=== PATIENT | female | born 2000 | race Caucasian/White ===

== ENCOUNTER 2024-05-29 09:28 | Outpatient (OUT) | payer OTHER, SELFPAY ==
--- NOTE | 2024-05-29 09:35 | US_ITS ---
[place] [id number] Patient Name: JORGE HESTER MRN: [id number] date: 2000 Sex: F Assigned Patient Location: US Current Patient Location: US Accession/Order Number: [id number] Exam Date: 05/29/2024 09:40 Report Date: 05/29/2024 10:29 At the request of: RONAN KOWALSKI Procedure: US OB growth EXAMINATION: US OB growth HISTORY: related condition in 3rd trimester, O26.93 COMPARISON: No relevant comparison available. FINDINGS: Heart Rate: 138.46 bpm Amniotic Fluid Volume: 15.7 cm, largest fluid pocket 5.3 cm Number: 1 Position: CEPHALIC BIOMETRY: BPD: 8.07 cm; 32 weeks 3 days; >97 % HC: 29.73 cm; 32 weeks 6 days; >97 % AC: 26.86 cm; 31 weeks 0 days; 89.90 % FL: 5.57 cm; 29 weeks 2 days; 40 % EFW: 1631.60 g; 89.90 %, 3 lbs. 10 oz. FL/AC: 20.74 FL/BPD: 69.03 HC/AC: 1.11 GESTATIONAL AGE: Age by EDC: 29 weeks 1 day ANANDA by EDC: 2024-08-13 Age by US: 31 weeks 3 days ANANDA by US: 2024-07-28 US/US OB growth IMPRESSION: BPD and head circumference above the 97th percentile Electronically authenticated by: BRET ROMAN Date: 05/29/2024 10:29
== END 2024-05-29 09:29 | disposition home or self-care (01) ==
LOC: US 09:32
PROVIDERS: Visit Provider Midwife
DX: O26.93 Pregnancy related conditions, unspecified, third trimester (principal); Z3A.29 29 weeks gestation of pregnancy
CPT/HCPCS: 76816

== ENCOUNTER 2024-07-16 13:07 | Outpatient (OUT) | payer OTHER, SELFPAY ==
--- NOTE | 2024-07-16 13:10 | US_ITS ---
The [address] [address] Patient Name: JORGE HESTER MRN: [id number] date: 2000 Sex: F Assigned Patient Location: US Current Patient Location: US Accession/Order Number: [id number] Exam Date: 07/16/2024 13:15 Report Date: 07/16/2024 14:09 At the request of: RONAN KOWALSKI Procedure: US OB growth EXAMINATION: US OB growth HISTORY: Large For Dates COMPARISON: ULTRASOUND OB GROWTH 05/29/2024 FINDINGS: Heart Rate: 133.00 bpm Amniotic Fluid Volume: 17.5 cm; normal range. Number: 1 Position: CEPHALIC BIOMETRY: BPD: 9.48 cm; 30 weeks 5 days; >97 % HC: 35.13 cm; 41 weeks 0 days; >97 % AC: 35.71 cm; 39 weeks 4 days; 97 % FL: 7.03 cm; 36 weeks 0 days; 46.40 % EFW: 3623.75 g; 97 % FL/AC: 19.68 FL/BPD: 74.15 HC/AC: 0.98 GESTATIONAL AGE: Age by EDC: 36 weeks 0 days ANANDA by EDC: 2024-08-13 Age by US: 38 weeks 6 days ANANDA by US: 2024-07-24 US/US OB growth IMPRESSION: 1. Single live intrauterine with growth detailed above. 2. Estimated weight is greater than 97th percentile. 3. Slightly prominent appearance of the intra-abdominal umbilical vein, 1.1 cm in diameter (of uncertain clinical significance). Electronically authenticated by: JAYDON HYDE Date: 07/16/2024 14:09
--- OUTSIDE RECORDS SUMMARY | 2024-07-16 13:25 | XMS_ITS | CCD ---
Author Organization [facility] Care Team Providers Care Lasting Machine Operator Bed Name Role Phone MISC, DOCTOR Unavailable Unavailable MISC, DOCTOR Unavailable Unavailable MISC, DOCTOR Unavailable Unavailable MISC, DOCTOR Unavailable Unavailable MISC, DOCTOR Unavailable Unavailable MISC, DOCTOR Unavailable Unavailable Tatyana Baptiste Attending Unavailable Tatyana Baptiste Referring Unavailable Victor HugoYossi Primary Care Unavailabl e WayMerlin barnett Attending Unavailable WayMerlin barnetth Referring Unavailable BroadbentYossi Hollis Primary Care Unavailabl e Merlin Sainz Attending Unavailable WayMerlin barnetth Referring Unavailable [facility] Unavailabl e LorieSonia Attending Unavailable LorieSonia khan Referring Unavailable [facility] Primary [facility] Unavailabl e Tatyana Baptiste Admitting Unavailable Tatyana Baptiste Attending Unavailable Tatyana Baptiste Referring Unavailable BroadbentYossi Hollis Primary Care Unavailabl e Unavailable Primary Care Provider Unavailabl e BHAVANIOJORDONE Attending Unavailable BHAVANIOGALRONAN Admitting Unavailable Hayley Phipps Unavailable Unavailable Primary Care Provider Unavailsrini Cohen MD, Dian Casper Primary Care Provider MARIIA MAGALLANES Attending Unavailable FLORO, RONAN Referring Unavailable FLORO, RONAN Referring Unavailable FLORORONAN L Attending Unavailable FLOROGALRONAN L Referring Unavailable FLORO, RONAN L Attending Unavailable FLORO, RONAN L Attending Unavailable FLORO, RONAN L Referring Unavailable FLORO, RONAN L Attending Unavailable FLORO, RONAN L Referring Unavailable FLORO, RONAN L Attending Unavailable FLORO, RONAN L Attending Unavailable FLORO, RONAN L Attending Unavailable FLORO, RONAN Ellis Attending Unavailable FLORO, RONAN L Attending Unavailable Medications Current Medications Medication Drug Class(es) Dates Sig (Normalized) Sig (Original) acetaminophen 325 mg oral tablet (1 source) Start: 04-28-2021 acetaminophen (TYLENOL) tablet 650 mg amoxicillin 875 mg oral tablet (1 source) Penicillin-class Antibacterial Start: 07-13-2022 take 1 tablet by mouth every twelve hours Amoxicillin 875 MG 1 tablet Orally every 12 hrs for 7 days Jun, Active benzocaine 200 mg/ml / menthol 5 mg/ml topical spray (1 source) Standardized Chemical Allergen Start: 04-28-2021 benzocaine-menthol (DERMOPLAST) 20-0.5 % spray Brompheniramine / Pseudoephedrine (1 source) alpha-Adrenergic Agonist Start: 07-13-2022 take 5 mL by mouth every six hours as needed Bromfed DM 30-2-10 MG/5ML 5 ml as needed Orally every 6 hrs Jun, Active docusate sodium 100 mg oral capsule (1 source) Start: 04-28-2021 docusate sodium (COLACE) capsule 100 mg ibuprofen 800 mg oral tablet (1 source) Nonsteroidal Anti-inflammatory Drug Start: 04-28-2021 ibuprofen (ADVIL;MOTRIN) tablet 800 mg lanolin 1000 mg/ml topical cream (1 source) Start: 04-28-2021 lansinoh lanolin ointment 1 ml methylergonovine maleate 0.2 mg/ml injection (1 source) Ergot Derivative Start: 04-28-2021 methylergonovine (METHERGINE) injection 200 mcg miSOPROStol 0.1 mg oral tablet (2 sources) Prostaglandin E1 Analog Start: 04-28-2021 miSOPROStol (CYTOTEC) tablet 800 mcg Start: 04-28-2021 miSOPROStol (C YTOTEC) tablet 200 mcg ondansetron 4 mg disintegrating oral tablet (1 source) Serotonin-3 Receptor Antagonist Start: 04-28-2021 ondansetron (ZOFRAN-ODT) disintegrating tablet 8 mg [id number] acid ( 19) 29 mg iron- 1 mg tablet,chewable (4 sources) [id number] acid ( 19) 29 mg iron- 1 mg tablet,chewable Chew 1 tablet and swallow in the morning. Active Vienva (1 source) Vienva Active witch keila 500 mg/ml medicated pad (1 source) Start: 04-28-2021 witch keila-gl ycerin ([facility]) pad Completed/Discontinued Medications Medication Drug Class(es) Dates Sig (Normalized) Sig (Original) calcium chloride 0.0014 meq/ml / potassium chloride 0.004 meq/ml / sodium chloride 0.103 meq/ml / sodium lactate 0.028 meq/ml injectable solution (1 source) Start: 04-27-2021 End: 04-28-2021 lactated ringers infusion ethinyl estradiol 0.02 mg / levonorgestrel 0.1 mg oral tablet (2 sources) Progestin, Estrogen, Progestin-containi ng Intrauterine Device Start: 06-18-2023 End: 01-09-2024 take 0.1-20 tablets by mouth in the morning levonorgestrel-eth inyl estradiol (Falmina) 0.1-20 MG-MCG tablet Indications: Encounter for gynecological examination (general) (routine) without abnormal findings Take 1 tablet by mouth in the morning. 84 tablet 3 06/18/2023 01/09/2024 Discontinued (Therapy completed) ferrous sulfate 325 mg oral tablet (2 sources) Start: 04-27-2021 End: 04-28-2021 ferrous sulfate (IRON 325) tablet 325 mg miSOPROStol (CYTOTEC) pre-split tablet TABS 25 mcg (1 source) Start: 04-27-2021 End: 04-28-2021 miSOPROStol (CYTOTEC) pre-split tablet TABS 25 mcg oxytocin (PITOCIN) 30 units in 500 mL infusion (1 source) Start: 04-27-2021 End: 04-28-2021 oxytocin (PITOCIN) 30 units in 500 mL infusion Problems Problem Classification Problem Date Documented Da te Episodic/Chronic Diabetes mellitus without complication (2 sources) Abnormal glucose tolerance test; Translations: [Other abnormal glucose] 06-04-2024 Episodic Immunizations and screening for infectious disease (1 source) Contact with and (suspected) exposure to other viral communicable diseases Episodic Other aftercare (1 source) Other termite control representative (current) drug therapy; Translations: [OTH ALF CURRENT DRUG THERAPY] Onset: 10-17-2017 Episodic Other complications of ; puerperium affecting management of mother (1 source) Maternal care for (suspected) abnormality and damage, unspecified, not applicable or unspecified; Translations: [Maternal care for (suspected) abnormality and damage, unspecified, not applicable or unspecified] Onset: 04-02-2024 Episodic Other complications of (4 sources) Finding related to ; Translations: [ related conditions, unspecified, third trimester] 05-07-2024 Episodic Other lower respiratory disease (2 sources) Cough; Translations: [Other cough] 06-22-2024 Episodic Other conditions (2 sources) Munef-ksf-cqotx at regardless of gestation period; Translations: [Other heavy for gestational age ] 07-06-2024 Episodic Other and delivery including normal (20 sources) Term ; Translations: [Encounter for supervision of normal , unspecified, unspecified trimester] Onset: 04-27-2021 Resolved: 04-29-2021 Episodic Other screening for suspected conditions (not mental disorders or infectious disease) (10 sources) Suspected disorder; Translations: [Encounter for suspected anomaly ruled out] Onset: 04-02-2024 04-02-2024 Episodic Other skin disorders (4 sources) Acne vulgaris; Translations: [ACNE VULGARIS] Onset: 10-12-2017 Episodic Other upper respiratory infections (1 source) Acute upper respiratory infection, unspecified Episodic Otitis media and related conditions (1 source) Otitis media, unspecified, right ear Episodic Unclassified (1 source) Possible Body Wall edema Onset: 04-02-2024 Viral infection (2 sources) Human papilloma virus infection; Translations: [Papillomavirus as the cause of diseases classified elsewhere] 03-09-2024 Episodic Results Test Name Value Interpretation Reference Range Facility Ultrasound - Officeon 2023 Radiology Study observation (narrative) [facility] Ultrasound - Officeon 2023 Radiology Study observation (narrative) [facility] Ultrasound - Officeon 2023 [facility] US OB 14+ WEEKS ANATOMY SCAN on 03-23-2024 US OB 14+ WEEKS ANATOMY SCAN TITLE OF EXAM: OB Ultrasound: REASON FOR EXAM: Anatomy scan. Comparison: None TECHNIQUE: Grayscale and color Doppler imaging is performed. Measurements: heart rate: 139 bpm KIMBERLY: 11.7 cm (9.1-20.9) BPD: 4.8 cm HC: 17.1 cm AC: 15.1 cm FL: 3.1 cm GA for sonogram: 19.8 wk (18.4-21.2) Cervix length: 5.8 cm ANANDA: 08/14/2024 Weight Estimate: Weight: 325 gm / 0 lbs, 11 oz (278-373 gm) Hadlock Normal: 300 gm (250-351 gm) Hadlock Wt%: 75% for 19.5m wks CLINICAL SUMMARY: A single intrauterine is noted in cephalic presentation. Four chamber heart is observed with a heart rate of 139. size is normal. growth: Consistent with normal growth. motion and organs seen: Normal intracranial anatomy is seen. tone is noted. body and limb movements are observed. spine, limbs, bladder, kidneys, and stomach are observed and within normal limits. Umbilical cord insertion and three vessel cord are identified and within normal limits. lungs, genitalia, four limbs are visualized and normal in appearance. Placenta is located posteriorly. Placenta is Grade 0/III Amniotic fluid volume is normal. Circuit Manager notes: ?Abnormal renals. Trace fluid, appear large. IMPRESSION: 1. Findings consistent with anasarca/hydrops. Question renal enlargement. detention deputy followup recommended emergent. 2. Normal growth. Single viable IUP at this time. Discussed with Gal Zapata CNM 03/25/24 12:36 p.m. [facility]. *This report is generated using voice recognition reporting (MiCursadae). On occasion PowerScribe erroneously drops words from the report or replaces the spoken word with similar sounding words. Please call with any questions/concerns regarding this report.* Dictated and transcribed 03/26/24/dpd This report has been electronically signed and approved by the interpreting radiologist. Electronically Signed Oscar Bajwa II, M.D. 2024-03-26 09:42:43 Normal Not Available Bacteria identified Cx Nom ( U)on 01-12-2024 Appearance (U) Adequate [facility] Internal identifier for Provider [id number] [facility] Specimen source Nom (Unsp spec) URINE [facility] STATUS FINAL [facility] - Drug toxicology on 01-12-2024 6-Eqitluwyay-0,5-Dimeth yl-3,3-Diphenylpyrrolid ine (EDDP) Ql (U) Negative NINF - 100 ng/mL [facility] Amphetamines Ql (U) Negative NINF - 5 00 ng/mL [facility] Barbiturates Ql (U) Negative NINF - 3 00 ng/mL [facility] Benzodiazepines Ql (U) Negative NINF - 100 ng/mL [facility] Benzoylecgonine Ql (U) Negative NINF - 150 ng/mL [facility] Opiates Ql (U) Negative NINF - 100 ng/mL [facility] oxyCODONE Ql (U) Negative NINF - 100 ng/mL [facility] Phencyclidine Ql (U) Negative NINF - 25 ng/mL [facility] Tetrahydrocannabinol Screen method >20 ng/mL Ql (U) Negative NINF - 20 ng/mL [facility] Laboratory - Microbiology an d Antimicrobial susceptibilityon 01-12-2024 Bacteria identified Cx Nom (U) SEE NOTE [facility] Comment on above: Mixed genital cade isolated. These superficial bacteria are not indicative of a urinary tract infection. No further organism identification is warranted on this specimen. If clinically indicated, recollect clean-catch, mid-stream urine and transfer immediately to Urine Culture Transport Tube. Laboratory - Miscellaneous t estson 01-12-2024 Service comment (Unsp spec) [Interp] [facility] Comment on above: This urine was ebony zed for the presence of WBC, RBC, bacteria, casts, and other formed elements. Only those elements seen were reported. Laboratory - Urinalysison Epithelial cells.squamous LM.HPF (Urine sed) [#/Area] 0-5 < OR = 5 /HPF [facility] RBC LM.HPF (Urine sed) [#/Area] 0-2 < OR = 2 /HPF [facility] N. gonorrhoeae DNA WOO+probe Ql (Cervical mucus)on 01-12-2024 C. trachomatis rRNA WOO+probe Ql (Unsp spec) Not detected NOT DETECTED [facility] N. gonorrhoeae rRNA WOO+probe Ql (Unsp spec) Not detected NOT DETECTED [facility] No Panel Informationon 01-11 (ALWAYS MESSAGE) [facility] Comment on above: See Note 1 Note 1 This drug testing is for medical treatment only. Analysis was performed as non-forensic testing and these results should be used only by healthcare providers to render diagnosis or treatment, or to monitor progress of medical conditions. For assistance with interpreting these drug results, please contact a [employer] Toxicology Specialist: [phone] ( ), M-F, 8am-6pm EST. The analytical perfo rmance characteristics of this assay, when used to test SurePath(TM) specimens have been determined by [employer]. The modifications have not been cleared or approved by the FDA. This assay has been validated pursuant to the CLIA regulations and is used for clinical purposes. For additional information, please refer to https://education.[employer]/faq/OZL526 (This link is being provided for information/ educational purposes only.) SPLIT 01/09/2024 FROM [id number] RunRev Organization Information Site ID: QPT Name: [facility] Address: [address] [place] [id number] Director: Ravinder Ndiaye MD [facility] [employer] [facility] [employer] Organization Information Site ID: QTW Name: [facility] Address: [address] [place] [id number] Director: Padmini Holly [facility] CBC panel Auto (Bld)on 01-09 Erythrocyte distribution width (RBC) [Ratio] 13.2 % 11.0 - 15.0 % [facility] Hematocrit (Bld) [Volume fraction] 40.9 % 35.0 - 45.0 % [facility] Hemoglobin (Bld) [Mass/Vol] 13.8 g/dL 11.7 - 15.5 g/dL [facility] MCH (RBC) [Entitic mass] 28.6 pg 27.0 - 33.[address] [facility] MCHC (RBC) [Mass/Vol] 33.7 g/dL 32.0 - 36.0 g/dL [facility] MCV (RBC) [Entitic vol] 84.7 fL 80.0 - 100.[address] [facility] Platelet mean volume (Bld) [Entitic vol] 9.4 fL 7.5 - 12.[address] [facility] Platelets (Bld) [#/Vol] 362 10*3/uL [facility] RBC (Bld) [#/Vol] 4.83 10*6/uL [facility] WBC (Bld) [#/Vol] 10.3 10*3/uL [facility] Chlamydia/GC by PCR Fabi Sw abon 01-10-2024 Chlamydia Dna(Pcr) Not detected [facility] Gonorrhoeae Dna(Pcr) Not detected [facility] Drug Screen, Urineon 024 Amphetamine/Methampheta mine Negative [facility] Barbiturate Screen Urine Negative [facility] Benzodiazepine Screen, Urine Negative [facility] Cocaine Metabolite Negative [facility] Methadone,Meconium Negative [facility] Opiate Quantitative Urine Negative [facility] Oxycodone Negative [facility] Phencyclidine Negative [facility] Thc Marijuana, Urine Negative [facility] Laboratory - Blood bankon ABO group Nom (Bld) A [facility] Blood group antibody screen Ql Detected [facility] Comment on above: Reference range No antibodies detected This assay is a screening test for the detection of red blood cell antibodies. The test is not to be used for pretransfusion screening or for the medical management of an alloimmunized . Rh Nom (Bld) Positive [facility] are Comment on above: For additional information, please refer to http://education.[facility]/faq/XED058 (This link is being provided for informational/ educational purposes only.) Laboratory - Chemistry and C hemistry - challengeon 01-10-2024 TSH Qn 3.26 m[IU]/L mIU/L [facility] are Comment on above: Reference Range > or = 20 Years 0.40-4.50 Ranges First trimester 0.26-2.66 Second trimester 0.55-2.73 Third trimester 0.43-2.91 Laboratory - Hematology and Cell countson 01-10-2024 HbA1c (Bld) [Mass fraction] 5.6 % [facility] Comment on above: For the purpose of s creening for the presence of diabetes: <5.7% Consistent with the absence of diabetes 5.7-6.4% Consistent with increased risk for diabetes (prediabetes) > or =6.5% Consistent with diabetes This assay result is consistent with a decreased risk of diabetes. Currently, no consensus exists regarding use of hemoglobin A1c for diagnosis of diabetes in children. According to [place] Diabetes Association (ADA) guidelines, hemoglobin A1c <7.0% represents optimal control in non- diabetic patients. Different metrics may apply to specific patient populations. Standards of Medical Care in Diabetes(ADA). This test was performed on the Yudith fabi c503 platform. Effective 06/03/23, a change in test platforms from the Handley Professional Fee Coder to the Yudith fabi c503 may have shifted HbA1c results compared to historical results. Based on laboratory validation testing conducted at [facility], the Yudith platform relative to the Handley platform had an average increase in HbA1c value of < or = 0.3%. This difference is within accepted variability established by the National Glycohemoglobin Standardization Program. Note that not all individuals will have had a shift in their results and direct comparisons between historical and current results for testing conducted on different platforms is not recommended. Laboratory - Microbiology an d Antimicrobial susceptibilityon 01-10-2024 HBV surface Ag IA Ql Non-Reactive NON-REACTIVE [facility] Comment on above: For additional information, please refer to http://education.[place].Bubok/faq/GOZ503 (This link is being provided for informational/ educational purposes only.) HCV Ab IA Ql Non-Reactive NON-REACTIVE [facility] Comment on above: HCV antibody was non-reactive. There is no laboratory evidence of HCV infection. In most cases, no further action is required. However, if recent HCV exposure is suspected, a test for HCV RNA (test code 86032) is suggested. For additional information please refer to http://education.[employer]/faq/XDE79r4 (This link is being provided for informational/ educational purposes only.) HIV 1+2 Ab+HIV1 p24 Ag IA Ql Non-Reactive NON-REACTIVE [facility] Comment on above: HIV-1 antigen and HI V-1/HIV-2 antibodies were not detected. There is no laboratory evidence of HIV infection. PLEASE NOTE: This information has been disclosed to you from records whose confidentiality may be protected by state law. If your state requires such protection, then the state law prohibits you from making any further disclosure of the information without the specific written consent of the person to whom it pertains, or as otherwise permitted by law. A general authorization for the release of medical or other information is NOT sufficient for this purpose. For additional information please refer to http://education.[employer]/faq/GWF408 (This link is being provided for informational/ educational purposes only.) The performance of this assay has not been clinically validated in patients less than 2 years old. Reagin Ab RPR Ql (S) Non-Reactive NON-REACTIVE [facility] Rubella virus IgG Qn (S) 1.98 [IU]/mL Index [facility] Comment on above: Index Interpretation ----- <0.90 Not consistent with immunity 0.90-0.99 Equivocal > or = 1.00 Consistent with immunity The presence of rubella IgG antibody suggests immunization or past or current infection with rubella virus. No Panel Informationon 01-09 [facility] [employer] e COLLECTION KIT GIVEN TO PATIENT. PATIENT ADVISED TO RETURN. RunRev Organization Information Site ID: QPT Name: [facility] Address: [address] [place] [address], [address] [place] [id number] Director: Ravinder Ndiaye MD [facility] CBC without diffon Hematocrit (Bld) [Volume fraction] 40.9 % [facility] Hemoglobin (Bld) [Mass/Vol] 13.8 g/dL [facility] Platelets (Bld) [#/Vol] 362 10*3/uL [facility] [employer] [facility] Rbc Mcv (Fl) By Automated Count 84.7 [email or web address] HIV 1&2 AB/AG Screen (P24 AG )on 01-09-2024 HIV 1&2 AB/AG Non-Reactive [facility] Hemoglobin A1con 01-09-2024 HbA1c (Bld) [Mass fraction] 5.6 % 4.0 - 6.0 % [facility] Hepatitis B surface antigeno n 01-09-2024 Hepatitis B Surface Antigen Non-Reactive [facility] Hepatitis C(HCV) Ab w/ Refle x to PCRon 01-09-2024 HCV Ab Ql (S) Non-Reactive [facility] No Panel Informationon 01-08 [facility] Rubella IGG immune statuson 01-09-2024 Rubella immune IgG 1.98 IU/mL [facility] Syphilis Total(Unknown Syphi lis Status)on 01-09-2024 Syphilis Non-Reactive [facility] TSHon 01-09-2024 Thyroid Stimulating (3Rd Generation) Hormone/ Tsh 3.26 [facility] Type and screenon 01-09-2024 Abo/Rh(D) Positive [facility] US OB < 14 WEEKS EARLYon US OB < 14 WEEKS EARLY TITLE OF EXAM: OB Ultrasound: REASON FOR EXAM: Dating TECHNIQUE: Grayscale imaging is performed. Measurements: heart rate: 158 bpm Sac: 4.2 cm CRL: 2.4 cm GA for sonogram: 9.1 wk (08.4-09.9) ANANDA: 08/14/2024 Clinical Summary: Early intrauterine is seen with positive cardiac activity. Yolk sac is identified and within normal limits. heart is observed with a heart rate of 158 bpm. Uterus and adnexae: No abnormalities seen. There is a minimal hypoechoic subchorionic collection measuring 2.7 x 2.0 cm in the lower uterine segment of doubtful significance. Dictated and transcribed 01/10/24/dpd This report has been electronically signed and approved by the interpreting radiologist. Electronically Signed Guillermo Mg M.D. 2024-01-10 15:47:47 Normal Not Available Ultrasound - Officeon 2023 [facility] COVID/FLU/RSV RT-PCRon 07-13 SARS-CoV-2 (COVID-19) RNA WOO+probe Ql (Unsp spec) Negative [place] [employer] Other COVID/FLU/RSV RT-PCR Negative [place] [facility] Other CBC auto differentialon 04-17 Absolute Eos # 0.04 [facility] Absolute Immature Granulocyte 0.06 [employer] Absolute Lymph # 1.90 [facility] Absolute [place] # 0.75 [facility] lt Basophils (Bld) [#/Vol] 10*3/uL [facility] Basophils/100 WBC (Bld) 0 % 0 - 2 % M [facility] [employer] Differential Type NOT REPORTED [facility] Eosinophils/100 WBC (Bld) 0 % Low 1 - 4 % [facility] Hematocrit (Bld) [Volume fraction] 37.1 % 36.3 - 47.1 % [facility] Hemoglobin.gastrointest inal spec 1 Ql (Stl) 12.2 g/dL 11.9 - 15.1 g/dL [facility] Immature granulocytes/100 WBC (Bld) 1 % High 0 [facility] Interpretation and review of laboratory results Abnormal [facility] Lymphocytes/100 WBC (Bld) 20 % Low 25 - 45 % [facility] MCH (RBC) [Entitic mass] 28.0 pg 25.2 - 33.5 pg [facility] MCHC (RBC) [Mass/Vol] 32.9 g/dL 28.4 - 34.8 g/dL [facility] MCV (RBC) [Entitic vol] 85.3 fL 82.6 - 102.9 fL [facility] Monocytes/100 WBC (Bld) 8 % 2 - 8 % M [facility] NRBC Automated 0.0 0.0 per 100 WBC [facility] Platelet distribution width (Bld) [Ratio] 15.6 % High 11.8 - 14.4 % [facility] Platelet Estimate NOT REPORTED [facility] Platelet mean volume (Bld) [Entitic vol] 9.9 fL 8.1 - 13.5 fL [facility] Platelets (Bld) [#/Vol] 286 10*3/uL [facility] RBC (Bld) [#/Vol] 4.35 10*6/uL 3.95 - 5.1 1 m/uL [facility] RBC (Bld) [#/Vol] NOT REPORTED [facility] Segmented neutrophils/100 WBC (Bld) 71 % High 34 - 64 % [facility] Segs Absolute 6.57 [facility] W[facility] (Bld) [#/Vol] 9.3 10*3/uL [facility] WBC (Bld) [#/Vol] NOT REPORTED [facility] CBC with Diffon 04-27-2021 Abs. Basophil <0.03 Normal 0.00-0.20 [facility] Comment on above: Performed By: #### C DP #### [facility] [address] [place] [address] Radiation Oncology Therapist: Mina Brunner MD Abs.Imm.Granulocyte 0.06 k/uL Normal 0.00-0.30 [facility] Comment on above: Performed By: #### C DP #### [facility] [address] [place] [address] Dr. [place], [place] [address] Radiation Oncology Therapist: Mina Brunner MD Abs.Neutrophil (Seg) 6.57 k/uL Normal 1.80-8.00 [facility] Comment on above: Performed By: #### C DP #### [address] [place], [place] [address] Radiation Oncology Therapist: Mina Brunner MD Basophils/100 WBC (Bld) 0 % Normal 0-2 [facility] Comment on above: Performed By: #### C DP #### [address] [place], [place] [address] Radiation Oncology Therapist: Mina Brunner MD Eosinophils (Bld) [#/Vol] 0.04 10*3/uL Normal 0.00-0.44 [facility] Comment on above: Performed By: #### C DP #### [address] [place], [place] [address] Radiation Oncology Therapist: Mina Brunner MD Eosinophils/100 WBC (Bld) 0 % Low 1-4 [facility] Comment on above: Performed By: #### C DP #### [address] [place], [place] [address] Radiation Oncology Therapist: Mina Brunner MD Erythrocyte distribution width (RBC) [Ratio] 15.6 % High 11.8-14.4 [facility] Comment on above: Performed By: #### C DP #### [address] [place] [id number] Radiation Oncology Therapist: Mina Brunner MD Hematocrit (Bld) [Volume fraction] 37.1 % Normal 36.3-47.1 [facility] Comment on above: Performed By: #### C DP #### [facility] [address] [place] [address] [place] [address] Radiation Oncology Therapist: Mina Brunner MD Hemoglobin (Bld) [Mass/Vol] 12.2 g/dL Normal 11.9-15.1 [facility] Comment on above: Performed By: #### C DP #### [facility] [address] [place], [place] [id number] Radiation Oncology Therapist: Mina Brunner MD Immature granulocytes/100 WBC (Bld) 1 % High 0 [facility] Comment on above: Performed By: #### C DP #### [address] [place], [place] [id number] Radiation Oncology Therapist: Mina Brunner MD Lymphocytes (Bld) [#/Vol] 1.90 10*3/uL Normal 1.20-5.20 [facility] Comment on above: Performed By: #### C DP #### [address] [place], [place] [id number] Radiation Oncology Therapist: Mina Brunner MD Lymphocytes/100 WBC (Bld) 20 % Low 25-45 [facility] Comment on above: Performed By: #### C DP #### [address] [place], [place] [id number] Radiation Oncology Therapist: Mina Brunner MD MCH (RBC) [Entitic mass] 28.0 pg Normal 25.2-33.5 [facility] Comment on above: Performed By: #### C DP #### [address] [place], [place] [id number] Radiation Oncology Therapist: Mina Brunner MD MCHC (RBC) [Mass/Vol] 32.9 g/dL Normal 28.4-34.8 [facility] Comment on above: Performed By: #### C DP #### [address] [place] [address] Radiation Oncology Therapist: Mina Brunner MD MCV (RBC) [Entitic vol] 85.3 fL Normal 82.6-102.9 [facility] Comment on above: Performed By: #### C DP #### [facility] [address] [place] [address] Radiation Oncology Therapist: Mina Brunner MD Monocytes (Bld) [#/Vol] 0.75 10*3/uL Normal 0.10-1.40 [facility] Comment on above: Performed By: #### C DP #### [facility] [address] [place], [place] [id number] Radiation Oncology Therapist: Mina Brunner MD Monocytes/100 WBC (Bld) 8 % Normal 2-8 [facility] Comment on above: Performed By: #### C DP #### [address] [place], [place] [address] Radiation Oncology Therapist: Mina Brunner MD Neutrophil (Seg) 71 % High 34-64 [facility] Comment on above: Performed By: #### C DP #### [address] [place], [place] [id number] Radiation Oncology Therapist: Mina Brunner MD NRBC Automated 0.0 per 100 WBC Normal 0.0 [facility] Comment on above: Performed By: #### C DP #### [address] [place], [facility] Radiation Oncology Therapist: Mina Brunner MD Platelet mean volume (Bld) [Entitic vol] 9.9 fL Normal 8.1-13.5 [facility] Comment on above: Performed By: #### C DP #### [address] [place], [place] [id number] Radiation Oncology Therapist: Mina Brunner MD Platelets (Bld) [#/Vol] 286 10*3/uL Normal 138-453 [facility] Comment on above: Performed By: #### C DP #### [address] [place] [id number] Radiation Oncology Therapist: Mina Brunner MD RBC (Bld) [#/Vol] 4.35 10*6/uL Normal 3.95-5.11 [facility] Comment on above: Performed By: #### C DP #### [facility] [address] [place], [place] [id number] Radiation Oncology Therapist: Mina Brunner MD WBC (Bld) [#/Vol] 9.3 10*3/uL Normal 4.5-13.5 [facility] Comment on above: Performed By: #### C DP #### [facility] [address] [place] [phone] Radiation Oncology Therapist: Mina Brunner MD Auto Diff Performed NOT REPORTED Normal [facility] Comment on above: Performed By: #### C DP #### [facility] [address] [place] [id number] Radiation Oncology Therapist: Mina Brunner MD Platelet Comment NOT REPORTED Normal [facility] Comment on above: Performed By: #### C DP #### [facility] [address] [place] [address] Dr. [place] [phone] Radiation Oncology Therapist: Mina Brunner MD RBC morphology finding Nom (Bld) NOT REPORTED Normal [facility] Comment on above: Performed By: #### C DP #### [facility] [address] [place], [facility] Radiation Oncology Therapist: Mina Brunner MD WBC Morphology NOT REPORTED Normal [facility] Comment on above: Performed By: #### C DP #### [facility] [address] [place] [phone] Radiation Oncology Therapist: Mina Brunner MD DRUG SCREEN MULTI URINEon Amphetamine Screen, Ur Negative NEGATIVE [facility] Barbiturate Screen, Ur Negative NEGATIVE [facility] Benzodiazepine Screen, Urine Negative NEGATIVE [facility] Buprenorphine Urine Negative NEGATIVE [facility] Cannabinoid Scrn, Ur Negative NEGATIVE [facility] Cocaine Metabolite, Urine Negative NEGATIVE [facility] MDMA, Urine NOT REPORTED NEGATIVE [facility] h Methadone Screen, Urine Negative NEGATIVE [facility] Methamphetamine, Urine Negative NEGATIVE [facility] Opiates, Urine Negative NEGATIVE [facility] th Oxycodone Screen, Ur Negative NEGATIVE [facility] Phencyclidine, Urine Negative NEGATIVE [facility] Propoxyphene, Urine Negative NEGATIVE [facility] Test Information NOT REPORTED [facility] Tricyclic Antidepressants, Urine Negative NEGATIVE [facility] Comment on above: Drug screen results are to be used for medical purposes only. All positive results are unconfirmed. Testing for employment or legal uses should be sent to a reference laboratory for confirmation. [facility] Drug Scr, Abuse, Uron 2020 Amphetamine(s),Ur Negative Normal NEG [facility] Comment on above: Performed By: #### D AU #### [facility] [address] [place] [address] Dr. [place] [phone] Radiation Oncology Therapist: Mina Brunner MD Barbiturate(s),Ur Negative Normal NEG [facility] Comment on above: Performed By: #### D AU #### [facility] [address] [place] [phone] Radiation Oncology Therapist: Mina Brunner MD Benzodiazepine(s) Negative Normal NEG [facility] Comment on above: Performed By: #### D AU #### [facility] [address] [place] [phone] Radiation Oncology Therapist: Mina Brunner MD Buprenorphrine, Ur Negative Normal NEG [facility] Comment on above: Performed By: #### D AU #### [facility] [address] [place] [phone] Radiation Oncology Therapist: Mina Brunner MD Cannabinoid(s),Ur Negative Normal NEG [facility] Comment on above: Performed By: #### D AU #### [facility] [address] [place] [address] Radiation Oncology Therapist: Mina Brunner MD Cocaine Metabolite Negative Normal NEG [facility] Comment on above: Performed By: #### D AU #### [facility] [address] [place], [facility] Radiation Oncology Therapist: Mina Brunner MD Methadone Ql (U) Negative Normal [facility] Comment on above: Performed By: #### D AU #### [facility] [address] [place], [facility] Radiation Oncology Therapist: Mina Brunner MD Methamphetamine, Ur Negative Normal NEG [facility] Comment on above: Performed By: #### D AU #### [facility] [address] [place] [address] Dr. [place] [phone] Radiation Oncology Therapist: Mina Brunner MD Opiate(s), Ur Negative Normal NEG [facility] Comment on above: Performed By: #### D AU #### [facility] [address] [place], [facility] Radiation Oncology Therapist: Mina Brunner MD Oxycodone, Urine Negative Normal [facility] Comment on above: Performed By: #### D AU #### [facility] [address] [place] [address] Dr. [place], [facility] Radiation Oncology Therapist: Mina Brunner MD Phencyclidine, Ur Negative Normal [facility] Comment on above: Performed By: #### D AU #### [facility] [address] [place], [facility] Radiation Oncology Therapist: Mina Brunner MD Propoxyphene,Urine Negative Normal NEG [facility] Comment on above: Performed By: #### D AU #### [facility] [address] [place] [address] Radiation Oncology Therapist: Mina Brunner MD Tricyclic antidepressants Screen Ql (U) Negative Normal [facility] Comment on above: Result Comment: Drug screen results are to be used for medical purposes only. All positive results are unconfirmed. Testing for employment or legal uses should be sent to a reference laboratory for confirmation. Performed By: #### D AU #### [facility] [address] [place] [address] Radiation Oncology Therapist: Mina Brunner MD Interpretive Info NOT REPORTED Normal [facility] Comment on above: Performed By: #### D AU #### [facility] [address] [place] [address] Radiation Oncology Therapist: Mina Brunner MD MDMA, Urine NOT REPORTED Normal NEG [facility] Comment on above: Performed By: #### D AU #### [facility] [address] [place] [address] Radiation Oncology Therapist: Mina Brunner MD Chlamydia Cultureon 04-06-20 [facility] [employer] Phone: GBS, External Resulton 04-06 GBS, External Result Negative [facility] [employer] Phone: [facility] [employer] Phone: HIV Screenon 10-05-2020 HIV Ag/Ab NR [facility] [employer] Phone: N. GONORRHOEAE CULTUREon Culture, Gonorrhoeae Negative [facility] [employer] Phone: [facility] [employer] Phone: No Panel Informationon 10-05 [facility] [employer] Phone: PROFILE Ion 021 ABO/Rh Positive [facility] [employer] Phone: Hepatitis B Surface Ag Negative [facility] [employer] Phone: Rubella virus IgG Ql (S) Positive [facility] [employer] Phone: T. pallidum, IgG NR [facility] August Phone: 12-18 Yearson 01-03-2018 12-18 Years Chief [id number] year History of Present IllnessMACKENZIE is 17 year old here today with mother for routine health maintenance exam. Parental Concerns Raised Today Include: Started with a ST about 2 days ago. No fever. Eating and drinking normal. Sleeping well. No congestion or rhinorrhea. Saw dermatology about 3 months ago, started on Accutane and is now on OCP with this. Doing well and helping the acne. MEL has not had any serious prior vaccine reactions. General Health: MEL overall is in good health. MEL has a good relationship with family. Home: She eats meals with family Eating: Diet is balanced, beverages are non-sweetened, calcium source is adequate and she does not have concerns about body appearance Dental Care: MEL has a dental home and dental hygiene is regularly performed Sleep patterns are appropriate. Education: She is in a public school, social interaction is age appropriate. School behaviors are within normal limits. School performance is at grade level. Will be a senior. Activities: Peer relationships are normal, exercises regularly and MEL participates in extracurricular activities, hobbies/interests. She enjoys cheer and being with friends. Sports Participation Screening: Pre-sports questions assessed and appropriate. No history of concussion or head injury. Menstrual Status: Age at menarche was [12] . Recent menstrual periods: bleeding has been normal. The cycles have been regular. The duration of her recent periods has been regular. On OCP. Safety: MEL uses safety belts or equipment, drives without distractions, uses sunscreen, practices water safety and has nonviolent peer relationships Mental Health: MEL does not express concerning mental health symptoms, has never had thoughts of hurting themselves or has never considered suicide and displays self confidence well. Review of Systemsas per the HPI Active Problems Encounter for vaccination (V05.9) (Z23) Past Medical History History of acne (V13.3) (Z87.2) History of hoarseness (V13.9) (Z87.898) History of laryngitis (V12.69) (Z87.09) History of Wears contact lenses (V41.0) (Z97.3) History of Wears glasses (V49.89) (Z97.3) Family History No pertinent family history No pertinent family history Social History Lives with parents No tobacco/smoke exposure Non-smoker (V49.89) (Z78.9) Pets in the home Allergies No Known Drug Allergies Recorded By: Ruthie Pennington; 05/02/2016 9:13:16 AM Vitals Vital Signs Recorded: [id number] 03:37PMHeart Wcpi02Nmumcahr127Hx bnkwkcs78Tpredq1 ft 3.5 zbNeukic471 lb 4 ozBMI Vhmbqeyqoz27.49BSA Calculated1.58BMI Hfhrwhuhaw86 %2-20 Stature Hpuqaedocl18 %2-20 Weight Tvncknuohq24 %O2 Cwyijobiiv63 Physical ExamConstitutional: Well developed, well nourished, well hydrated and no acute distress. Eyes: Pupils equal, round, reactive to light. Extra-ocular movement normal. HEENT: TM's normal color, normal landmarks, no fluid, non-retracted. External auditory canals without swelling, redness or tenderness. Pharyngeal mucosa normal. No erythema, exudate, or lesions. Mucous membranes moist. Neck: Full range of motion. No significant adenopathy. Pulmonary: No rales or wheezing. Good air exchange. Cardiovascular: Regular rate and rhythm. No significant murmur. Chest: Deferred, no concerns. Abdomen: Soft, non-tender, no masses. No hepatomegaly or splenomegaly. Genitourinary: Deferred, no concerns. Lymphatic: No significant cervical adenopathy. MS: Back straight. No scoliosis Neurologic: Normal gait. Reflexes: Normal. Deep tendon reflexes: 1+ right patella and 1+ left patella. Diagnoses/Problems Encounter for routine child health examination without abnormal findings (V20.2)(Z00.129) BMI (body mass index), pediatric, 5% to less than 85% for age (V85.52) (Z68.52) Patient Discussion/SummaryI mpression: MEL strange growth and development is appropriate for age. immunizations are current. Child health and safety topics were reviewed. Discussed eating a balanced diet, limiting TV/screen time, participating in physical activities 60 min daily and Internet and social media safety. Promoted community involvement and family time. Topics discussed to support safety and risk reduction included: sun safety and tobacco, alcohol, drugs. Doing well. Return in [address] looks viral at this time, push fluids. If symptoms get worse return to the office. Signatures Electronically signed by : CONTRERAS Galvan; Jan 03 2018 4:11PM EST (Author) Normal [facility] CBC AUTO DIFFon 10-12-2017 Basophils Auto #/vol (Bld) 0.1 103/ul Normal 0.0-0.1 [facility] Comment on above: Performed By: #### C BC ####[place] [address] [place], [place] [address]Ybbnzz Kathleen Basophils/100 WBC Auto (Bld) 0.7 % Normal 0.2-2.0 [facility] Comment on above: Performed By: #### C BC ####[place] [address] [place], [place] [address]Xsjusg Kathleen Eosinophils 0.1 103/ul Normal 0.0-0.7 [facility] Comment on above: Performed By: #### C BC ####[place] [address] [place], [place] [address]Gerken Kathleen Eosinophils/100 leukocytes 1.3 % Normal 0.9-7.0 [facility] Comment on above: Performed By: #### C BC ####[place] [address] [place] [id number] Kathleen Erythrocyte distribution width Auto Ratio (RBC) 13.9 % Normal 11.0-15.0 [facility] Comment on above: Performed By: #### C BC ####[place] [address] [place] [address]Gerken Kathleen Erythrocytes (RBC) 5.06 106/ul Normal 3.40-5.30 [facility] Comment on above: Performed By: #### C BC ####[place] [address] [place], [place] [address]Xmqzhz Kathleen Hematocrit (HCT) 41.3 % Normal 36.0-48.0 [facility] Comment on above: Performed By: #### C BC ####[place] [address] [place], [place] [address]Sqaawo Kathleen Hemoglobin mass conc (Bld) 13.8 g/dL Normal 12.0-16.0 [facility] Comment on above: Performed By: #### C BC ####[place] [address] Kathleen IG # 0.02 10e3/ul Normal 0.00-0.03 [facility] Comment on above: Performed By: #### C BC ####[place] [address] [place] [address] Kathleen IG % 0.3 % Normal 0.0-0.5 [facility] Comment on above: Performed By: #### C BC ####[place] [address] [place] [address] Kathleen Lymphocytes 2.2 103/ul Normal 1.2-3.8 [facility] Comment on above: Performed By: #### C BC ####[place] [address] [place] [address] Kathleen Lymphocytes/100 leukocytes 31.0 % Normal 20.5-60.0 [facility] Comment on above: Performed By: #### C BC ####[place] [address] [place] [address] [place] MANUAL DIFF REQ NO Normal [facility] Comment on above: Performed By: #### C BC ####[place] [address] [place] [address] Kathleen MCH 27.3 pg Normal 26.7-34.0 [facility] Comment on above: Performed By: #### C BC ####[place] [address] [place] [address] Kathleen MCHC mass conc (RBC) 33.4 g/dL Normal 29.9-35.2 [facility] Comment on above: Performed By: #### C BC ####[place] [address] [place] [address] Kathleen MCV 81.6 fL Normal 79.1-95.6 [facility] Comment on above: Performed By: #### C BC ####[place] [address] [place] [address] Kathleen Monocytes 0.5 103/ul Normal 0.3-0.8 [facility] Comment on above: Performed By: #### C BC ####[place] [address] [place], [place] [address]Gvlbai Kathleen Monocytes/100 leukocytes 7.4 % Normal 1.7-12.0 [facility] Comment on above: Performed By: #### C BC ####[place] [address] [place], [place] [address]Vssbix Kathleen Neutrophils 4.2 103/ul Normal 1.4-6.5 [facility] Comment on above: Performed By: #### C BC ####[place] [address] [place], [place] [address]Lvzspy Kathleen Neutrophils/100 WBC Auto (Bld) 59.3 % Normal 43.0-75.0 [facility] Comment on above: Performed By: #### C BC ####[place] [address] [place] [address]Pwhzqs Kathleen Platelet mean volume (PMV) 9.3 fL Critically low 9.5-13.5 [facility] Comment on above: Performed By: #### C BC ####[place] [address] [place] [address]Wnrjtd Kathleen Platelets 330 103/ul Normal 150-450 [facility] Comment on above: Performed By: #### C BC ####[place] [address] [place] [address]Ndczbp Kathleen WBC (Leukocytes) 7.1 103/ul Normal 4.0-11.0 [facility] Comment on above: Performed By: #### C BC ####[place] [address] [place], [place] [address]Waorqs Kathleen CHOLESTEROL TOTALon 10-13-19 18 Cholesterol 283 mg/dL Critically high 104-227 [facility] Comment on above: Performed By: #### A LT, TRIG, CHOL, AST ####[place] [address] [place], [place] [address]Wlmkwk Kathleen SGOTon 10-12-2017 Aspartate aminotransferase (AST) 35 U/L Normal 14-36 [facility] Comment on above: Performed By: #### A LT, TRIG, CHOL, AST ####[place] [address] [place], [place] [address]Pkuzja Kathleen SGPTon 10-12-2017 Alanine aminotransferase (ALT) 30 U/L Normal 9-[address] [facility] Comment on above: Performed By: #### A LT, TRIG, CHOL, AST ####[place] [address] [place], [place] [address]Odgevk Kathleen TRIGLYCERIDEon 10-12-2017 Triglyceride 171 mg/dL Normal 53-208 [facility] Comment on above: Performed By: #### A LT, TRIG, CHOL, AST ####[place] [address] [place], [place] [address]Nrbvpl Kathleen CBC AUTO DIFFon 06-19-2017 Basophils Auto #/vol (Bld) 0.0 103/ul Normal 0.0-0.1 [facility] Comment on above: Performed By: #### C BC ####[place] [address] [place] [address] Kathleen Basophils/100 WBC Auto (Bld) 0.5 % Normal 0.2-2.0 [facility] Comment on above: Performed By: #### C BC ####[place] [address] [place] [address] Kathleen Eosinophils 0.1 103/ul Normal 0.0-0.7 [facility] Comment on above: Performed By: #### C BC ####[place] [address] [place] [address] Kathleen Eosinophils/100 leukocytes 0.8 % Critically low 0.9-7.0 [facility] Comment on above: Performed By: #### C BC ####[place] [address] [place], [place] [address]Gerken Kathleen Erythrocyte distribution width Auto Ratio (RBC) 13.3 % Normal 11.0-15.0 [facility] Comment on above: Performed By: #### C BC ####[place] [address] [place], [place] [address]Gerken Kathleen Erythrocytes (RBC) 4.70 106/ul Normal 3.40-5.30 [facility] Comment on above: Performed By: #### C BC ####[place] [address] Kathleen Hematocrit (HCT) 38.3 % Normal 36.0-48.0 [facility] Comment on above: Performed By: #### C BC ####[place] [address] [place] [address]Gerken Kathleen Hemoglobin mass conc (Bld) 13.0 g/dL Normal 12.0-16.0 [facility] Comment on above: Performed By: #### C BC ####[place] [address] [place] [address] Kathleen IG # 0.01 10e3/ul Normal 0.00-0.03 [facility] Comment on above: Performed By: #### C BC ####[place] [address] [place] [address] Kathleen IG % 0.2 % Normal 0.0-0.5 [facility] Comment on above: Performed By: #### C BC ####[place] [address] [place] [address] Kathleen Lymphocytes 2.2 103/ul Normal 1.2-3.8 [facility] Comment on above: Performed By: #### C BC ####[place] [address] [place] [address] Kathleen Lymphocytes/100 leukocytes 36.4 % Normal 20.5-60.0 [facility] Comment on above: Performed By: #### C BC ####[place] Jxaspwbpcc7538 [address] Kathleen MANUAL DIFF REQ NO Normal [facility] Comment on above: Performed By: #### C BC ####[place] [address] [place] [address] Kathleen MCH 27.7 pg Normal 26.7-34.0 [facility] Comment on above: Performed By: #### C BC ####[place] [address] [place] [address] Kathleen MCHC mass conc (RBC) 33.9 g/dL Normal 29.9-35.2 [facility] [place] Comment on above: Performed By: #### C BC ####[place] [address] [place] [id number] Wang MCV 81.5 fL Normal 79.1-95.6 [facility] [place] Comment on above: Performed By: #### C BC ####[place] Z[address]ws[address]aa45[address] [place] [id number] Kathleen Monocytes 0.4 103/ul Normal 0.3-0.8 [facility] [place] Comment on above: Performed By: #### C BC ####[place] [address] [place] [id number] Wang Monocytes/100 leukocytes 6.5 % Normal 1.7-12.0 [facility] [place] Comment on above: Performed By: #### C BC ####[place] [address] [place], [place] [id number] Kathleen Neutrophils 3.4 103/ul Normal 1.4-6.5 [facility] [place] Comment on above: Performed By: #### C BC ####[place] [address] [place], [place] [id number] Kathleen Neutrophils/100 WBC Auto (Bld) 55.6 % Normal 43.0-75.0 [facility] [place] Comment on above: Performed By: #### C BC ####[place] [address] [place], [place] [address]Lashell Wang Platelet mean volume (PMV) 9.4 fL Critically low 9.5-13.5 [facility] [place] Comment on above: Performed By: #### C BC ####[place] [address] [place] [id number] Kathleen Platelets 297 103/ul Normal 150-450 [facility] [place] Comment on above: Performed By: #### C BC ####[place] Qiofvjvmhx[address] [place] [id number] Kathleen WBC (Leukocytes) 6.2 103/ul Normal 4.0-11.0 [facility] Comment on above: Performed By: #### C BC ####[place] Hesx[address]wu[address] CHOLESTEROL TOTALon 06-19-19 18 Cholesterol 223 mg/dL Normal 104-227 [facility] Comment on above: Performed By: #### A LT, AST, TRIG, CHOL ####[place] Dcoozmjwey[address] SGOTon 06-19-2017 Aspartate aminotransferase (AST) 30 U/L Normal 14-36 [facility] Comment on above: Performed By: #### A LT, AST, TRIG, CHOL ####[place] Dxvcbdbndx8558 [address] SGPTon 06-19-2017 Alanine aminotransferase (ALT) 30 U/L Normal 9-[address] [facility] Comment on above: Performed By: #### A LT, AST, TRIG, CHOL ####[place] Coqafxgqjo6214 [address] TRIGLYCERIDEon 06-19-2017 Triglyceride 163 mg/dL Normal 53-208 [facility] Comment on above: Performed By: #### A LT, AST, TRIG, CHOL ####[place] Xu[address]ibarze[address] Vital Signs Date Time Vital Sign Value Performing Clinician Facility 07-06-2024 14:33-0500 Body mass index (BMI) [Ratio] 30.65 kg/m2 Ronan Zapata [facility] Work Phone: [facility] 07-06-2024 14:33-0500 Body weight 78.47 kg Ronan Zapata CN Work Phone: [facility] 07-06-2024 14:33-0500 Diastolic blood pressure 70 mm[Hg] Ronan Zapata CN Work Phone: [facility] 07-06-2024 14:33-0500 Systolic blood pressure 110 mm[Hg] Ronan Zapata CN Work Phone: [facility] 06-22-2024 14:21-0500 Body mass index (BMI) [Ratio] 30.11 kg/m2 Ronan Floro CNM Work Phone: [facility] 06-22-2024 14:21-0500 Body weight 77.11 kg Ronan Floro CNM Work Phone: [facility] 06-22-2024 14:21-0500 Diastolic blood pressure 60 mm[Hg] Ronan Floro CNM Work Phone: [facility] 06-22-2024 14:21-0500 Systolic blood pressure 110 mm[Hg] Ronan Floro CNM Work Phone: [facility] 06-04-2024 09:28-0500 Body mass index (BMI) [Ratio] 29.41 kg/m2 Ronan Floro CNM Work Phone: [facility] 06-04-2024 09:28-0500 Body weight 75.3 kg Ronan Floro CNM Work Phone: [facility] 06-04-2024 09:28-0500 Diastolic blood pressure 70 mm[Hg] Ronan Floro CNM Work Phone: [facility] 06-04-2024 09:28-0500 Systolic blood pressure 110 mm[Hg] Ronan Floro CNM Work Phone: [facility] 05-07-2024 10:59-0500 Body mass index (BMI) [Ratio] 28.7 kg/m2 Ronan Floro CNM Work Phone: [facility] 05-07-2024 10:59-0500 Body weight 73.48 kg Ronan Floro CNM Work Phone: [facility] 05-07-2024 10:59-0500 Diastolic blood pressure 70 mm[Hg] Ronan Floro CNM Work Phone: [facility] 05-07-2024 10:59-0500 Systolic blood pressure 120 mm[Hg] Ronan Floro CNM Work Phone: [facility] 04-06-2024 12:53-0400 Body mass index (BMI) [Ratio] 26.75 kg/m2 Ronan Floro CNM Work Phone: [facility] 04-06-2024 12:53-0400 Body weight 68.49 kg Ronan Floro CNM Work Phone: [facility] 04-06-2024 12:53-0400 Diastolic blood pressure 70 mm[Hg] Ronan Floro CNM Work Phone: [facility] 04-06-2024 12:53-0400 Systolic blood pressure 112 mm[Hg] Ronan Floro CNM Work Phone: [facility] 04-02-2024 13:06-0400 Body weight 67.68 kg Mariia Magallanes MD Work Phone: [facility] 04-02-2024 13:06-0400 Diastolic blood pressure 72 mm[Hg] Mariia Magallanes MD Work Phone: [facility] 04-02-2024 13:06-0400 Heart rate 80 /min Mariia Magallanes MD Work Phone: [facility] 04-02-2024 13:06-0400 Systolic blood pressure 107 mm[Hg] Mariia Magallanes MD Work Phone: [facility] 03-09-2024 16:02-0400 Body mass index (BMI) [Ratio] 26.39 kg/m2 Ronan Floro CNM Work Phone: [facility] 03-09-2024 16:02-0400 Body weight 67.59 kg Ronan Floro CNM Work Phone: [facility] 03-09-2024 16:02-0400 Diastolic blood pressure 70 mm[Hg] Ronan Floro CNM Work Phone: [facility] 03-09-2024 16:02-0400 Systolic blood pressure 110 mm[Hg] Ronan Floro CNM Work Phone: [facility] 02-10-2024 11:16-0400 Body mass index (BMI) [Ratio] 26.04 kg/m2 Ronan Floro CNM Work Phone: [facility] 02-10-2024 11:16-0400 Body weight 66.68 kg Ronan Floro CNM Work Phone: [facility] 02-10-2024 11:16-0400 Diastolic blood pressure 70 mm[Hg] Ronan Bhavanio CNM Work Phone: [facility] 02-10-2024 11:16-0400 Systolic blood pressure 112 mm[Hg] Ronan Bhavanio CNM Work Phone: [facility] 01-09-2024 14:12-0400 Body mass index (BMI) [Ratio] 25.51 kg/m2 Ronan Bhavanio CNM Work Phone: [facility] 01-09-2024 14:12-0400 Body weight 65.32 kg Ronan Castilloo CNM Work Phone: [facility] 07-13-2022 15:05-0500 Body height 160.02 cm Hayley Phipps Other [email or web address] Other 07-13-2022 15:05-0500 Body mass index (BMI) [Ratio] 24.8 kg/m2 Hayley Phipps Other [email or web address] Other 07-13-2022 15:05-0500 Body temperature 100.4 [degF] Hayley Phipps Other [email or web address] Other 07-13-2022 15:05-0500 Body weight 63.5 kg Hayley Moise Other [email or web address] Other 07-13-2022 15:05-0500 Respiratory rate 18 /min Hayley Phipps Other [email or web address] Other 07-13-2022 15:05-0500 SaO2% (BldA) [Mass fraction] 98 % Hayley Phipps Other [email or web address] Other 04-30-2021 08:30-0500 Body temperature 98.1 [degF] Ronan Bhavanio CONDUCTOR AND ENGINEER - CNM Work Phone: [employer] 04-30-2021 08:30-0500 Diastolic blood pressure 71 mm[Hg] Ronan Bhavanio CONDUCTOR AND ENGINEER - CNM Work Phone: [employer] 04-30-2021 08:30-0500 Heart rate 79 /min Ronan Bhavanio CONDUCTOR AND ENGINEER - CNM Work Phone: [employer] 04-30-2021 08:30-0500 Respiratory rate 16 /min Ronan Bhavanio CONDUCTOR AND ENGINEER - CNM Work Phone: [employer] 04-30-2021 08:30-0500 Systolic blood pressure 111 mm[Hg] Ronan Bhavanio CONDUCTOR AND ENGINEER - CNM Work Phone: [employer] 04-28-2021 10:25-0500 SaO2% (BldA) [Mass fraction] 98 % Ronan Bhavanio CONDUCTOR AND ENGINEER - CNM Work Phone: [employer] 04-28-2021 05:40-0500 Body height 160 cm Ronan Bhavanio CONDUCTOR AND ENGINEER - CNM Work Phone: [employer] 04-28-2021 05:40-0500 Body mass index (BMI) [Ratio] 27.1 kg/m2 Ronan Bhavanio CONDUCTOR AND ENGINEER - CNM Work Phone: [employer] 04-28-2021 05:40-0500 Body weight 69.4 kg Ronan Bhavanio CONDUCTOR AND ENGINEER - CNM Work Phone: [employer] Encounters Encounter Date Encounter Type Care Provider Facility Start: 07-13-2024 End: 07-13-2024 Telephone encounter Dian Cohen MD Work Phone: [facility] Start: 07-06-2024 End: 07-06-2024 ambulatory RONAN L FLORO Not Available Start: 07-06-2024 End: 07-06-2024 Subsequent care visit Ronan L Floro CNM Work Phone: [facility] Comment on above: Encounter for superv ision of other normal , third trimester (Primary Dx); Large for dates Start: 07-06-2024 End: 07-06-2024 Bamboo flowsheet Ronan L Floro CNM Work Phone: [facility] Start: 07-06-2024 End: 07-06-2024 Bamboo flowsheet Ronan L Floro CNM Work Phone: [facility] Start: 06-22-2024 End: 06-22-2024 ambulatory RONAN L FLORO Not Available Start: 06-22-2024 End: 06-22-2024 Bamboo flowsheet Ronan L Floro CNM Work Phone: [facility] Start: 06-22-2024 End: 06-22-2024 Bamboo flowsheet Ronan L Floro CNM Work Phone: [facility] Start: 06-22-2024 End: 06-22-2024 Subsequent care visit Ronan L Floro CNM Work Phone: [facility] Comment on above: Encounter for superv ision of other normal , third trimester (Primary Dx); Other cough Start: 06-04-2024 End: 06-04-2024 ambulatory RONAN L FLORO Not Available Start: 06-04-2024 End: 06-04-2024 Subsequent care visit Ronan L Floro CNM Work Phone: [facility] Comment on above: Encounter for superv ision of other normal , second trimester (Primary Dx); Encounter for supervision of other normal , third trimester; Elevated glucose tolerance test Start: 05-29-2024 End: 05-29-2024 Telephone encounter Ronan Zapata CNM Work Phone: [facility] Start: 05-07-2024 End: 05-07-2024 Bamboo flowsheet Ronan Caleb Castilloo CNM Work Phone: [facility] Start: 05-07-2024 End: 05-07-2024 Bamboo flowsheet Ronan Caleb Castilloo CNM Work Phone: [facility] Start: 05-07-2024 End: 05-07-2024 ambulatory RONAN L FLORO Not Available Start: 05-07-2024 End: 05-07-2024 Subsequent care visit Ronan Zapata CNM Work Phone: [facility] Comment on above: Encounter for superv ision of other normal , second trimester (Primary Dx); Screening for diabetes mellitus; Screening for iron deficiency anemia; related condition in third trimester Start: 04-06-2024 End: 04-06-2024 Bamboo flowsheet Ronan Castilloo CNM Work Phone: [facility] Start: 04-06-2024 End: 04-06-2024 Bamboo flowsheet Ronan Caleb Castilloo CNM Work Phone: [facility] Start: 04-06-2024 End: 04-06-2024 Chart abstracting Scanning Provider External [facility] [place] Start: 04-06-2024 End: 04-06-2024 flow sheet Ronan Castilloo CNM Work Phone: [facility] Comment on above: Encounter for superv ision of other normal , second trimester (Primary Dx) Start: 04-06-2024 End: 04-06-2024 ambulatory RONAN L FLORO Not Available Start: 04-02-2024 End: 04-02-2024 Office consultation new/estab patient 40 min Mariia Magallanes MD Work Phone: [facility] [place] Comment on above: Encounter for suspec olivia anomaly ruled out (Primary Dx) Start: 04-02-2024 End: 04-02-2024 ambulatory RONAN FLORO [place] Start: 04-01-2024 End: 04-01-2024 Chart abstracting Mariia Maglalanes MD Work Phone: [facility] [place] Start: 04-01-2024 End: 04-01-2024 Telephone encounter Ronan L Floro CNM Work Phone: [facility] Start: 03-30-2024 End: 03-30-2024 Chart abstracting Mariia Magallanes MD Work Phone: [facility] [place] Start: 03-23-2024 End: 03-23-2024 ambulatory RONAN L FLORO Not Available Start: 03-09-2024 End: 03-09-2024 Subsequent care visit Ronan L Floro CNM Work Phone: [facility] Comment on above: Encounter for superv ision of other normal , second trimester (Primary Dx); related condition in second trimester; High risk HPV infection Start: 03-09-2024 End: 03-09-2024 ambulatory RONAN L FLORO Not Available Start: 03-09-2024 End: 03-09-2024 Bamboo flowsheet Ronan L Floro CNM Work Phone: [facility] Start: 03-09-2024 End: 03-09-2024 Bamboo flowsheet Ronan L Floro CNM Work Phone: [facility] Start: 02-10-2024 End: 02-10-2024 Bamboo flowsheet Ronan L Floro CNM Work Phone: [facility] Start: 02-10-2024 End: 02-10-2024 Bamboo flowsheet Ronan L Floro CNM Work Phone: [facility] Start: 02-10-2024 End: 02-10-2024 ambulatory RONAN Caleb CASTILLOO Not Available Start: 02-10-2024 End: 02-10-2024 Subsequent care visit Ronan Zapata CNM Work Phone: [facility] Comment on above: Encounter for superv ision of other normal , second trimester (Primary Dx); Encounter for supervision of other normal , first trimester Start: 01-09-2024 End: 01-09-2024 Initial care visit Ronan Zapata CNM Work Phone: [facility] Comment on above: Encounter for superv ision of other normal , first trimester (Primary Dx) Start: 01-09-2024 End: 01-09-2024 ambulatory RONAN CASTILLOO Not Available Start: 08-06-2023 End: 08-06-2023 ambulatory RONAN Caleb FLORO Not Available Start: 07-13-2022 End: 07-13-2022 ambulatory Hayley Phipps Other [employer] Other Start: 07-13-2022 Office outpatient vi sit 15 minutes Hayley Phipps [facility] Urgent Care Cost Start: 04-27-2021 End: 04-30-2021 Evaluation and management of inpatient RONAN ZAPATA [facility] Start: 04-27-2021 End: 04-30-2021 Evaluation and management of inpatient Ronan Zapata CONDUCTOR AND ENGINEER - CN Work Phone: [facility] Labor and Delivery Start: 10-08-2018 Patient encounter procedure Merlin Sainz Facility:[id number] Start: 05-26-2018 Patient encounter procedure Tatyana Baptiste Facility:[id number] Start: 03-05-2018 Patient encounter procedure Merlin Sainz Facility:[id number] Start: 02-18-2018 Patient encounter procedure Sonia Melo Facility:[id number] Start: 01-03-2018 Patient encounter procedure Tatyana Baptiste Facility:[id number] Start: 10-12-2017 End: 10-13-2017 Ambulatory DOCTOR MISC Facility:[id number] Start: 06-19-2017 End: 06-20-2017 Ambulatory DOCTOR MISC Facility:[id number] Procedures Date Procedure Procedure Detail Performing Clinician Start: 03-25-2024 ULTRASOUND OFFICE Not I n System Ref Prov Start: 01-10-2024 CHLAMYDIA/GC BY PCR FABI SWAB Not In System Ref Prov Start: 01-10-2024 Drug scrn 1+ class nonchromo Not In System Ref Prov Start: 01-10-2024 Culture bacterial quanttative colony count urine Ronan Zapata CNM Work Phone: Start: 01-10-2024 DRUG TOX MONITORIGN 6 W/ CONF,URINE Ronan Zapata CNM Work Phone: Start: 01-10-2024 URINALYSIS MICROSCOPIC Ronan Zapata CNM Work Phone: Start: 01-09-2024 TSH W/REFLEX TO FT4 Gal cammie Zapata CN Work Phone: Start: 01-09-2024 Antibody screen Mariia Magallanes MD Work Phone: Start: 01-09-2024 End: 01-09-2024 Hemoglobin glycosylated a1c Scanning Provider External Start: 01-09-2024 HIV 1&2 AB/AG SCREEN (P24 AG) Not In System Ref Prov Start: 01-09-2024 End: 01-09-2024 Iaad ia hepatitis b surface antigen Not In System Ref Prov Start: 01-09-2024 End: 01-09-2024 Syphilis test non-treponemal antibody qual Not In System Ref Prov Start: 01-09-2024 TYPE AND SCREEN Not In System Ref Prov Start: 01-09-2024 ULTRASOUND OFFICE Not I n System Ref Prov Start: 04-27-2021 Blood count complete auto&auto difrntl wbc Ronan Zapata CONDUCTOR AND ENGINEER - CNM Work Phone: Start: 04-27-2021 Drug screen class list a Ronan Zapaat CONDUCTOR AND ENGINEER - CNM Work Phone: Start: 04-06-2021 Antibody chlamydia Hist orical Provider Start: 04-06-2021 Chlamydia culture Amada Zapata CONDUCTOR AND ENGINEER - CNM Work Phone: Start: 04-06-2021 GBS, EXTERNAL RESULT Hi storical Provider Start: 10-05-2020 Antibody hiv-1&hiv-2 single result Historical Provider Start: 10-05-2020 Antibody screen Ronan Zapata APRN - KRISTIN Work Phone: Start: 10-05-2020 Iaadiadoo neisseria gonorrhoeae Historical Provider Start: 05-26-2018 Follow-up visit Start: 03-05-2018 Follow-up visit Start: 02-18-2018 Follow-up visit Plan of Treatment Date Care Activity Detail Author Start: 01-24-2031 DTaP,Tdap and Td Vaccines (8 - Td or Tdap) DTaP,Tdap and Td Vaccines (8 - Td or Tdap) [facility] Start: 01-24-2031 DTaP/Tdap/Td vaccine (8 - Td or Tdap) DTaP/Tdap/Td vaccine (8 - Td or Tdap) [facility] Start: 04-02-2025 Tobacco Screening Tobacco Screening [facility] Start: 01-09-2025 Screening for Chlamy marcel trachomatis Chlamydia Screening [facility] Start: 07-20-2024 End: 07-20-2024 Patient encounter procedure 07/20/2024 4:30 PM EST Routine [facility] [address] [place] [phone] Ronan Zapata CNM [address] [place] [address] [facility] Start: 07-06-2024 End: 07-06-2024 Patient encounter procedure 07/06/2024 2:30 PM EST Routine [facility] [address] [place] [phone] Ronan Zapata CNM [address] [place] [address] [facility] Start: 06-22-2024 End: 06-22-2024 Patient encounter procedure 06/22/2024 2:00 PM EST Routine [facility] [address] [place] [id number] Ronan Zapata, [place] [address] [place] [address] [facility] Start: 06-04-2024 End: 06-04-2024 ambulatory 06/04/2024 3:00 PM EST Initial [facility] [address] [place] [phone] Ronan Zapata, CNM [address] [place] [address] [facility] Start: 06-04-2024 End: 06-04-2024 Patient encounter procedure 06/04/2024 3:00 PM EST Routine [facility] [address] [place] [phone] Ronan Zapata, CN [address] [place] [address] [facility] Start: 06-04-2024 End: 06-04-2025 GLUCOSE TOLERANCE TEST, GESTATIONAL,4SPEC(100G) GLUCOSE TOLERANCE TEST, GESTATIONAL,4SPEC(100G) Lab Routine Elevated glucose tolerance test Expected: 06/04/2024 (Approximate), Expires: 06/04/2025 [facility] Work Phone: Comment on above: Expected: 06/04/2024 (Approximate), Expires: 06/04/2025 Start: 05-07-2024 End: 05-07-2025 CBC panel - Blood by Automated count CBC Lab Routine Screening for iron deficiency anemia Expected: 05/07/2024 (Approximate), Expires: 05/07/2025 [facility] Comment on above: Expected: 05/07/2024 (Approximate), Expires: 05/07/2025 Start: 05-07-2024 End: 05-07-2025 GLUCOSE, GESTATIONAL SCREEN (50G)-135 CUTOFF GLUCOSE, GESTATIONAL SCREEN (50G)-135 CUTOFF Lab Routine Screening for diabetes mellitus Expected: 05/07/2024 (Approximate), Expires: 05/07/2025 [facility] Work Phone: Comment on above: Expected: 05/07/2024 (Approximate), Expires: 05/07/2025 Start: 05-07-2024 End: 05-07-2025 US for US OB follow up transabdominal approach Imaging Routine related condition in third trimester Expected: 05/07/2024, Expires: 05/07/2025 [facility] Comment on above: Expected: 05/07/2024 , Expires: 05/07/2025 Start: 05-04-2024 End: 05-04-2024 Patient encounter procedure 05/04/2024 2:30 PM EST Routine [facility] [address] [place] [address] Ronan Zapata, CNM [address] [place], [place] [id number] [facility] Start: 04-06-2024 End: 04-06-2024 Patient encounter procedure [facility] Comment on above: Arrived Start: 04-02-2024 End: 04-02-2024 Patient encounter procedure 04/02/2024 1:30 PM EDT Office Visit [facility] [place] [address] [place] [phone] Mariia Magallanes MD [address] [place] [address] [facility] [place] Start: 04-02-2024 End: 04-02-2024 Patient encounter procedure 04/02/2024 11:30 AM EDT Appointment [facility] [address] [place] [address] [facility] Start: 03-23-2024 End: 03-23-2024 Professional / ancillary services management 03/23/2024 2:15 PM EDT Ancillary Procedure [facility] [address] [facility] [address] [place] [address] [facility] Start: 03-09-2024 End: 03-09-2024 Patient encounter procedure [facility] Comment on above: Arrived Start: 03-09-2024 End: 03-09-2025 US for US OB 14+ weeks anatomy scan Imaging Routine related condition in second trimester Expected: 03/09/2024, Expires: 03/09/2025 [facility] Work Phone: Comment on above: Expected: 03/09/2024 , Expires: 03/09/2025 Start: 02-19-2024 End: 02-19-2024 Patient encounter procedure 02/19/2024 9:00 AM EDT Procedure Visit [facility] [address] [place] [address] Ronan Zapata, CNM [address] [place] [address] [facility] Start: 02-16-2024 Influenza vaccination [facility] Start: 02-06-2024 End: 02-06-2024 Patient encounter procedure 02/06/2024 4:00 PM EDT Routine [facility] [address] [place] [address] Ronan Zapata, CNM [address] [place] [address] [facility] Start: 04-06-2022 Screening for Chlamy marcel trachomatis Chlamydia screen [facility] Start: 2021 Screening for malign ant neoplasm of cervix Pap Smear [facility] [employer] [facility] Start: 02-15-2021 Influenza vaccination Flu vaccine (# 1) [facility] Start: 10-26-2019 DTaP,Tdap and Td Vaccines (1 - Tdap) DTaP,Tdap and Td Vaccines (1 - Tdap) [facility] [employer] [facility] Start: 2018 Adult BMI Screening Adult BMI Screen ing [facility] [employer] [facility] Start: 05-11-2013 Depression Screening Depression Scre ening [facility] Start: 2012 Tobacco Screening Tobacco Screening [facility] Start: 10-26-2011 HPV vaccine (1 - 2-d ose series) HPV vaccine (1 - 2-dose series) [facility] Start: 2000 Hepatitis C screening Hepatitis C sc reen [facility] Start: 2000 Screening for Chlamy marcel trachomatis Chlamydia Screening [facility] Immunizations Immunization Date Immunization Notes Care Provider Fa cility 04-04-2023 influenza virus vaccine, unspecified formulation [employer] Work Phone: [facility] 04-28-2021 diphtheria, tetanus toxoids and acellular pertussis vaccine, unspecified formulation [employer] CONDUCTOR AND ENGINEER - CN Work Phone: [employer] Work Phone: 04-28-2021 measles, mumps and rubella virus vaccine [employer] CONDUCTOR AND ENGINEER - CN Work Phone: [employer] Work Phone: Payers Date Payer Category Payer Private Health Insurance [employer] [id number] 2022 Unknown FRONTPATH FRONTP ATH [id number] 2022-Present [phone] [place], [place] [address] [address] [id number] 2021 Unknown [id number] [id number]. [id number] 2020 Unknown [id number] 2000 Unknown [id number] 2.16.840.1.446245.3.579.2. 173 2000 Unknown [id number] 2.16.840.1.182425.3.579.2. 1285 2000 Unknown [id number] 2.16.840.1.703351.3.579.2. 1285 2000 Unknown [id number] 2.16.840.1.345308.3.579.2. 1258 2000 Unknown [id number] 2.16.840.1.349980.3.579.2. 1258 2000 Unknown [id number] 2.16.840.1.191194.3.579.2. 1258 2000 Unknown [id number] 2.16.840.1.828213.3.579.2. 1258 2000 Unknown [id number] 2.16.840.1.723958.3.579.2. 1258 2000 Unknown [id number] 2.16.840.1.397368.3.579.2. 1258 2000 Unknown [id number] 2.16.840.1.503532.3.579.2. 1258 2000 Unknown [id number] 2.16.840.1.093801.3.579.2. 1258 2000 Unknown [id number] 2.16.840.1.313293.3.579.2. 1258 2000 Unknown [id number] 2.16.840.1.560626.3.579.2. 1258 2000 Unknown [id number] 2.16.840.1.201379.3.579.2. 1258 1959 Unknown [id number] [employer] Other (unspecified) [id number]. 7.9.229486.529.315 Unknown [id number] 2.16.840.1.464118.3.579.2. 356 Unknown [id number] 2.16.840.1.351590.3.579.2. 356 Unknown [id number] 2.16.840.1.564701.3.579.2. 356 Unknown [id number] Unknown [id number] Unknown [id number] Unknown [id number] Social History Date Type Detail Facility Start: 04-27-2021 End: 05-28-2023 Tobacco smoking status NHIS Never smoked tobacco [facility] Phone: Start: 04-28-2021 Alcohol intake Lifetime non-d trish (finding) [facility] Phone: Start: 04-27-2021 History SDOH Alcohol Frequency 1 [facility] Phone: Start: 2000 Sex Assigned At Not on file [facility] Phone: Exposure to SARS-CoV-2 (event) Not sure [facility] Phone: Start: 01-09-2024 End: 04-01-2024 Sex Assigned At [facility] Other Tobacco smoking status KYIS Tobacco smoking consumption unknown [facility] Start: 11-21-2023 [facility] Start: 05-28-2023 End: 04-01-2024 Tobacco use and exposure Smokeless tobacco non-user [facility] Start: 01-09-2024 End: 04-01-2024 Alcoholic beverage intake Ex-drinker (finding) [facility] Start: 01-09-2024 End: 04-01-2024 History of Social function [facility] Start: 03-27-2024 Sex Female (finding) [facility] Start: 05-28-2023 Alcohol Comment caffeine: none [facility] Start: 06-18-2023 Gender identity Identifies as female gender (finding) [facility] Within the past 12 months we worried whether our food would run out before we got money to buy more. Never True [facility] Clinical Notes 04-29-2021 to 07-13-2024 Telephone Encounter - Rachel Raines MA - 07/13/2024 3:09 PM ESTTelephone Encounter - Rachel Raines MA - 07/13/2024 3:09 PM ESTTelephone Encounter - Amber Pace - 07/13/2024 3:02 PM EST Note Date & Type Note Facility 07-13-2024 Telephone encount er Note Spoke with pt [facility] 07-13-2024 Miscellaneous Notes Formattin g of this note might be different from the original. Spoke with pt Hi, my name is Prerna Cronin. I am calling to talk to [employer] office. If you can give me a call back at [phone]. Thanks. documented in this encounter [facility] 07-13-2024 Telephone encount er Note Hi, my name is Prerna Cronin. I am calling to talk to [employer] office. If you can give me a call back at [phone]. Thanks. [facility] 07-06-2024 History of Presen t illness Narrative Subjective No chief complaint on file. Mel Cronin is a 23 y.o. at 34w4d with a working estimated date of delivery of 08/13/2024, by Last Menstrual Period who presents for a routine visit. She denies vaginal bleeding, leakage of fluid, decreased movements, or contractions. OB History Para Term AB Living 2 1 1 SAB IAB Ectopic Multiple Live Births # Outcome Date GA Lbr Shoaib/2nd Weight Sex Type Anes PTL Lv 2 Current 1 Para 04/28/21 Vag-Spont Her is complicated by: Objective Physical Exam weight: 173 lb Expected Total Weight Gain: 15 lb-25 lb Pregravid BMI: 25.51 BP: 110/70 Urine protein-negative Urine glucose-negative Assessment/Plan Diagnoses and all orders for this visit: Encounter for supervision of other normal , third trimester Large for dates Continue vitamin. Labs reviewed. GBS at 36 weeks Expected mode of delivery Follow up in 1 week for a routine visit. documented in this encounter [facility] 06-22-2024 History of Presen t illness Narrative Subjective No chief complaint on file. Mel Cronin is a 23 y.o. at 32w4d with a working estimated date of delivery of 08/13/2024, by Last Menstrual Period who presents for a routine visit. She denies vaginal bleeding, leakage of fluid, decreased movements, or contractions. OB History Para Term AB Living 2 1 1 SAB IAB Ectopic Multiple Live Births # Outcome Date GA Lbr Shoaib/2nd Weight Sex Type Anes PTL Lv 2 Current 1 Para 04/28/21 Vag-Spont Her is complicated by: Objective Physical Exam weight: 170 lb Expected Total Weight Gain: 15 lb-25 lb Pregravid BMI: 25.51 Urine protein-negative Urine glucose-negative Assessment/Plan Diagnoses and all orders for this visit: Encounter for supervision of other normal , third trimester Other cough Patient states she does not feel sick, she just has a dry cough since Saturday and she hasn't been around anyone who has been sick. I did advise her she can take Robitussin, allergy tabs- Claritin if she has runny nose and sinus drainage, tylenol cold, cough and flu products. PVU Continue vitamin. Labs reviewed. GBS taken. Expected mode of delivery Follow up in 1 week for a routine visit. documented in this encounter [facility] 06-04-2024 History of Presen t illness Narrative Subjective No chief complaint on file. Mel Cronin is a 23 y.o. at 30w0d with a working estimated date of delivery of 08/13/2024, by Last Menstrual Period who presents for a routine visit. She denies vaginal bleeding, leakage of fluid, decreased movements, or contractions. OB History Para Term AB Living 2 1 1 SAB IAB Ectopic Multiple Live Births # Outcome Date GA Lbr Shoaib/2nd Weight Sex Type Anes PTL Lv 2 Current 1 Para 04/28/21 Vag-Spont Her is complicated by: saw M early for rule out anasarca and hydrops. Normal per [facility] Objective Physical Exam weight: 166 lb Expected Total Weight Gain: 15 lb-25 lb Pregravid BMI: 25.51 BP: 110/70 Urine protein-negative Urine glucose-negative Assessment/Plan Diagnoses and all orders for this visit: Encounter for supervision of other normal , second trimester Encounter for supervision of other normal , third trimester Elevated glucose tolerance test - GLUCOSE TOLERANCE TEST, GESTATIONAL,4SPEC(100G); Future Continue vitamin. Labs reviewed. GBS at 36 weeks Expected mode of delivery Follow up in 2 weeks for a routine visit. documented in this encounter [facility] 05-29-2024 Telephone encount er Note Pt would like a callback concerning moving up her appointment to an earlier time. Please return her call. She is scheduled for at 3pm [facility] 05-29-2024 Miscellaneous Notes Formattin g of this note might be different from the original. Pt would like a callback concerning moving up her appointment to an earlier time. Please return her call. She is scheduled for at 3pm documented in this encounter [facility] 05-07-2024 History of Presen t illness Narrative Subjective No chief complaint on file. Mel Cronin is a 23 y.o. at 26w0d with a working estimated date of delivery of 08/13/2024, by Last Menstrual Period who presents for a routine visit. She denies vaginal bleeding, leakage of fluid, decreased movements, or contractions. OB History Para Term AB Living 2 1 1 SAB IAB Ectopic Multiple Live Births # Outcome Date GA Lbr Shoaib/2nd Weight Sex Type Anes PTL Lv 2 Current 1 Para 04/28/21 Vag-Spont Her is complicated by: The following portions of the chart were reviewed this encounter and updated as appropriate: Objective Physical Exam weight: 162 lb Expected Total Weight Gain: 15 lb-25 lb Pregravid BMI: 25.51 BP: 120/70 Urine protein-negative Urine glucose-negative Labs: reviewed Imaging Assessment/Plan Continue vitamin. Labs reviewed. Rhogam GTT . Follow up in 2 weeks for a routine visit. documented in this encounter [facility] 04-06-2024 History of Presen t illness Narrative Subjective No chief complaint on file. Mel Cronin is a 23 y.o. at 21w4d with a working estimated date of delivery of 08/13/2024, by Last Menstrual Period who presents for a routine visit. She denies vaginal bleeding, leakage of fluid, decreased movements, or contractions. OB History Para Term AB Living 2 1 1 SAB IAB Ectopic Multiple Live Births # Outcome Date GA Lbr Shoaib/2nd Weight Sex Type Anes PTL Lv 2 Current 1 Para 04/28/21 Vag-Spont Her is complicated by: questionable anomalies from 20 week US . Went to [facility] and received normal report. Ruled out anasarca and hydrops. Normal report from [facility] Yusef reviewed with patient and she states they told her everything was perfect at her appointment The following portions of the chart were reviewed this encounter and updated as appropriate: Objective Physical Exam weight: 151 lb Expected Total Weight Gain: 15 lb-25 lb Pregravid BMI: 25.51 BP: 112/70 Urine protein-negative Urine glucose-negative Labs: reviewed Imaging Assessment/Plan Diagnoses and all orders for this visit: Encounter for supervision of other normal , second trimester Continue vitamin. Labs reviewed. Rhogam GTT at 28 weeks Follow up in 4 weeks for a routine visit. documented in this encounter [facility] 04-02-2024 History of Presen t illness Narrative Headache/epigastric pain/blurry vision/swelling? no Cramping/contractions? no Abnormal vaginal discharge? no Spotting/vaginal bleeding? no Loss or gush of fluid like your water may have broken? no Do you have cats at home? no Do you change the litter box (reason: risk of toxoplasmosis)? N/a Genetic testing done this here or other office? no Have you been seen here at [facility] in a previous ? no Recent ER visits or hospitalizations? no Bring blood sugar log or meter with you today? (Please bring them with you for every visit at [facility]) n/a Flu vaccine (Apr-August)? no Any concerns that you would like me to mention to the provider today? no REASON FOR CONSULTATION: Suspected anomaly ruled. HISTORY OF PRESENT ILLNESS: Mel Cronin is a pleasant 23 y.o. G to P1 001. at 21w0d due on Estimated Date of Delivery: 08/13/24 . Patient was seen today due to the following 1. Suspected anomaly ruled out. Patient had a ultrasound done at her local hospital with was suspicious for hydrops which was ruled out on today's ultrasound. Normal targeted anatomy was seen on today's ultrasound. No evidence of hydrops. Currently the patient has no complaints. The patient denies nausea, vomiting, abdominal pain, vaginal bleeding, SOB or chest pain. Patient's PMH/PSH,SH,PSYCH Hx, MEDs, ALLERGIES, and ROS were all reviewed and updated in the appropriate sections. Patient Active Problem List Diagnosis Encounter for suspected anomaly ruled out History reviewed. No pertinent past medical history. PAST OBSTETRICAL HISTORY: OB History 2 Para 1 Term 1 AB Living 1 SAB IAB Ectopic Multiple Live Births 1 SURGICAL HISTORY: Past Surgical History: Procedure Laterality Date TONSILLECTOMY WISDOM TOOTH EXTRACTION ALLERGIES: No Known Allergies CURRENT MEDICATIONS: Current Outpatient Medications: [id number] ( 19) 29 mg iron- 1 mg tablet,chewable, Chew 1 tablet and swallow in the morning., Disp: , Rfl: FAMILY/GENETIC HISTORY: No family history of VTE, cardiac defects and mental retardation . SOCIAL HISTORY:Patient denies tobacco use, alcohol use, or drug use. RECENT HOSPITALIZATION: none I did review all the labs results available in addition to labs which were ordered by the primary care physician, and the other consultants, we search on [employer] and all the available care everywhere epic I did review all the imaging studies of the patient available on EMR, ordered by the primary care physician and the other construction consultant HABITS: Patient activity no restrictions, diet no restrictions REVIEW OF SYSTEM: Head and Neck: Negative for any dizziness and headaches. Cardiovascular and Respiratory System: Denies any chest pain, shortness of breath, and coughing. Abdominal and System: Denies any abdominal pain, nausea, vomiting, vaginal bleeding, and vaginal discharge PHYSICAL EXAMINATION: BP 107/72 (BP Site: Right Arm, BP Postition: Sitting, BP CUFF SIZE: M (9-13 inches)) Pulse 80 Wt 67.7 kg (149 lb 3.2 oz) LMP 11/07/2023 (Exact Date) . Gravid abdomen, Respirations not labored. Well oriented time place person, normal gait RECOMMENDATION: 1. No evidence of hydrops. 2. Normal targeted anatomy seen on today's ultrasound. 3. Routine care at OB provider. 4. Term spontaneous vaginal delivery at local hospital is anticipated with C section reserve routine indications. DISPOSITION: At this point the patient is in complete care of her chief counsel. Patient does not have any future appointment scheduled with us. Thank you for allowing me to participate in Mel Cronin . If there any questions please do not hesitate to contact us. Sincerely, MARIIA MAGALLANES MD documented in this encounter [facility] 04-01-2024 Telephone encount er Note Call Allen w feteal med. She needs any test and stress-test faxed over - she may have an Amnio tomorrow - Call Allen at [phone] [facility] 04-01-2024 Miscellaneous Notes Formattin g of this note might be different from the original. Call Allen w feteal med. She needs any test and stress-test faxed over - she may have an Amnio tomorrow - Call Allen at [phone] documented in this encounter [facility] 03-09-2024 History of Presen t illness Narrative Subjective No chief complaint on file. Mel Cronin is a 23 y.o. at 17w4d with a working estimated date of delivery of 08/13/2024, by Last Menstrual Period who presents for a routine visit. She denies vaginal bleeding, leakage of fluid, decreased movements, or contractions. OB History Para Term AB Living 2 1 1 SAB IAB Ectopic Multiple Live Births # Outcome Date GA Lbr Shoaib/2nd Weight Sex Type Anes PTL Lv 2 Current 1 Para 04/28/21 Vag-Spont Her is complicated by: history of large baby last - 9# 3 oz The following portions of the chart were reviewed this encounter and updated as appropriate: Objective Physical Exam weight: 149 lb Expected Total Weight Gain: 15 lb-25 lb Pregravid BMI: 25.51 BP: 110/70 Urine protein-negative Urine glucose-negative Labs: reviewed Imaging Assessment/Plan Diagnoses and all orders for this visit: Encounter for supervision of other normal , second trimester related condition in second trimester - US OB 14+ weeks anatomy scan; Future High risk HPV infection Continue vitamin. Labs reviewed. Rhogam not needed, patient is A+ positive GTT at 28 weeks Follow up in 2 weeks for a routine visit. documented in this encounter [facility] 02-10-2024 History of Presen t illness Narrative Subjective No chief complaint on file. Mel Cronin is a 23 y.o. at 13w4d with a working estimated date of delivery of 08/13/2024, by Last Menstrual Period who presents for a routine visit. She denies vaginal bleeding, leakage of fluid, decreased movements, or contractions. OB History Para Term AB Living 2 1 1 SAB IAB Ectopic Multiple Live Births # Outcome Date GA Lbr Shoaib/2nd Weight Sex Type Anes PTL Lv 2 Current 1 Para 04/28/21 Vag-Spont Her is complicated by: The following portions of the chart were reviewed this encounter and updated as appropriate: Objective Physical Exam weight: 147 lb Expected Total Weight Gain: 15 lb-25 lb Pregravid BMI: 25.51 BP: 112/70 Urine protein-negative Urine glucose-negative Labs: reviewed Imaging Assessment/Plan Diagnoses and all orders for this visit: Encounter for supervision of other normal , second trimester Encounter for supervision of other normal , first trimester - Ambulatory referral to Obstetrics / Gynecology Continue vitamin. Labs reviewed. Rhogam not needed, A+ positive blood type GTT . Follow up in 2 weeks for a routine visit. documented in this encounter [facility] 01-09-2024 History of Presen t illness Narrative Subjective Mel Cronin is a 23 y.o. at 12w5d with a working estimated date of delivery of 08/13/2024, by Last Menstrual Period who presents for an initial visit. This is planned. Patient Care Team: Dian Cohen MD as PCP - General (Family Medicine) OB History Para Term AB Living 2 1 1 SAB IAB Ectopic Multiple Live Births # Outcome Date GA Lbr Shoaib/2nd Weight Sex Type Anes PTL Lv 2 Current 1 Para 04/28/21 Vag-Spont Her is complicated by: Patient referred by Gynecology History Last Pap 06/18/23 The following portions of the chart were reviewed this encounter and updated as appropriate: Review of Systems Objective Physical Exam weight: 144 lb Expected Total Weight Gain: 15 lb-25 lb Pregravid BMI: 25.51 Urine protein Urine glucose Labs Assessment/Plan Diagnoses and all orders for this visit: Encounter for supervision of other normal , first trimester - Hepatitis B surface antigen - Rubella antibody, IgG - CBC - Antibody screen - RPR - Hemoglobin A1c - TSH W/REFLEX TO FT4; Future - HIV-1 and HIV-2 antibodies - ABO/Rh - DRUG TOX MONITORIGN 6 W/ CONF,URINE; Future - Hepatitis C antibody - Urine culture; Future - URINALYSIS MICROSCOPIC; Future - C. trachomatis / N. gonorrhoeae, DNA probe; Future - Ambulatory referral to Obstetrics / Gynecology; Future Blue education folder given. Patient educated on safe medication list. Genetic testing information given. Discussed the do's and don'ts in the blue folder. We discussed labs and what we draw and what we are testing for. Patient is also informed that we do a urine drug test. Patient also given office phone number and [facility] number to call in case of an emergency or after hours needs. PVU and all questions answered. We did discuss place of delivery. Patient should plan to go to [facility] for all services unless an emergency and they need to go to the closest ER. We can make other arrangements possibly if patient would like to deliver at another facility but I did explain I am now at [facility] 100% of the time and would like to do all deliveries there. documented in this encounter [facility] 07-13-2022 Evaluation note Encounter Date Diagnosis Assessment Notes Jun, Contact with and (suspected) exposure to other viral communicable diseases (ICD-10 - Z20.828) Jun, Right acute otitis media (ICD-10 - H66.91) Ear infections are often a secondary infection caused from an URI, the flu or allergies. Take medication as directed. Complete all doses, even if you feel better. Tylenol or ibuprofen can help with pain. Warm pack to area for comfort helps as well. Follow up with primary care provider if no improvement of symptoms. Jun, Viral URI (ICD-10 - J06.9) Symptoms appear viral today. Bacteria infections take several days to weeks of symptoms to develop. Use saline nasal spray before prescription one and you have better results. Recommend OTC medications such as Mucinex DM, Delsym, Cepocal Lozenges Continue tylenol/ibuprof en for general discomfort. Encourage fluids. Symptoms should improve within the next 10-14 days. If no improvement of symptoms in 14 days call primary care provider to discuss antibiotic therapy [email or web address] Other 11-14-2021 Hospital course Narrative* CARMEN Maria CNM - 04/30/2021 10:35 AM EST Obstetrical Discharge Form Gestational Age:40w0d Antepartum complications: none Date of Delivery: 04/28/21 Type of Delivery: Delivered By: Romie Zapata APRN, CNM Assisted By:none} Baby: female Anesthesia: epidural Intrapartum complications: None Feeding method: breast Blood type: A positive Rubella: Rubella Antibody, IGG Date Value Ref Range Status 10/05/2020 positive Final T. Pallidium, IGG: T. pallidum, IgG Date Value Ref Range Status 10/05/2020 NR Final Hepatitis B Surface Antigen: Hepatitis B Surface Ag Date Value Ref Range Status 10/05/2020 negative Final HIV: No results found for: [id number] Results for orders placed or performed during the hospital encounter of 04/27/21 N. GONORRHOEAE CULTURE Result Value Ref Range Culture, Gonorrhoeae negative Chlamydia Culture Result Value Ref Range CHLAMYDIA CULTURE negative GBS, External Result Result Value Ref Range GBS, External Result negative DRUG SCREEN MULTI URINE Result Value Ref Range Amphetamine Screen, Ur NEGATIVE NEGATIVE Barbiturate Screen, Ur NEGATIVE NEGATIVE Benzodiazepine Screen, Urine NEGATIVE NEGATIVE Cocaine Metabolite, Urine NEGATIVE NEGATIVE Methadone Screen, Urine NEGATIVE NEGATIVE Opiates, Urine NEGATIVE NEGATIVE Phencyclidine, Urine NEGATIVE NEGATIVE Propoxyphene, Urine NEGATIVE NEGATIVE Cannabinoid Scrn, Ur NEGATIVE NEGATIVE Oxycodone Screen, Ur NEGATIVE NEGATIVE Methamphetamine, Urine NEGATIVE NEGATIVE Tricyclic Antidepressants, Urine NEGATIVE NEGATIVE MDMA, Urine NOT REPORTED NEGATIVE Buprenorphine Urine NEGATIVE NEGATIVE Test Information NOT REPORTED CBC auto differential Result Value Ref Range WBC 9.3 4.5 - 13.5 k/uL RBC 4.35 3.95 - 5.11 m/uL Hemoglobin 12.2 11.9 - 15.1 g/dL Hematocrit 37.1 36.3 - 47.1 % MCV 85.3 82.6 - 102.9 fL MCH 28.0 25.2 - 33.5 pg MCHC 32.9 28.4 - 34.8 g/dL RDW 15.6 (H) 11.8 - 14.4 % Platelets 286 138 - 453 k/uL MPV 9.9 8.1 - 13.5 fL NRBC Automated 0.0 0.0 per 100 WBC Differential Type NOT REPORTED Seg Neutrophils 71 (H) 34 - 64 % Lymphocytes 20 (L) 25 - 45 % Monocytes 8 2 - 8 % Eosinophils % 0 (L) 1 - 4 % Basophils 0 0 - 2 % Immature Granulocytes 1 (H) 0 % Segs Absolute 6.57 1.80 - 8.00 k/uL Absolute Lymph # 1.90 1.20 - 5.20 k/uL Absolute [place] # 0.75 0.10 - 1.40 k/uL Absolute Eos # 0.04 0.00 - 0.44 k/uL Basophils Absolute <0.03 0.00 - 0.20 k/uL Absolute Immature Granulocyte 0.06 0.00 - 0.30 k/uL WBC Morphology NOT REPORTED RBC Morphology NOT REPORTED Platelet Estimate NOT REPORTED PROFILE I Result Value Ref Range Rubella Antibody, IGG positive Hepatitis B Surface Ag negative Antibody Screen negative ABO/Rh A positive T. pallidum, IgG NR HIV Screen Result Value Ref Range HIV Ag/Ab NR complications: none Discharge Medication: Medication List CONTINUE taking these medications ferrous sulfate 325 (65 Fe) MG tablet Commonly known as: IRON 325 Notes to patient: Take tonight Admit date: 04/27/2021 8:04 PM Discharge Date: 04/30/2021 Discharged to: Home in stable condition Plan: Follow up 2 and 6 weeks documented in this [facility] [employer] Work Phone: [phone]) 143-809711-14-2021 History of Present illness Narrative* CARMEN Maria CNM - 04/30/2021 10:34 AM EST Department of Obstetrics and Gynecology Labor and Delivery Post Progress Note SUBJECTIVE: 2nd day , denies c/o, desires discharge OBJECTIVE: Vitals: BP 111/71 Pulse 79 Temp 98.1 F (36.7 C) (Oral) Resp 16 Ht 5' 3 (1.6 m) Wt 153 lb (69.4 kg) SpO2 98% Unknown BMI 27.10 kg/m Patient Vitals for the past 24 hrs: BP Temp Temp src Pulse Resp 04/30/21 0830 111/71 98.1 F (36.7 C) Oral 79 16 04/30/21 0041 (!) 116/56 97.8 F (36.6 C) Oral 63 19 04/29/212020 103/67 97.5 F (36.4 C) Axillary 78 19 04/29/21 1642 110/72 97.9 F (36.6 C) Tympanic 72 18 04/29/21 1317 104/61 98.4 F (36.9 C) Oral 72 16 ABDOMEN: normal shape, position and consistency GENITAL/URINARY: External Genitalia: General appearance; normal, Hair distribution; normal, Lesionsabsent Uterus: Size normal, Tenderness absent Breast:normal appearance, no masses or tenderness Cor: RRR no Murmurs Pulmonary: clear to auscultation anterior and posterior Extremities: no Clubbing cyanosis or ecchymosis DATA: CBC: Lab Results Component Value Date WBC 9.3 04/27/2021 RBC 4.35 04/27/2021 HGB 12.2 04/27/2021 HCT 37.1 04/27/2021 MCV 85.3 04/27/2021 MCH 28.0 04/27/2021 MCHC 32.9 04/27/2021 RDW 15.6 04/27/2021 PLT 286 04/27/2021 MPV 9.9 04/27/2021 ASSESSMENT : Active Problems: Normal delivery Plan: D/c home, rto 2 and 6 weeks , routine instructions * Mari Suero RN - 04/29/2021 1:30 PM EST Pt has decided she would like to stay tonight and go home tomorrow. Thee Dejesus CNM in unit and made aware. Discharge order discontinued via verbal order. * Zayda Dejesus, CARMEN - KRISTIN - 04/29/2021 6:51 AM EST Department of Obstetrics and Gynecology Labor and Delivery Post Progress Note SUBJECTIVE: 1st day , s/p , denies c/o OBJECTIVE: Vitals: BP 112/68 Pulse 82 Temp 98.6 F (37 C) Resp 16 Ht 5' 3 (1.6 m) Wt 153 lb (69.4 kg) [id number]% Unknown BMI 27.10 kg/m Patient Vitals for the past 24 hrs: BP Temp Temp src Pulse Resp SpO2 04/29/21 0028 112/68 98.6 F (37 C) 82 16 04/28/21 1958 138/73 98.5 F (36.9 C) Oral 67 14 04/28/21 1733 121/76 97.4 F (36.3 C) Temporal 70 16 04/28/21 1444 121/82 77 18 04/28/21 1428 119/73 70 18 04/28/21 1358 113/61 68 04/28/21 1357 113/61 68 16 04/28/21 1328 136/77 75 16 04/28/21 1313 (!) 143/79 97.9 F (36.6 C) Oral 68 16 04/28/21 1258 (!) 147/89 71 16 04/28/21 1242 134/69 70 18 04/28/21 1228 132/70 70 04/28/21 1227 132/70 70 16 04/28/21 1215 (!) 126/58 81 04/28/21 1214 (!) 126/58 81 04/28/21 1147 115/61 81 04/28/21 1146 115/61 81 04/28/21 1117 (!) 107/56 66 11/12/21 1047 122/66 69 11/12/21 1036 97.9 F (36.6 C) Oral 11/12/21 1025 98 % 11/12/21 1020 98 % 11/12/21 1018 71 11/12/21 1017 (!) 86 % 11/12/21 1015 105/61 16 94 % 11/12/21 1010 93 % 11/12/21 1005 93 % 11/12/21 1000 93 % 11/12/21 0955 93 % 11/12/21 0950 94 % 11/12/21 0946 112/67 67 11/12/21 0945 94 % 11/12/21 0940 95 % 11/12/21 0935 95 % 11/12/21 0930 95 % 11/12/21 0929 95 % 11/12/21 0925 94 % 11/12/21 0920 92 % 11/12/21 0915 110/70 72 18 94 % 11/12/21 0910 93 % 11/12/21 0905 93 % 11/12/21 0900 93 % 11/12/21 0855 94 % 11/12/21 0850 97 % 11/12/21 0847 73 11/12/21 0845 118/71 97 % 11/12/21 0840 97 % 11/12/21 0835 97 % 11/12/21 0830 97 % 11/12/21 0829 97 % 11/12/21 0825 97 % 11/12/21 0820 98 % 11/12/21 0816 (!) 111/59 63 16 11/12/21 0815 97 % 11/12/21 0810 97 % 11/12/21 0805 97 % 11/12/21 0800 97 % 11/12/21 0755 98 % 11/12/21 0750 98 % 11/12/21 0745 99 % 11/12/21 0740 98 % 11/12/21 0735 98/61 75 98 % 11/12/21 0730 97 % 11/12/21 0725 97 % 11/12/21 0721 104/68 98.1 F (36.7 C) Oral 92 16 99 % 11/12/21 0720 98 % 11/12/21 0715 99 % 11/12/21 0702 108/71 99 % 11/12/21 0700 99 % 04/28/21 0655 99 % ABDOMEN: normal shape, position and consistency GENITAL/URINARY: External Genitalia: General appearance; normal, Hair distribution; normal, Lesionsabsent Uterus: Size normal, Tenderness absent Breast:normal appearance, no masses or tenderness Cor: RRR no Murmurs Pulmonary: clear to auscultation anterior and posterior Extremities: no Clubbing cyanosis or ecchymosis DATA: CBC: Lab Results Component Value Date WBC 9.3 04/27/2021 RBC 4.35 04/27/2021 HGB 12.2 04/27/2021 HCT 37.1 04/27/2021 MCV 85.3 04/27/2021 MCH 28.0 04/27/2021 MCHC 32.9 04/27/2021 RDW 15.6 04/27/2021 PLT 286 04/27/2021 MPV 9.9 04/27/2021 ASSESSMENT : Active Problems: Term Plan: delivered Normal delivery Plan: D/c home, rto 2 and 6 weeks , routine instructions * Mari Suero RN - 04/28/2021 11:32 AM EST RN remained at bedside throughout pushing. EFM continuously assessed. Vaginal delivery of viable infant.RN remained at bedside throughout pushing. EFM continuously assessed. Vaginal delivery of viable . * Mari Suero RN - 04/28/2021 10:31 AM EST Patient actively pushing. RN remains in continuous attendance at the bedside. Assessment & evaluation of heart rate ongoing via continuous EFM. * Mari Suero RN - 04/28/2021 10:24 AM EST Romie Zapata in room for delivery. * Mari Suero RN - 04/28/2021 7:38 AM EST Romie Zapata CNM called and updated on SVE. No new orders received at this time. She states she will bein shortly. * Rachel Finley RN - 04/27/2021 10:[address] Beck in call room. Also notified of pts prolonged decel. * Rachel Finley RN - 04/27/2021 9:45 PM EST Esther Zapata CNM called and notified of 4 minute decel down to 65bpm at afshan. Pt turnex on left side and IV fluids started at 125ml/hr. FHR had been reactive prior to decel. Pt having irregular contractions. Variability good after decel. No orders at this time. * Rachel Finley RN - 04/27/2021 8:[address] Beck on unit. To room to assess pts left hand and swelling that is noted after IV attempt. States to keep ice on and then onced swelling is down to wrap with elastic tape to help keep blood from re-pooling. * Rachel Finley RN - 04/27/2021 8:50 PM EST Esther Zapata CNM called and notified of significant swelling noted to patients hand after IV attempt. Orders rec to apply ice. * Rachel Finley RN - 04/27/2021 8:45 PM EST Initial IV attempt made in left hand. Unsuccessful after flash of blood noted. Pressure applied to site. Seconds IV attempt in wrist successful. When taping IV site in wrist patients left hand from first IV attempt noted to be significantly swollen. Appears to be blood pooling under skin. Hand elevated and pressure applied again. * Rachel Finley RN - 04/27/2021 8:30 PM EST Admission paperwork and questions completed and plan of care for night reviewed with patient. * Rachel Finley RN - 04/27/2021 8:00 PM EST Pt arrives to unit for elective cytotec induction. To room urine sample obtained and gown on. To bed and EFM applied documented in this [facility] [employer] Work Phone: 1(335) 811-298311-13-2021 Hospital Discharge instructions* Instructions* Mari Suero RN - 04/29/2021 Follow-up with your OB doctor as specified. [facility] OB Department phone: Gal Zapata, MSN, CONDUCTOR AND ENGINEER, CNM [place] [phone] DIET Eat a well balanced diet focusing on foods high in fiber and protein. Drink plenty of fluids especially water. To avoid constipation you may take a mild stool softener as recommended by your doctor or national service officer. ACTIVITY Gradually increase your activity. Resume exercise regimen only after advice by your doctor or national service officer. Avoid lifting anything heavier than a gallon of milk for SIX weeks. Avoid driving until your doctor or national service officer has given their approval. Rise slowly from a lying to sitting and then a standing position. Climb stairs one at a time. Use caution when carrying your baby up and down the stairs. NO SEXUAL Activity for 4-6 weeks or until advised by your doctor; Nothing in vagina: intercourse, tampons, or douching. Be prepared to discuss family planning at your follow-up OB visit. You may feel tired or have a lack of energy. You may continue your vitamin to replenish nutrients post delivery. Nap when baby naps to catch up on sleep. EMOTIONS You may feel bedoya, sad, teary, & overwhelmed. Contact your OB provider if you feel you may be showing signs of depression, or have thoughts of harming yourself or your infant. If infant will not stop crying, contact another adult for help or place infant in their crib on their back and take a break. NEVER shake your infant. BLEEDING Vaginal bleeding will decrease in amount over the next few weeks. You will notice that as your activity increases, your flow may increase. This is your body's way oftelling you, you need to take things easier and rest more often. Call your care provider if you are saturating more than one maxi pad in an hour & resting does not help. BREAST CARE Take medications as recommended by your doctor or national service officer for pain If you develop a warm, red, tender area on your breast or develop a fever contact your OB provider. For moms: If you become engorged, feeding may be more difficult or painful for 1-2 days. You may find it helpful to hand express some milk so that the can latch on more easily. While , continue to take your vitamins as directed by your doctor or national service officer. Refer to the booklet in the folder/binder for more information. If you feel you need more assistance or have questions, please call Amanda Kwok IBCLC, end user consultant, at or the OB department to schedule an appointment or phone consultation. For more FREE help, visit the Support Group on Saturday evenings at 7 pm in the OB department. KATIE CARE Use the katie-bottle after toileting until bleeding stops. Cleanse your perineum from front to back If used, stitches will dissolve in 4-6 weeks. You may use a sitz bath or soak in a clean tub as needed for comfort. Kegel exercises will help restore bladder control. SWELLING Try to keep your legs elevated when you are sitting. When lying down keep your legs elevated. When wearing stocking or socks, make sure they are not too tight. WHEN TO CALL THE DOCTOR If you have a temp of 100.6 or more. If your bleeding has increased and you are saturating a pad in an hour. Your abdomen is tender to touch. You are passing blood clots bigger than the size of a lemon. If you are experiencing extreme weakness or dizziness. If you are having flu-like symptoms such as achy muscles or joints. There is a foul smell or a green color to your vaginal bleeding. If you have pain that cannot be relieved. You have persistent burning or frequency with urination. Call if you have concerns about your well-being. You are unable to sleep, eat, or are having thoughts of harming yourself or your baby. You have swelling, bleeding, drainage, foul odor, redness, or warmth in/around your incision or stitches. You have a red, warm, tender area in your calf. [facility] Phone: evaluation note* Diagnosis Term Normal delivery [facility] Phone: evaluation note* Diagnosis Encounter for suspected anomaly ruled out- Primary [facility] Diagnosis Encounter for supervision of other normal , second trimester- Primary [facility] Diagnosis Encounter for supervision of other normal , second trimester- Primary Screening for diabetes mellitus Screening for iron deficiency anemia related condition in third trimester [facility] Diagnosis Encounter for supervision of other normal , first trimester- Primary [facility] Diagnosis Encounter for supervision of other normal , second trimester- Primary Encounter for supervision of other normal , first trimester [facility] Diagnosis Encounter for supervision of other normal , second trimester- Primary related condition in second trimester High risk HPV infection [facility] Diagnosis Encounter for supervision of other normal , second trimester- Primary Encounter for supervision of other normal , third trimester Elevated glucose tolerance test Impaired glucose tolerance test [facility] Diagnosis Encounter for supervision of other normal , third trimester- Primary Other cough [facility] Diagnosis Encounter for supervision of other normal , third trimester- Primary Large for dates documented [facility] N[facility]ative - Reported* Type Description Date Surgical History tonsillectomy [email or web address] Other InstructionsNot on filedocumented in this encounter [facility] SystemInstructionsNot on filedocumented in this encounter [facility] Summary Purpose Family History No Family History Records FoundNo Family History Records FoundNo Family History Records FoundNo Family History Records FoundNo Family History Records FoundNo Family History Records Found Advance Directives Latest Code Status on File Code Status Date Activated Date Inactivated Comments Full Code 04/28/2021 1:45 PM Full Code 04/27/2021 8:22 PM 04/28/2021 1:45 PM Reason for Referral Specialty Diagnoses / Procedures Referred By Contac t Referred To Contact Obstetrics and Gynecology Diagnoses Encounter for supervision of other normal , first trimester Procedures [place] [facility] [facility] 60 MINUTES Ronan Zapata CNM [address] [place] [address] Ronan Zapata CNM [address] [place] [address] Referral ID Status Reason Start Date Expiration Date Visits Requested Visits Authorized [id number] Pending Review Specialty Services Required 02/04/2024 08/02/2024 1 1 Additional Source Comments INFORMATION SOURCE (unrecogn ized section and content) DATE CREATED AUTHOR 12/05/2017 [facility] DATE CREATED AUTHOR AUTHOR'S ORGANIZ ATION 05/28/2018 [employer] DATE CREATED AUTHOR AUTHOR'S ORGANIZ ATION 10/09/2018 [facility] DATE CREATED AUTHOR AUTHOR'S ORGANIZ ATION 05/04/2021 [facility] DATE CREATED AUTHOR AUTHOR'S ORGANIZ ATION 04/05/2024 [place] DATE CREATED AUTHOR AUTHOR'S ORGANIZ ATION 07/11/2024 [facility] Reason for Visit (unrecogniz ed section and content) Reason Comments Scheduled Induction Specialty Diagnoses / Procedures Referred By Contac t Referred To Contact Diagnoses Term Ronan Zapata APRN - CNM [address] [place] [address] [facility] Referral ID Status Reason Start Date Expiration Date Visits Re quested Visits Authorized [id number] 1 1 Reason Comments Possible Body Wall edema Possible Hydrops Specialty Diagnoses / Procedures Referred By Contac t Referred To Contact Obstetrics and Gynecology Diagnoses Encounter for supervision of other normal , first trimester Procedures [place] [facility] MDM 60 MINUTES Ronan Zapata, CNM [address] [place] [address] Ronan Zapata, CNM [address] [place] [address] Referral ID Status Reason Start Date Expiration Date V isits Requested Visits Authorized [id number] Closed Specialty Services Required 02/04/2024 08/02/2024 1 1 Scheduled Active and Recently Administ ered Medications (unrecognized section and content) Medication Order 04/28/2021 04/29/2021 04/30/2021 benzocaine-menthol (DERMOPLAST) 20-0.5 % spray Topical, 2 TIMES DAILY, First dose on Sat04/28/21 at 1415, Apply to perineal area. Patient is capable and may self administer at bedside., 1614 (Given - Provider: Mari Suero RN)2100 (Due) 0855 (Not Given - Provider: Mari Suero RN - Reason: Patient/family refused)2040 (Not Given - Provider: Corinne Redd RN - Reason: Patient/family refused) 0840 (Not Given - Provider: Chantel Walter RN - Reason: Other - Comment: Pt has)2100 (Due) ibuprofen (ADVIL;MOTRIN) tablet 800 mg 800 mg, Oral, EVERY 8 HOURS, First dose on Sat04/28/21 at 1415, Do not crush or break., 1750 (Not Given - Provider: Monika Martinez RN - Reason: Patient/family refused)2215 (Due) 0855 (Not Given - Provider: Mari Suero RN - Reason: Patient/family refused)2038 (Not Given - Provider: Corinne Redd RN - Reason: Other)2214 (Due) 0839 (Not Given - Provider: Chantel Walter RN - Reason: Patient/family refused)1415 (Due)2214 (Due) measles, mumps & rubella vaccine (MMR) injection 0.5 mL 0.5 mL, SubCUTAneous, PRIOR TO DISCHARGE, Starting on Sat04/28/21 at 1345, For 1 dose, miSOPROStol (CYTOTEC) pre-split tablet TABS 25 mcg (CANCELED) 25 mcg, Vaginal, EVERY 4 HOURS, First dose on Marisol 04/27/21 at 2100, Place posterior fornix/vagina, insert every 3-6 hours PRN. Avoid tachysystole. Can administer Oxytocin 4 hours after last dose. Maximum of 6 doses in 24 hours., Labor and Delivery 0106 (Given - Provider: Rachel Finley RN)0606 (Held - Provider: Bibi Mcdermott RN - Reason: Other - Comment: Directed to hold med by Esther Zapata CNM.)0900 (Canceled Entry - Provider: Bibi Mcdermott RN)1300 (Due) tpwcncl-hrfwan-zuqbz pertussis (BOOSTRIX) injection 0.5 mL 0.5 mL, IntraMUSCular, PRIOR TO DISCHARGE, Starting on Sat04/28/21 at 1345, For 1 dose, If not previously administered during at 27-36 weeks as recommended by CDC., witch keila-glycerin (TUCKS) pad Topical, 2 TIMES DAILY, First dose on Sat04/28/21 at 1415, Apply to perineal area. Patient is capable and may self administer at bedside., 1614 (Given - Provider: Mari Suero RN)2100 (Due) 0855 (Not Given - Provider: Mari Suero RN - Reason: Patient/family refused)2038 (Not Given - Provider: Corinne Redd RN - Reason: Patient/family refused) 0840 (Not Given - Provider: Chantel Walter RN - Reason: Other - Comment: Pt has)2100 (Due) Continuous Medication Order 04/28/2021 04/29/2021 04/30/2021 lactated ringers infusion (CANCELED) IntraVENous, at 125 mL/hr, CONTINUOUS, Starting on Marisol 04/27/21 at 2045, Labor and Delivery 0456 (Rate/Dose Change - Provider: Bibi Mcdermott, FABBY)0502 (New Bag - Provider: Daphnie Gonzalez RN)0525 (Rate/Dose Change - Provider: Bibi Mcdermott RN - Comment: epidural bolus)0533 (NoRateChange - Provider: Allie Edwards APRN - REMANUFACTURING TECHNICIAN)0622 (New Bag - Provider: Bibi Mcdermott RN)1459 (Stopped - Provider: Mari Suero RN) oxytocin (PITOCIN) 30 units in 500 mL infusion (CANCELED) 1 efe-units/min (1 mL/hr), IntraVENous, CONTINUOUS, Starting on Marisol 04/27/21 at 2045, Begin infusion at 1 efe-unit/min (1 efe-unit per min = 1 mL per hour) and increase by 2 efe-units/min as needed, every 30 minutes, until labor is achieved. Labor is defined as contractions every 2-3 minutes with cervical changes or [place] units (MVU) greater than 200 in a 10-minute window. Maximum infusion rate: 24 efe-unit/min. Contact provider if maximum rate does not achieve desired response. Provider may order alternative titration goal or other clinically appropriate goal of titration rate (s). If staff does not increase pitocin at ordered rate, or if pitocin is turned down or off notify provider. Call provider in am prior to starting pitocin, Labor and Delivery 1041 (New Bag - Provider: Mari Suero, FABBY)1111 (Rate/Dose Change - Provider: Mari Suero RN) PRN Medication Order 04/28/2021 04/29/2021 04/30/2021 acetaminophen (TYLENOL) tablet 650 mg 650 mg, Oral, EVERY 4 HOURS PRN, Fever, Fever >100.5 F (38 C) or pain 1-10, Starting on 04/28/21 at 1345, Maximum dose of acetaminophen is 4000 mg from all sources in 24 hours., docusate sodium (COLACE) capsule 100 mg 100 mg, Oral, 2 TIMES DAILY PRN, Constipation, Starting on Sat04/28/21 at 1345, Do not crush or break., lansinoh lanolin ointment Topical, PRN, Dry Skin, nipple discomfort, Starting on Sat04/28/21 at 1345, methylergonovine (METHERGINE) injection 200 mcg 200 mcg, IntraMUSCular, PRN, Bleeding, Starting on Sat04/28/21 at 1345, PRN for post- hemorrhage, if not hypertensive., miSOPROStol (CYTOTEC) tablet 200 mcg 200 mcg, Buccal, PRN, For Post- Hemorrhage, Starting on Sat04/28/21 at 1223 miSOPROStol (CYTOTEC) tablet 800 mcg 800 mcg, Rectal, PRN, Post- Hemorrhage, Starting on Sat04/28/21 at 1345, For 1 dose, Notify Physician prior to administration., ondansetron (ZOFRAN-ODT) disintegrating tablet 8 mg 8 mg, Oral, EVERY 8 HOURS PRN, Nausea, Starting on Sat04/28/21 at 1345, oxytocin (PITOCIN) 30 units in 500 mL infusion (CANCELED) 166 efe-units/min (166 mL/hr), IntraVENous, PRN, Bleeding, Starting on Sat04/27/21 at 2020, For 1 dose, For Post Use Only. Give after delivery of placenta. Following Bolus from bag administration, reduce the rate to 166 mL/hr and administer remaining bag, Post Delivery 1142 (Rate/Dose Change - Provider: Mari Suero RN)1202 (Rate/Dose Change - Provider: Mari Suero RN)1328 (Stopped - Provider: Mari Suero RN) Care Teams (unrecognized sec tion and content) Lasting Machine Operator Bed Relationship Specialty Start Date End Date Dian Cohen MD [address] [place], [place] [id number] PCP - General Family Medicine 10/23/22 Lasting Machine Operator Bed Relationship Specialty Start Date End Date Dian Cohen MD [address] [place] [address] 324 PCP - General Family Medicine 10/23/22 Lasting Machine Operator Bed Relationship Specialty Start Date End Date Dian Cohen MD [address] [facility] [place] [address] PCP - General Family Medicine 10/23/22 Lasting Machine Operator Bed Relationship Specialty Start Date End Date Dian Cohen MD [address] [facility] [place] [address] PCP - General Family Medicine 10/23/22 Lasting Machine Operator Bed Relationship Specialty Start Date End Date Dian Cohen MD [address] [facility] [place] [address] PCP - General Family Medicine 10/23/22 Lasting Machine Operator Bed Relationship Specialty Start Date End Date Dian Cohen MD [address] [facility] [place] [address] PCP - General Family Medicine 10/23/22 Lasting Machine Operator Bed Relationship Specialty Start Date End Date Dian Cohen MD [address] [facility] [place] [address] PCP - General Family Medicine 10/23/22 Lasting Machine Operator Bed Relationship Specialty Start Date End Date Dian Cohen MD [address] [facility] [place] [address] PCP - General Family Medicine 10/23/22 Lasting Machine Operator Bed Relationship Specialty Start Date End Date Dian Cohen MD [address] [facility] [place] [address] PCP - General Family Medicine 10/23/22 Lasting Machine Operator Bed Relationship Specialty Start Date End Date Dian Cohen MD [address] [facility] [place] [address] PCP - General Family Medicine 10/23/22 Lasting Machine Operator Bed Relationship Specialty Start Date End Date Dian Cohen MD [address] [facility] [place] [address] PCP - General Family Medicine 10/23/22 FOR RECORDS PERTAINING TO PATIENTS WHO ARE OR HAVE BEEN ENROLLED IN A CHEMICAL DEPENDENCY/SUBSTANCEABUSE PROGRAM, SOME INFORMATION MAY BE OMITTED. This clinical summary was aggregated from multiple sources. Caution should be exercised in using it in the provision of clinical care. This summary normalizes information from multiple sources, and as a consequence, information in this document may materially change the coding, format and clinical context of patient data. In addition, data may be omitted in some cases. CLINICAL DECISIONS SHOULD BE BASED ON THE PRIMARY CLINICAL RECORDS. [facility] [employer] provides no warranty or guarantee of the accuracy or completeness of information in this document.
== END 2024-07-16 13:08 | disposition home or self-care (01) ==
LOC: US 13:07
PROVIDERS: Visit Provider Midwife
DX: O26.843 Uterine size-date discrepancy, third trimester (principal); Z3A.36 36 weeks gestation of pregnancy
CPT/HCPCS: 76816

== ENCOUNTER 2024-08-09 19:12 | Inpatient (IN) | payer OTHER, SELFPAY ==
[2024-08-09] VITALS (10 sets, daily range): BP systolic 104–114; BP diastolic 59–75; PULSE 72–93; TEMP 36.5–37.1
--- OUTSIDE RECORDS SUMMARY | 2024-08-09 19:16 | XMS_ITS | CCD ---
Author Organization [facility] Care Team Providers Care Neuroscience Specialist Name Role Phone MISC, DOCTOR Unavailable Unavailable MISC, DOCTOR Unavailable Unavailable MISC, DOCTOR Unavailable Unavailable MISC, DOCTOR Unavailable Unavailable MISC, DOCTOR Unavailable Unavailable MISC, DOCTOR Unavailable Unavailable Tatyana Baptiste Attending Unavailable Tatyana Baptiste Referring Unavailable PhoenixYossi Primary Care Unavailabl e WaynarMerlin Attending Unavailable WaynarMerlinh Referring Unavailable Victor HugoYossi akers Hollis Primary [facility] Unavailabl e Merlin Sainz Attending Unavailable Wayanibal Boyer Lyndsay Referring Unavailable PhoenixYossi Hollis [facility] Unavailabl e LorieSonia Attending Unavailable LorieSonia Referring Unavailable Victor HugoYossi akers Hollis [facility] Unavailabl e Tatyana Baptiste Admitting Unavailable Tatyana Baptiste Attending Unavailable Tatyana Baptiste Referring Unavailable PhoenixYossi Hollis [facility] Unavailabl e Unavailable Primary Care Provider Unavailabl e FLOROJORDONE Attending Unavailable BHAVANIOGALRONAN Admitting Unavailable Hayley Phipps Unavailable Noel REIS, Dian Casper Primary Care Provider MARIIA MAGALLANES Attending Unavailable FLORO RONAN Referring Unavailable FLORO, RONAN Referring Unavailable Unavailable Primary Care Provider Unavailabl e BHAVANIORONAN L Attending Unavailable FLORORONAN L Attending Unavailable FLORO, RONAN L Referring Unavailable FLORO, RONAN L Attending Unavailable FLORO, RONAN L Attending Unavailable FLORO, RONAN L Referring Unavailable FLORO, RONAN L Attending Unavailable FLORO, RONAN L Referring Unavailable FLORO, RONAN L Attending Unavailable FLORO, RONAN L Referring Unavailable FLORO, RONAN L Attending Unavailable FLORO, RONAN L Attending Unavailable FLORO, RONAN L Attending Unavailable RONAN ZAPATA Attending Unavailable RONAN ZAPATA Attending Unavailable Medications Current Medications Medication Drug [...] 04-28-2021 ondansetron (ZOFRAN-ODT) disintegrating tablet 8 mg [id number]-drdfo acid ( 19) 29 mg iron- 1 mg tablet,chewable (4 sources) kq639-qrwy-humef acid ( 19) 29 mg iron- 1 mg tablet,chewable Chew 1 tablet and swallow in the morning. Active Vienva (1 source) Vienva Active witch keila 500 mg/ml medicated pad (1 source) Start: 04-28-2021 witch keila-gl ycerin (CKS) pad Completed/Discontinued Medications Medication Drug Class(es) Dates [...] diseases Episodic Other aftercare (1 source) Other bpo specialist (current) drug therapy; Translations: [OTH SLUBBER RUNNER CURRENT DRUG THERAPY] Onset: 10-17-2017 Episodic Other [...] Translations: [Other cough] 06-22-2024 Episodic Other conditions (6 sources) Jczue-ffb-qtnhs at regardless of gestation period; Translations: [Other heavy for gestational age ] 07-06-2024 Episodic Other and delivery including normal (20 sources) Term ; Translations: [Encounter for supervision of normal , unspecified, unspecified trimester] Onset: 04-27-2021 Resolved: 04-29-2021 Episodic Other screening for suspected conditions (not mental disorders or infectious disease) (12 sources) Encounter for other specified screening; Translations: [Encounter for screening for cervical length] Onset: 04-02-2024 05-07-2024 Episodic Other skin disorders (4 sources) Acne [...] Test Name Value Interpretation Reference Range Facility US OB FOLLOW UP TRANSABDOMIN AL APPROACHon 08-06-2024 US OB FOLLOW UP TRANSABDOMINAL APPROACH TITLE OF EXAM: OB Ultrasound: REASON FOR EXAM: Large for dates. COMPARISON: 07/16/2024 TECHNIQUE: Grayscale and M-mode Doppler imaging is performed. FINDINGS: heart rate: 158 bpm KIMBERLY: 15.4 cm (7.2-22.6) BPD: 9.9 cm HC: 34.8 cm AC: 36.5 cm FL: 8.0 cm GA for sonogram: 40.2 wk (37.9-42.6) Cervix length: 4.8 cm ANANDA: 08/13/2024 Weight Estimate: Weight: 4123 gm / 9 lbs, 1 oz (6755-4037) Hadlock Normal: 3435 gm (5034-5961 gm) Hadlock Wt%: 99% for 39.0 wks Age by LMP: 39 w 0 d Age US today: 40 w 4 d ANANDA by LMP: 08/13/2024 ANANDA US today: 08/02/2024 Gestation: Single Position: Cephalic Placental Location: Posterior, right Placental Grade: 2 Heart Rate: 158 bpm Somatic Movement: Yes Cervical Length: 4.79 cm Placenta is posterior and grade 3. Fluid-filled stomach is visualized. Beating heart is present with rate of 158. IMPRESSION: 1. Single live intrauterine gestation in cephalic position estimated at 40.2 weeks. 2. EFW greater than 95% for provided clinical dates. Dictated and transcribed 08/06/24/dpd This report has been electronically signed and approved by the interpreting radiologist. Normal Not Available US OB GROWTHon 07-16-2024 [place] [address] Ultrasound Report Signed Patient: MEL HESTER MR#: [id number] : 2000 Acct:[id number] Age/Sex: 23 / F ADM Date: 07/16/24 Loc: US Attending Dr: RONAN ZAPATA APRN, CNM Ordering Physician: RONAN ZAPATA APRN, CNM Date of Service: 07/16/24 Procedure(s): US OB growth Accession Number(s): [id number] cc: RONAN ZAPATA APRN, CNM; Physician,Non-Staff M.D. The [address] [address] Patient Name: MEL HESTER MRN: [id number] date: 2000 Sex: F Assigned Patient Location: US Current Patient Location: US Accession/Order Number: [id number] Exam Date: 07/16/2024 13:15 Report Date: 07/16/2024 14:09 At the request of: RONAN ZAPATA Procedure: US OB growth EXAMINATION: US OB growth HISTORY: Large For Dates COMPARISON: ULTRASOUND OB GROWTH 05/29/2024 FINDINGS: Heart Rate: 133.00 bpm Amniotic Fluid Volume: 17.5 cm; normal range. Number: 1 Position: CEPHALIC BIOMETRY: BPD: 9.48 cm; 30 weeks 5 days; >97 % HC: 35.13 cm; 41 weeks 0 days; >97 % AC: 35.71 cm; 39 weeks 4 days; 97 % FL: 7.03 cm; 36 weeks 0 days; 46.40 % EFW: 3623.75 g; 97 % FL/AC: 19.68 FL/BPD: 74.15 HC/AC: 0.98 GESTATIONAL AGE: Age by EDC: 36 weeks 0 days ANANDA by EDC: 2024-08-13 Age by US: 38 weeks 6 days ANANDA by US: 2024-07-24 US/US OB growth IMPRESSION: 1. Single live intrauterine with growth detailed above. 2. Estimated weight is greater than 97th percentile. 3. Slightly prominent appearance of the intra-abdominal umbilical vein, 1.1 cm in diameter (of uncertain clinical significance). Electronically authenticated by: JAYDON TERRAZAS Date: 07/16/2024 14:09 Dictated By: Jaydon Terrazas M.D. Signed By: 07/16/24 1412 DD/ 1409 TD/TT: Tape Making Machine Operator: [facility] Radiology, Radiologist, MD - 07/16/2024 [place] [address] Ultrasound Report Signed Patient: MEL HESTER MR#: [id number] : 2000 Acct:[id number] Age/Sex: 23 / F ADM Date: 07/16/24 Loc: US Attending Dr: RONAN ZAPATA APRN, CNM Ordering Physician: RONAN ZAPATA APRN, CNM Date of Service: 07/16/24 Procedure(s): US OB growth Accession Number(s): [id number] cc: RONAN ZAPATA APRN, CNM; Physician,Non-Staff M.D. The [place] [id number] Patient Name: MEL HESTER MRN: [id number] date: 2000 Sex: F Assigned Patient Location: US Current Patient Location: US Accession/Order Number: [id number] Exam Date: 07/16/2024 13:15 Report Date: 07/16/2024 14:09 At the request of: RONAN ZAPATA Procedure: US OB growth EXAMINATION: US OB growth HISTORY: Large For Dates COMPARISON: ULTRASOUND OB GROWTH 05/29/2024 FINDINGS: Heart Rate: 133.00 bpm Amniotic Fluid Volume: 17.5 cm; normal range. Number: 1 Position: CEPHALIC BIOMETRY: BPD: 9.48 cm; 30 weeks 5 days; >97 % HC: 35.13 cm; 41 weeks 0 days; >97 % AC: 35.71 cm; 39 weeks 4 days; 97 % FL: 7.03 cm; 36 weeks 0 days; 46.40 % EFW: 3623.75 g; 97 % FL/AC: 19.68 FL/BPD: 74.15 HC/AC: 0.98 GESTATIONAL AGE: Age by EDC: 36 weeks 0 days ANANDA by EDC: 2024-08-13 Age by US: 38 weeks 6 days ANANDA by US: 2024-07-24 US/US OB growth IMPRESSION: 1. Single live intrauterine with growth detailed above. 2. Estimated weight is greater than 97th percentile. 3. Slightly prominent appearance of the intra-abdominal umbilical vein, 1.1 cm in diameter (of uncertain clinical significance). Electronically authenticated by: JAYDON TERRAZAS Date: 07/16/2024 14:09 Dictated By: Jaydon Terrazas M.D. Signed By: 07/16/24 1412 DD/ 1409 TD/TT: Tape Making Machine Operator: JONATHON [facility] Radiology Study observation (narrative) JONATHON [facility] US OB GROWTHOrdered By: Shaggy bishopogra Radiology on 07-16-2024 JONTAHON [employer] Work Phone: Ultrasound - Officeon 2023 Radiology Study observation (narrative) [facility] [employer] Ultrasound - Officeon 2023 Radiology Study observation (narrative) [facility] Ultrasound - Officeon 2023 [facility] US OB 14+ WEEKS ANATOMY SCAN on [...] Grade 0/III Amniotic fluid volume is normal. Cyber Reverse Engineer notes: ?Abnormal renals. Trace fluid, appear large. IMPRESSION: 1. Findings consistent with anasarca/hydrops. Question renal enlargement. rotoprinter followup recommended emergent. 2. Normal growth. Single viable IUP at this time. Discussed with Gal Zapata CNM 03/25/24 12:36 p.m. [facility]. *This report is generated using voice recognition reporting (Playfish). On occasion [employer] erroneously drops words from the report or [...] [facility] Internal identifier for Provider [id number] [facility] Healthcare Specimen source Nom (Unsp spec) URINE [facility] STATUS FINAL [facility] Laboratory - Drug toxicology on 01-12-2024 0-Tscrxsdfmn-6,5-Dimeth yl-3,3-Diphenylpyrrolid ine (EDDP) Ql (U) Negative NINF - 100 ng/mL [facility] Amphetamines Ql (U) Negative NINF - 5 00 ng/mL [facility] Barbiturates Ql (U) Negative NINF - 3 00 ng/mL [facility] Benzodiazepines Ql (U) Negative [facility]INF - 100 ng[facility] Benzoylecgonine Ql (U) Negative NINF - 150 ng/mL [facility] Opiates Ql (U) Negative NINF - 100 ng/mL [facility] oxyCODONE Ql (U) Negative NINF - 100 ng/mL [facility] Phencyclidine Ql (U) Negative NINF - 25 ng/mL [facility] Tetrahydrocannabinol Screen method >20 ng/mL Ql (U) Negative NINF - 20 ng/mL [facility] Laboratory - Microbiology an d Antimicrobial susceptibilityon 01-12-2024 Bacteria identified Cx Nom (U) SEE NOTE [facility] Comment on above: Mixed genital cade isolated. These superficial bacteria are not indicative of a urinary tract infection. No further organism identification is warranted on this specimen. If clinically indicated, recollect clean-catch, mid-stream urine and transfer immediately to Urine Culture Transport Tube. Laboratory - Miscellaneous t estson 01-12-2024 Service comment (Unsp spec) [Interp] [facility] Comment on above: This urine was ebony zed for the presence of WBC, RBC, bacteria, casts, and other formed elements. Only those elements seen were reported. Laboratory - Urinalysison Epithelial cells.squamous LM.HPF (Urine sed) [#/Area] 0-5 < OR = 5 /HPF [facility] RBC LM.HPF (Urine sed) [#/Area] 0-2 < OR = 2 /HPF [facility] N. gonorrhoeae DNA WOO+probe Ql (Cervical mucus)on 01-12-2024 C. trachomatis rRNA WOO+probe Ql (Unsp spec) Not detected NOT DETECTED [facility] N. gonorrhoeae rRNA WOO+probe Ql (Unsp spec) Not detected NOT DETECTED [facility] No Panel Informationon 01-11 (ALWAYS MESSAGE) [facility] Comment on above: See Note 1 Note 1 This drug testing is for medical treatment only. Analysis was performed as non-forensic testing and these results should be used only by healthcare providers to render diagnosis or treatment, or to monitor progress of medical conditions. For assistance with interpreting these drug results, please contact a [facility] Toxic[facility] Specialist: [phone] ( ), M-F, 8am-6pm EST. The analytical perfo rmance characteristics of this assay, when used to test SurePath(TM) specimens have been determined by [facility]. The modifications have not been cleared or approved by the FDA. This assay has been validated pursuant to the CLIA regulations and is used for clinical purposes. For additional information, please refer to https://education.Mensajeros Urbanos/faq/EQB509 (This link is being provided for information/ educational purposes only.) SPLIT 01/09/2024 FROM [id number] [facility] Organization Information Site ID: QPT Name: [facility] Address: [address] [place] [id number] Director: Ravinder Ndiaye MD [facility] Organization Information Site ID: QTW [facility]: [facility] Address: [address] [place] [phone] Director: Padmini Holly [facility] CBC panel Auto (Bld)on 01-09 Erythrocyte distribution width (RBC) [Ratio] 13.2 % 11.0 - 15.0 % [facility] Hematocrit (Bld) [Volume fraction] 40.9 % 35.0 - 45.0 % [facility] Hemoglobin (Bld) [Mass/Vol] 13.8 g/dL 11.7 - 15.5 g/dL [facility] MCH (RBC) [Entitic mass] 28.6 pg 27.0 - 33.[address] [facility] MCHC (RBC) [Mass/Vol] 33.7 g/dL 32.0 - 36.0 g/dL [facility] MCV (RBC) [Entitic vol] 84.7 fL 80.0 - 100.[address] [facility] Platelet mean volume (Bld) [Entitic vol] 9.4 fL 7.5 - 12.[address] [facility] Platelets (Bld) [#/Vol] 362 10*3/uL [facility] RBC (Bld) [#/Vol] 4.83 10*6/uL [facility] WBC (Bld) [#/Vol] 10.3 10*3/uL [facility] Chlamydia/GC by PCR Fabi Sw abon 01-10-2024 Chlamydia Dna(Pcr) Not detected [facility] Gonorrhoeae Dna(Pcr) Not detected Pr [facility] Drug Screen, Urineon 024 Amphetamine/Methampheta mine Negative [facility] Barbiturate Screen Urine Negative [facility] Benzodiazepine Screen, Urine Negative [facility] Cocaine Metabolite Negative [facility] Methadone,Meconium Negative [facility] Opiate Quantitative Urine Negative [facility] Oxycodone Negative [facility] Phencyclidine Negative [facility] Thc Marijuana, Urine Negative [facility] Laboratory - Blood bankon ABO group Nom (Bld) A [facility] Blood group antibody screen Ql Detected [facility] Comment on above: Reference range No antibodies detected This assay is a screening test for the detection of red blood cell antibodies. The test is not to be used for pretransfusion screening or for the medical management of an alloimmunized . Rh Nom (Bld) Positive [facility] are Comment on above: For additional information, please refer to http://education.TicketLabs.com/faq/STE103 (This link is being provided for informational/ educational purposes only.) Laboratory - Chemistry and C hemistry - challengeon 01-10-2024 TSH Qn 3.26 m[IU]/L mIU/L [facility] are Comment on above: Reference Range > or = 20 Years 0.40-4.50 Ranges First trimester 0.26-2.66 Second trimester 0.55-2.73 Third trimester 0.43-2.91 Laboratory - Hematology and Cell countson 01-10-2024 HbA1c (Bld) [Mass fraction] 5.6 % [facility] Comment on above: For the purpose of s creening for the presence of diabetes: <5.7% Consistent with the absence of diabetes 5.7-6.4% Consistent with increased risk for diabetes (prediabetes) > or =6.5% Consistent with diabetes This assay result is consistent with a decreased risk of diabetes. Currently, no consensus exists regarding use of hemoglobin A1c for diagnosis of diabetes in children. According to [place] Diabetes Association (ADA) guidelines, hemoglobin A1c <7.0% represents optimal control in non- diabetic patients. Different metrics may apply to specific patient populations. Standards of Medical Care in Diabetes(ADA). This test was performed on the Yudith fabi c503 platform. Effective 06/03/23, a change in test platforms from the Handley Tuckpointer Cleaner Caulker to the Yudith fabi c503 may have shifted HbA1c results compared to historical results. Based on laboratory validation testing conducted at [facility], the Yudith platform relative to the Handley [...] HBV surface Ag IA Ql Non-Reactive NON-REACTIVE [facility] Comment on above: For additional information, please refer to http://Shareaholic.Mensajeros Urbanos/faq/CTH516 (This link is being provided for informational/ educational purposes only.) HCV Ab IA Ql Non-Reactive NON-REACTIVE [facility]care Comment on above: HCV antibody was non-reactive. There is no laboratory evidence of HCV infection. In most cases, no further action is required. However, if recent HCV exposure is suspected, a test for HCV RNA (test code 32935) is suggested. For additional information please refer to http://Shareaholic.Mensajeros Urbanos/faq/FVE59y5 (This link is being provided for informational/ educational purposes only.) HIV 1+2 Ab+HIV1 p24 Ag IA Ql Non-Reactive NON-REACTIVE [facility] Comment on above: HIV-1 antigen and HI [...] purpose. For additional information please refer to http://education.Mensajeros Urbanos/faq/QJU803 (This link is being provided for informational/ educational purposes only.) The performance of this assay has not been clinically validated in patients less than 2 years old. Reagin Ab RPR Ql (S) Non-Reactive NON-REACTIVE [facility] Rubella virus IgG Qn (S) 1.98 [IU]/mL Index [facility] Comment on above: Index Interpretation ----- <0.90 Not consistent with immunity 0.90-0.99 Equivocal > or = 1.00 Consistent with immunity The presence of rubella IgG antibody suggests immunization or past or current infection with rubella virus. No Panel Informationon 01-09 COLLECTION KIT GIVEN TO PATIENT. PATIENT ADVISED TO RETURN. Firm[employer] Organization Information Site ID: QPT Name: [facility] Address: [address] [place] [address], [address] [place] [phone] Director: Ravinder Ndiaye MD [facility] without diffon Hematocrit (Bld) [Volume fraction] 40.9 % [facility] Hemoglobin (Bld) [Mass/Vol] 13.8 g/dL [facility] Platelets (Bld) [#/Vol] 362 10*3/uL [facility] Rbc Mcv (Fl) By Automated Count 84.7 [facility] HIV 1&2 AB/AG Screen (P24 AG )on 01-09-2024 HIV 1&2 AB/AG [facility]-Reactive [facility] Hem[facility] A1con 01-09-2024 HbA1c (Bld) [Mass fraction] 5.6 % 4.0 - 6.0 % [facility] Hepatitis B surface antigeno n 01-09-2024 Hepatitis B Surface Antigen Non-Reactive [facility] Hepatitis C(HCV) Ab w/ Refle x to PCRon 01-09-2024 HCV Ab Ql (S) Non-Reactive [facility] No Panel Informationon 01-08 [facility] Rubella IGG immune statuson 01-09-2024 Rubella immune IgG 1.98 IU/mL [facility] Syphilis Total(Unknown Syphi lis Status)on 01-09-2024 Syphilis Non-Reactive [facility] TSHon 01-09-2024 Thyroid Stimulating (3Rd Generation) Hormone/ Tsh 3.26 [facility] Type and screenon 01-09-2024 Abo/Rh(D) Positive [facility] US OB < 14 WEEKS EARLYon US [...] Normal Not Available Ultrasound - Officeon 2023 [facility] COVID/FLU/RSV RT-PCRon 07-13 SARS-CoV-2 (COVID-19) RNA WOO+probe Ql (Unsp spec) Negative [place] [employer] Other COVID/FLU/RSV RT-PCR Negative [facility] [employer] [facility] Other CBC auto differentialon 04-17 Absolute Eos # 0.04 [facility] th Absolute Immature Granulocyte 0.06 [facility] Absolute Lymph # 1.90 [facility] Absolute Bland # 0.75 [facility] Basophils (Bld) [#/Vol] 10*3/uL [facility] Basophils/100 WBC (Bld) 0 % 0 - 2 % [facility] Differential Type NOT REPORTED [facility] Eosinophils/100 WBC (Bld) 0 % Low 1 - 4 % [facility] Hematocrit (Bld) [Volume fraction] 37.1 % 36.3 - 47.1 % [facility] Hemoglobin.gastrointest inal spec 1 Ql (Stl) 12.2 g/dL 11.9 - 15.1 g/dL [facility] Immature granulocytes/100 WBC (Bld) 1 % High 0 [facility] Interpretation and review of laboratory results Abnormal [facility] Lymphocytes/100 WBC (Bld) 20 % Low 25 - 45 % [facility] MCH (RBC) [Entitic mass] 28.0 pg 25.2 - 33.5 pg [facility] MCHC (RBC) [Mass/Vol] 32.9 g/dL 28.4 - 34.8 g/dL [facility] MCV (RBC) [Entitic vol] 85.3 fL 82.6 - 102.9 fL [facility] Monocytes/100 WBC (Bld) 8 % 2 - 8 % [facility] NRBC Automated 0.0 0.0 per 100 WBC [facility] Platelet distribution width (Bld) [Ratio] 15.6 % High 11.8 - 14.4 % [facility] Platelet Estimate NOT REPORTED [facility] Platelet mean volume (Bld) [Entitic vol] 9.9 fL 8.1 - 13.5 fL [facility] Platelets (Bld) [#/Vol] 286 10*3/uL [facility] RBC (Bld) [#/Vol] 4.35 10*6/uL 3.95 - 5.1 1 m/uL [facility] RBC (Bld) [#/Vol] NOT REPORTED [facility] Segmented neutrophils/100 WBC (Bld) 71 % High 34 - 64 % [facility] Segs Absolute 6.57 [facility] h WBC (Bld) [#/Vol] 9.3 10*3/uL [facility] WBC (Bld) [#/Vol] NOT REPORTED [facility] CBC with Diffon 04-27-2021 Abs. Basophil <0.03 Normal 0.00-0.20 [facility] Comment on above: Performed By: #### C DP #### [facility] [address] [place] [address] Design Assistant: Mina Brunner MD Abs.Imm.Granulocyte 0.06 k/uL Normal 0.00-0.30 [facility] Comment on above: Performed By: #### C DP #### [facility] [address] [place] [address] Design Assistant: Mina Brunner MD Abs.Neutrophil (Seg) 6.57 k/uL Normal 1.80-8.00 [facility] Comment on above: Performed By: #### C DP #### [facility] [address] [place] [address] Design Assistant: Mina Brunner MD Basophils/100 WBC (Bld) 0 % Normal 0-2 [facility] Comment on above: Performed By: #### C DP #### [address] [place] [address] Design Assistant: Mina Brunner MD Eosinophils (Bld) [#/Vol] 0.04 10*3/uL Normal 0.00-0.44 [facility] Comment on above: Performed By: #### C DP #### [facility] [address] [place] [address] Design Assistant: Mina Brunner MD Eosinophils/100 WBC (Bld) 0 % Low 1-4 [facility] Comment on above: Performed By: #### C DP #### [facility] [address] [place] [address] Design Assistant: Mina Brunner MD Erythrocyte distribution width (RBC) [Ratio] 15.6 % High 11.8-14.4 [facility] Comment on above: Performed By: #### C DP #### [facility] [address] [place], [place] [id number] Design Assistant: Mina Brunner MD Hematocrit (Bld) [Volume fraction] 37.1 % Normal 36.3-47.1 [facility] Comment on above: Performed By: #### C DP #### [facility] [address] [place], [id number] Design Assistant: Mina Brunner MD Hemoglobin (Bld) [Mass/Vol] 12.2 g/dL Normal 11.9-15.1 [facility] Comment on above: Performed By: #### C DP #### [address] [place], [id number] Design Assistant: Mina Brunner MD Immature granulocytes/100 WBC (Bld) 1 % High 0 [facility] Comment on above: Performed By: #### C DP #### [address] [place], [place] [id number] Design Assistant: Mina Brunner MD Lymphocytes (Bld) [#/Vol] 1.90 10*3/uL Normal 1.20-5.20 [facility] [facility] Comment on above: Performed By: #### C DP #### [facility] [address] [place] [address] Dr. [place], [id number] Design Assistant: Mina Brunner MD Lymphocytes/100 WBC (Bld) 20 % Low 25-45 [facility] Comment on above: Performed By: #### C DP #### [address] [place] [address] Design Assistant: Mina Brunner MD MCH (RBC) [Entitic mass] 28.0 pg Normal 25.2-33.5 [facility] Comment on above: Performed By: #### C DP #### [facility] [address] [place] [address] Dr. [place], [place] [id number] Design Assistant: Mina Brunner MD MCHC (RBC) [Mass/Vol] 32.9 g/dL Normal 28.4-34.8 [facility] Comment on above: Performed By: #### C DP #### [facility] [address] [place] [address] Dr. [place], [place] [id number] Design Assistant: Mina Brunner MD MCV (RBC) [Entitic vol] 85.3 fL Normal 82.6-102.9 [facility] Comment on above: Performed By: #### C DP #### [address] [place], [place] [id number] Design Assistant: Mina Brunner MD Monocytes (Bld) [#/Vol] 0.75 10*3/uL Normal 0.10-1.40 [facility] Comment on above: Performed By: #### C DP #### [facility] [address] [place] [address] Dr. [place], [place] [id number] Design Assistant: Mina Brunner MD Monocytes/100 WBC (Bld) 8 % Normal 2-8 [facility] Comment on above: Performed By: #### C DP #### [address] [place], [place] [id number] Design Assistant: Mina Brunner MD Neutrophil (Seg) 71 % High 34-64 [facility] Comment on above: Performed By: #### C DP #### [facility] [address] [place] [address] Dr. [place], [place] [id number] Design Assistant: Mina Brunner MD NRBC Automated 0.0 per 100 WBC Normal 0.0 [facility] Comment on above: Performed By: #### C DP #### [address] [place], [place] [id number] Design Assistant: Mina Brunner MD Platelet mean volume (Bld) [Entitic vol] 9.9 fL Normal 8.1-13.5 [facility] Comment on above: Performed By: #### C DP #### [facility] [address] [place], [place] [id number] Design Assistant: Mina Brunner MD Platelets (Bld) [#/Vol] 286 10*3/uL Normal 138-453 [facility] Comment on above: Performed By: #### C DP #### [facility] [address] [place], [place] [id number] Design Assistant: Mina Brunner MD RBC (Bld) [#/Vol] 4.35 10*6/uL Normal 3.95-5.11 [facility] Comment on above: Performed By: #### C DP #### [facility] [address] [place], [place] [id number] Design Assistant: Mina Brunner MD WBC (Bld) [#/Vol] 9.3 10*3/uL Normal 4.5-13.5 [facility] Comment on above: Performed By: #### C DP #### [facility] [address] [place], [id number] Design Assistant: Mina Brunner MD Auto Diff Performed NOT REPORTED Normal [facility] Comment on above: Performed By: #### C DP #### [facility] [address] [place], [id number] Design Assistant: Mina Brunner MD Platelet Comment NOT REPORTED Normal [facility] Comment on above: Performed By: #### C DP #### [facility] [address] [place], [place] [id number] Design Assistant: Mina Brunner MD RBC morphology finding Nom (Bld) NOT REPORTED Normal [facility] Comment on above: Performed By: #### C DP #### [facility] [address] [place], [place] [id number] Design Assistant: Mina Brunner MD WBC Morphology NOT REPORTED Normal [facility] Comment on above: Performed By: #### C DP #### [facility] [address] [place] [address] Design Assistant: Mina Brunner MD DRUG SCREEN MULTI URINEon Amphetamine Screen, Ur Negative NEGATIVE Me [facility] Barbiturate Screen, Ur Negative NEGATIVE [facility] Benzodiazepine Screen, Urine Negative NEGATIVE [facility] Buprenorphine Urine Negative NEGATIVE [facility] Cannabinoid Scrn, Ur Negative NEGATIVE [facility] Cocaine Metabolite, Urine Negative NEGATIVE [facility] MDMA, Urine NOT REPORTED NEGATIVE [facility] Methadone Screen, Urine Negative NEGATIVE [facility] Methamphetamine, Urine Negative NEGATIVE Me [facility] Opiates, Urine Negative NEGATIVE [facility] Oxycodone Screen, Ur Negative NEGATIVE [facility] Phencyclidine, Urine Negative NEGATIVE [facility] Propoxyphene, Urine Negative NEGATIVE [facility] Health Test Information NOT REPORTED [facility] Tricyclic Antidepressants, Urine Negative NEGATIVE [facility] Comment on above: Drug screen results are to be used for medical purposes only. All positive results are unconfirmed. Testing for employment or legal uses should be sent to a reference laboratory for confirmation. [facility] Drug Scr, Abuse, Uron 2020 Amphetamine(s),Ur Negative Normal NEG [facility] Comment on above: Performed By: #### D AU #### [facility] [address] [place] [address] [place] [address] Design Assistant: Mina Brunner MD Barbiturate(s),Ur Negative Normal NEG [facility] Comment on above: Performed By: #### D AU #### [facility] [address] [place] [address] Design Assistant: Mina Brunner MD Benzodiazepine(s) Negative Normal NEG [facility] Comment on above: Performed By: #### D AU #### [facility] [address] [place] [address] Design Assistant: Mina Brunner MD Buprenorphrine, Ur Negative Normal NEG [facility] Comment on above: Performed By: #### D AU #### [facility] [address] [place], [place] [id number] Design Assistant: Mina Brunner MD Cannabinoid(s),Ur Negative Normal NEG [facility] Comment on above: Performed By: #### D AU #### [facility] [address] [place], [place] [id number] Design Assistant: Mina Brunner MD Cocaine Metabolite Negative Normal [facility] Comment on above: Performed By: #### D AU #### [facility] [address] [place], [place] [id number] Design Assistant: Mina Brunner MD Methadone Ql (U) Negative Normal [facility] Comment on above: Performed By: #### D AU #### [facility] [address] [place], [place] [id number] Design Assistant: Mina Brunner MD Methamphetamine, Ur Negative Normal [facility] Comment on above: Performed By: #### D AU #### [facility] [address] [place] [address] Design Assistant: Mina Brunner MD Opiate(s), Ur Negative Normal [facility] Comment on above: Performed By: #### D AU #### [facility] [address] [place] [address] Design Assistant: Mina Brunner MD Oxycodone, Urine Negative Normal NEG [facility] Comment on above: Performed By: #### D AU #### [facility] [address] [place], [place] [id number] Design Assistant: Mina Brunner MD Phencyclidine, Ur Negative Normal [facility] Comment on above: Performed By: #### D AU #### [facility] [address] [place], [place] [id number] Design Assistant: Mina Brunner MD Propoxyphene,Urine Negative Normal NEG [facility] Comment on above: Performed By: #### D AU #### [facility] [address] [place] [address] Design Assistant: Mina Brunner MD Tricyclic antidepressants Screen Ql (U) Negative Normal NEG [facility] Comment on above: Result Comment: Drug screen results are to be used for medical purposes only. All positive results are unconfirmed. Testing for employment or legal uses should be sent to a reference laboratory for confirmation. Performed By: #### D AU #### [facility] [address] [place], [place] [id number] Design Assistant: Mina Brunner MD Interpretive Info NOT REPORTED Normal [facility] Comment on above: Performed By: #### D AU #### [facility] [address] [place], [place] [id number] Design Assistant: Mina Brunner MD MDMA, Urine NOT REPORTED Normal NEG [facility] Comment on above: Performed By: #### D AU #### [facility] [address] [place], [place] [id number] Design Assistant: Mina Brunner MD Chlamydia Cultureon 04-06-20 [facility] [employer] Phone: GBS, External Resulton 04-06 GBS, External Result Negative [facility] [employer] Phone: [facility] HIV Screenon 10-05-2020 HIV Ag/Ab NR [facility] [employer] Phone: N. GONORRHOEAE CULTUREon Culture, Gonorrhoeae Negative [facility] [employer] Phone: [facility] Phone: No Panel Informationon 10-05 [facility]: PROFILE Ion 021 ABO/Rh Positive [facility] Work Phone: Hepatitis B Surface Ag Negative [facility] Work Phone: Rubella virus IgG Ql (S) Positive [facility] Work Phone: T. pallidum, IgG NR [employer] Work Phone: 12-18 Yearson 01-03-2018 12-18 Years Chief Jmivsuuiz63 year History of Present IllnessMEL is 17 year old here today with [...] and has nonviolent peer relationships Mental Health: MLE does not express concerning mental health symptoms, [...] 05/02/2016 9:13:16 AM Vitals Vital Signs Recorded: [id number] 03:37PMHeart Ovyw97Smvsvxal394Ta mlmnynu61Jyvelg9 ft 3.5 neEawrwu448 lb 4 ozBMI Hxlxbgsnhm86.49BSA Calculated1.58BMI Qvstdggbro95 %2-20 Stature Tnetdiyjsr07 %2-20 Weight Hqvtdggttm66 %O2 Ynvsjaivms40 Physical ExamConstitutional: Well developed, well nourished, well [...] Jan 03 2018 4:11PM EST (Author) Normal [employer] CBC AUTO DIFFon 10-12-2017 Basophils Auto #/vol (Bld) 0.1 103/ul Normal 0.0-0.1 [facility] Comment on above: Performed By: #### C BC ####[facility] [address] [place], [place] [id number] Kathleen Basophils/100 WBC Auto (Bld) 0.7 % Normal 0.2-2.0 [facility] Comment on above: Performed By: #### C BC ####[facility] [address] [place], [place] [id number] Kathleen Eosinophils 0.1 103/ul Normal 0.0-0.7 [facility] Comment on above: Performed By: #### C BC ####[facility] [address] [place], [place] [address]Gerken Kathleen Eosinophils/100 leukocytes 1.3 % Normal 0.9-7.0 [facility] Comment on above: Performed By: #### C BC ####[facility] [address] [place], [place] [address]Gerken Kathleen Erythrocyte distribution width Auto Ratio (RBC) 13.9 % Normal 11.0-15.0 [facility] Comment on above: Performed By: #### C BC ####[facility] [address] [place], [place] [address]Gerken Kathleen Erythrocytes (RBC) 5.06 106/ul Normal 3.40-5.30 [facility] Comment on above: Performed By: #### C BC ####[facility] [address] [place], [place] [address]Gerken Kathleen Hematocrit (HCT) 41.3 % Normal 36.0-48.0 [facility] Comment on above: Performed By: #### C BC ####[facility] [address] [place] [address] Kathleen Hemoglobin mass conc (Bld) 13.8 g/dL Normal 12.0-16.0 [facility] Comment on above: Performed By: #### C BC ####[facility] [address] [place] [address] Kathleen IG # 0.02 10e3/ul Normal 0.00-0.03 [facility] Comment on above: Performed By: #### C BC ####[facility] [address] [place] [address] Kathleen IG % 0.3 % Normal 0.0-0.5 [facility] Comment on above: Performed By: #### C BC ####[facility] [address] [place] [address] Kathleen Lymphocytes 2.2 103/ul Normal 1.2-3.8 [facility] Comment on above: Performed By: #### C BC ####[facility] [address] [place] [address] Kathleen Lymphocytes/100 leukocytes 31.0 % Normal 20.5-60.0 [facility] Comment on above: Performed By: #### C BC ####[facility] [address] [place] [address] Kathleen MANUAL DIFF REQ NO Normal [facility] Comment on above: Performed By: #### C BC ####[facility] [address] [place] [address] Kathleen MCH 27.3 pg Normal 26.7-34.0 [facility] Comment on above: Performed By: #### C BC ####[facility] [address] [place] [address] Kathleen MCHC mass conc (RBC) 33.4 g/dL Normal 29.9-35.2 [facility] Comment on above: Performed By: #### C BC ####[facility] [address] [place], [place] [address]Lncchs Kathleen MCV 81.6 fL Normal 79.1-95.6 [facility] Comment on above: Performed By: #### C BC ####[facility] [address] [place], [place] [address]Biisid Kathleen Monocytes 0.5 103/ul Normal 0.3-0.8 [facility] Comment on above: Performed By: #### C BC ####[facility] [address] [place], [place] [address]Ydjrof Kathleen Monocytes/100 leukocytes 7.4 % Normal 1.7-12.0 [facility] Comment on above: Performed By: #### C BC ####[facility] [address] [place], [place] [address]Wmlpcl Kathleen Neutrophils 4.2 103/ul Normal 1.4-6.5 [facility] Comment on above: Performed By: #### C BC ####[facility] [address] [place], [place] [address]Nlhvvm Kathleen Neutrophils/100 WBC Auto (Bld) 59.3 % Normal 43.0-75.0 [facility] Comment on above: Performed By: #### C BC ####[facility] [address] [place], [place] [address]Zefkhc Kathleen Platelet mean volume (PMV) 9.3 fL Critically low 9.5-13.5 [facility] Comment on above: Performed By: #### C BC ####[facility] [address] [place], [place] [address]Bpoehm Kathleen Platelets 330 103/ul Normal 150-450 [facility] Comment on above: Performed By: #### C BC ####[facility] [address] [place], [place] [address]Bnzjpc Kathleen WBC (Leukocytes) 7.1 103/ul Normal 4.0-11.0 [facility] Comment on above: Performed By: #### C BC ####[facility] [address] [place], [place] [address]Dvzhsw Kathleen CHOLESTEROL TOTALon 10-13-19 18 Cholesterol 283 mg/dL Critically high 104-227 [facility] Comment on above: Performed By: #### A LT, TRIG, CHOL, AST ####[facility] [address] [place] [id number] Josephen SGOTon 10-12-2017 Aspartate aminotransferase (AST) 35 U/L Normal 14-36 [facility] Comment on above: Performed By: #### A LT, TRIG, CHOL, AST ####[facility] [address] [place], [place] [address]Lashell Josephen SGPTon 10-12-2017 Alanine aminotransferase (ALT) 30 U/L Normal 9-52 [facility] Comment on above: Performed By: #### A LT, TRIG, CHOL, AST ####[facility] [address] [place], [place] [address]Lashell Josephen TRIGLYCERIDEon 10-12-2017 Triglyceride 171 mg/dL Normal 53-208 [facility] Comment on above: Performed By: #### A LT, TRIG, CHOL, AST ####[facility] [address] [place], [place] [address]Gerken Kathleen CBC AUTO DIFFon 06-19-2017 Basophils Auto #/vol (Bld) 0.0 103/ul Normal 0.0-0.1 [facility] Comment on above: Performed By: #### C BC ####[facility] [address] [place] [address] Kathleen Basophils/100 WBC Auto (Bld) 0.5 % Normal 0.2-2.0 [facility] Comment on above: Performed By: #### C BC ####[facility] [address] [place] [address] Kathleen Eosinophils 0.1 103/ul Normal 0.0-0.7 [facility] Comment on above: Performed By: #### C BC ####[facility] [address] [place] [address] Kathleen Eosinophils/100 leukocytes 0.8 % Critically low 0.9-7.0 [facility] Comment on above: Performed By: #### C BC ####[facility] [address] [place] [address]Gerken Kathleen Erythrocyte distribution width Auto Ratio (RBC) 13.3 % Normal 11.0-15.0 [facility] Comment on above: Performed By: #### C BC ####[facility] [address] [place], [place] [address]Gerken Kathleen Erythrocytes (RBC) 4.70 106/ul Normal 3.40-5.30 [facility] Comment on above: Performed By: #### C BC ####[facility] [address] [place], [place] [address]Gerken Kathleen Hematocrit (HCT) 38.3 % Normal 36.0-48.0 [facility] Comment on above: Performed By: #### C BC ####[facility] [address] [place] [address] Kathleen Hemoglobin mass conc (Bld) 13.0 g/dL Normal 12.0-16.0 [facility] Comment on above: Performed By: #### C BC ####[facility] [address] [place], [place] [address]Gerken Kathleen IG # 0.01 10e3/ul Normal 0.00-0.03 [facility] Comment on above: Performed By: #### C BC ####[facility] [address] [place] [address] Kathleen IG % 0.2 % Normal 0.0-0.5 [facility] Comment on above: Performed By: #### C BC ####[facility] [address] [place] [address] Kathleen Lymphocytes 2.2 103/ul Normal 1.2-3.8 [facility] Comment on above: Performed By: #### C BC ####[facility] [address] [place] [address] Kathleen Lymphocytes/100 leukocytes 36.4 % Normal 20.5-60.0 [facility] Comment on above: Performed By: #### C BC ####[facility] Cluc[address] Kathleen MANUAL DIFF REQ NO Normal [facility] Comment on above: Performed By: #### C BC ####[facility] [address] [place] [address] Kathleen MCH 27.7 pg Normal 26.7-34.0 [facility] Comment on above: Performed By: #### C BC ####[facility] F[address]fg[address] Kathleen MCHC mass conc (RBC) 33.9 g/dL Normal 29.9-35.2 [facility] Comment on above: Performed By: #### C BC ####[facility] [address] [place] [address] Kathleen MCV 81.5 fL Normal 79.1-95.6 [facility] Comment on above: Performed By: #### C BC ####[facility] [address] [place] [address] Kathleen Monocytes 0.4 103/ul Normal 0.3-0.8 [facility] Comment on above: Performed By: #### C BC ####[facility] [address] [place] [address] Kathleen Monocytes/100 leukocytes 6.5 % Normal 1.7-12.0 [facility] Comment on above: Performed By: #### C BC ####[facility] [address] [place] [address] Kathleen Neutrophils 3.4 103/ul Normal 1.4-6.5 [facility] Comment on above: Performed By: #### C BC ####[facility] [address] [place] [address] Kathleen Neutrophils/100 WBC Auto (Bld) 55.6 % Normal 43.0-75.0 [facility] Comment on above: Performed By: #### C BC ####[facility] [address] [place] [address] Kathleen Platelet mean volume (PMV) 9.4 fL Critically low 9.5-13.5 [facility] Comment on above: Performed By: #### C BC ####[facility] J[address]ac[address] Kathleen Platelets 297 103/ul Normal 150-450 [facility] Comment on above: Performed By: #### C BC ####[facility] Q[address]oojp[address]24 [address] Kathleen WBC (Leukocytes) 6.2 103/ul Normal 4.0-11.0 [facility] Comment on above: Performed By: #### C BC ####[facility] M[address]irhw[address] Kathleen CHOLESTEROL TOTALon 06-19-19 18 Cholesterol 223 mg/dL Normal 104-227 [facility] Comment on above: Performed By: #### A LT, AST, TRIG, CHOL ####[facility] F[address]ksvzi[address] Kathleen SGOTon 06-19-2017 Aspartate aminotransferase (AST) 30 U/L Normal 14-36 [facility] Comment on above: Performed By: #### A LT, AST, TRIG, CHOL ####[facility] T[address] Kathleen SGPTon 06-19-2017 Alanine aminotransferase (ALT) 30 U/L Normal 9-52 [facility] Comment on above: Performed By: #### A LT, AST, TRIG, CHOL ####[facility] Lmrtjvnxfc[address] Kathleen TRIGLYCERIDEon 06-19-2017 Triglyceride 163 mg/dL Normal 53-208 [facility] Comment on above: Performed By: #### A LT, AST, TRIG, CHOL ####[facility] E[address]bp[address] Vital Signs Date Time Vital Sign Value Performing Clinician Facility 07-28-2024 09:130500 Body mass index (BMI) [Ratio] 31.18 kg/m2 Ronan Zapata CNM Work Phone: [facility] 07-28-2024 09:13-0500 Body weight 79.83 kg Ronan Floro CNM Work Phone: [facility] 07-28-2024 09:13-0500 Diastolic blood pressure 70 mm[Hg] Ronan Floro CNM Work Phone: [facility] 07-28-2024 09:13-0500 Systolic blood pressure 110 mm[Hg] Ronan Floro CNM Work Phone: [facility] 07-20-2024 16:34-0500 Body mass index (BMI) [Ratio] 30.82 kg/m2 Ronan Floro CNM Work Phone: [facility] 07-20-2024 16:34-0500 Body weight 78.93 kg Ronan Floro CNM Work Phone: [facility] 07-06-2024 14:33-0500 Body mass index (BMI) [Ratio] 30.65 kg/m2 Ronan Floro CNM Work Phone: [facility] 07-06-2024 14:33-0500 Body weight 78.47 kg Ronan Floro CNM Work Phone: [facility] 07-06-2024 14:33-0500 Diastolic blood pressure 70 mm[Hg] Ronan Floro CNM Work Phone: [facility] 07-06-2024 14:33-0500 Systolic blood pressure 110 mm[Hg] Ronan Floro CNM Work Phone: [facility] 06-22-2024 14:21-0500 Body mass index (BMI) [Ratio] 30.11 kg/m2 Ronan Floro CNM Work Phone: [facility] 06-22-2024 14:21-0500 Body weight 77.11 kg Ronan Floro CNM Work Phone: [facility] 06-22-2024 14:21-0500 Diastolic blood pressure 60 mm[Hg] Ronan Floro CNM Work Phone: [facility] 06-22-2024 14:21-0500 Systolic blood pressure 110 mm[Hg] Ronan Floro CNM Work Phone: [facility] 06-04-2024 09:28-0500 Body mass index (BMI) [Ratio] 29.41 kg/m2 Ronan Floro CNM Work Phone: [facility] 06-04-2024 09:28-0500 Body weight 75.3 kg Ronan Floro CNM Work Phone: [facility] 06-04-2024 09:28-0500 Diastolic blood pressure 70 mm[Hg] Ronan Floro CNM Work Phone: [facility] 06-04-2024 09:28-0500 Systolic blood pressure 110 mm[Hg] Ronan Floro CNM Work Phone: [facility] 05-07-2024 10:59-0500 Body mass index (BMI) [Ratio] 28.7 kg/m2 Ronan Floro CNM Work Phone: [facility] 05-07-2024 10:59-0500 Body weight 73.48 kg Ronan Floro CNM Work Phone: [facility] 05-07-2024 10:59-0500 Diastolic blood pressure 70 mm[Hg] Ronan Floro CNM Work Phone: [facility] 05-07-2024 10:59-0500 Systolic blood pressure 120 mm[Hg] Ronan Floro CNM Work Phone: [facility] 04-06-2024 12:53-0400 Body mass index (BMI) [Ratio] 26.75 kg/m2 Ronan Floro CNM Work Phone: [facility] 04-06-2024 12:53-0400 Body weight 68.49 kg Ronan Floro CNM Work Phone: [facility] 04-06-2024 12:53-0400 Diastolic blood pressure 70 mm[Hg] Ronan Floro CNM Work Phone: [facility] 04-06-2024 12:53-0400 Systolic blood pressure 112 mm[Hg] Ronan Floro CNM Work Phone: [facility] 04-02-2024 13:06-0400 Body weight 67.68 kg Mariia Magallanes MD Work Phone: [facility] 04-02-2024 13:06-0400 Diastolic blood pressure 72 mm[Hg] Mariia Magallanes MD Work Phone: [facility] 04-02-2024 13:06-0400 Heart rate 80 /min aMriia Magallanes MD Work Phone: [facility] 04-02-2024 13:06-0400 Systolic blood pressure 107 mm[Hg] Mariia Magallanes MD Work Phone: [facility] 03-09-2024 16:02-0400 Body mass index (BMI) [Ratio] 26.39 kg/m2 Ronan Floro CNM Work Phone: [facility] 03-09-2024 16:02-0400 Body weight 67.59 kg Ronan Floro CNM Work Phone: [facility] 03-09-2024 16:02-0400 Diastolic blood pressure 70 mm[Hg] Ronan Floro CNM Work Phone: [facility] 03-09-2024 16:02-0400 Systolic blood pressure 110 mm[Hg] Ronan Floro CNM Work Phone: [facility] 02-10-2024 11:16-0400 Body mass index (BMI) [Ratio] 26.04 kg/m2 Ronan Floro CNM Work Phone: [facility] 02-10-2024 11:16-0400 Body weight 66.68 kg Ronan Floro CNM Work Phone: [facility] 02-10-2024 11:16-0400 Diastolic blood pressure 70 mm[Hg] Ronan Floro CNM Work Phone: [facility] 02-10-2024 11:16-0400 Systolic blood pressure 112 mm[Hg] Ronan Zapata CNM Work Phone: [facility] 01-09-2024 14:12-0400 Body mass index (BMI) [Ratio] 25.51 kg/m2 Ronan Zapata CNM Work Phone: [facility] 01-09-2024 14:12-0400 Body weight 65.32 kg Ronan Zapata CNM Work Phone: [facility] 07-13-2022 15:05-0500 Body height 160.02 cm Hayley Fultonault Other [employer] Other 07-13-2022 15:05-0500 Body mass index (BMI) [Ratio] 24.8 kg/m2 Hayley Moise Other [employer] Other 07-13-2022 15:05-0500 Body temperature 100.4 [degF] Hayley Moise Other [employer] Other 07-13-2022 15:05-0500 Body weight 63.5 kg Hayley Fultonault Other [employer] Other 07-13-2022 15:05-0500 Respiratory rate 18 /min Hayley Moise Other [employer] Other 07-13-2022 15:05-0500 SaO2% (BldA) [Mass fraction] 98 % Hayley Moise Other [employer] Other 04-30-2021 08:30-0500 Body temperature 98.1 [degF] Ronan Zapata UR COORDINATOR - CNM Work Phone: [facility] [employer] 04-30-2021 08:30-0500 Diastolic blood pressure 71 mm[Hg] Ronan Zapata UR COORDINATOR - CNM Work Phone: [employer] 04-30-2021 08:30-0500 Heart rate 79 /min Ronan Zapata UR COORDINATOR - CNM Work Phone: [facility] 04-30-2021 08:30-0500 Respiratory rate 16 /min Ronan Zapata UR COORDINATOR - CNM Work Phone: [facility] 04-30-2021 08:30-0500 Systolic blood pressure 111 mm[Hg] Ronan Zapata UR COORDINATOR - CNM Work Phone: [facility] 04-28-2021 10:25-0500 SaO2% (BldA) [Mass fraction] 98 % Ronan Zapata APRN - CNM Work Phone: [facility] 04-28-2021 05:40-0500 Body height 160 cm Ronan Zapata APRN - CNM Work Phone: [facility] 04-28-2021 05:40-0500 Body mass index (BMI) [Ratio] 27.1 kg/m2 Ronan Zapata APRN - CNM Work Phone: [facility] 04-28-2021 05:40-0500 Body weight 69.4 kg Ronan Zapata APRN - CNM Work Phone: [facility] Encounters Encounter Date Encounter Type Care Provider Facility Start: 08-06-2024 End: 08-06-2024 Bamboo flowsheet Ronan Caleb Castilloo CNM Work Phone: [facility] Start: 08-06-2024 End: 08-06-2024 Bamboo flowsheet Ronan Caleb Castilloo CNM Work Phone: [facility] Start: 08-06-2024 ambulatory RONAN Caleb CASTILLOO Not Lida ilable Start: 07-28-2024 End: 07-28-2024 Bamboo flowsheet Ronan Caleb Castilloo CNM Work Phone: [facility] Start: 07-28-2024 End: 07-28-2024 Bamboo flowsheet Ronan L Floro CNM Work Phone: [facility] Start: 07-28-2024 End: 07-28-2024 ambulatory RONAN L FLORO Not Available Start: 07-28-2024 End: 07-28-2024 Subsequent care visit Ronan L Floro CNM Work Phone: [facility] Comment on above: Encounter for superv ision of other normal , third trimester (Primary Dx); Large for dates Start: 07-20-2024 End: 07-20-2024 ambulatory RONAN L FLORO Not Available Start: 07-20-2024 End: 07-20-2024 Subsequent care visit Ronan L Floro CNM Work Phone: [facility] Comment on above: Encounter for superv ision of other normal , third trimester (Primary Dx); screening for streptococcus B; Large for dates Start: 07-16-2024 End: 07-16-2024 Clinisync Result Encounter Ronan L Floro CNM Work Phone: [facility] Unsolicited Start: 07-16-2024 End: 07-16-2024 Clinisync Result Encounter Ronan L Floro CNM Work Phone: [facility] Unsolicited Start: 07-13-2024 End: 07-13-2024 Telephone encounter Dian [...] Start: 05-29-2024 End: 05-29-2024 Telephone encounter Ronan L Floro CNM Work Phone: [facility] Start: 05-18-2024 End: 07-23-2024 Telephone encounter Dian Cohen MD Work Phone: [facility] Start: 05-07-2024 End: 05-07-2024 Bamboo flowsheet Ronan L Floro CNM Work Phone: [facility] Start: 05-07-2024 End: 05-07-2024 Bamboo flowsheet Ronan L Floro CNM Work Phone: [facility] Start: 05-07-2024 End: 05-07-2024 ambulatory RONAN ZAPATA Not Available Start: 05-07-2024 End: 05-07-2024 Subsequent care visit Ronan Zapata CNM Work Phone: [facility] Comment on above: Encounter for superv ision of other normal , second trimester (Primary Dx); Screening for diabetes mellitus; Screening for iron deficiency anemia; related condition in third trimester Start: 04-06-2024 End: 04-06-2024 Bamboo flowsheet Ronan Zapata CNM Work Phone: [facility] Start: 04-06-2024 End: 04-06-2024 Bamboo flowsheet Ronan Zapata CNM Work Phone: [facility] Start: 04-06-2024 End: 04-06-2024 Chart abstracting Scanning Provider External [facility] Start: 04-06-2024 End: 04-06-2024 flow sheet Ronan Zapata CNM Work Phone: [facility] Comment on above: Encounter for superv ision of other normal , second trimester (Primary Dx) Start: 04-06-2024 End: 04-06-2024 ambulatory RONAN ZAPATA Not Available Start: 04-02-2024 End: 04-02-2024 Office consultation new/estab patient 40 min Mariia Magallanes MD Work Phone: [facility] Comment on above: Encounter for suspec olivia anomaly ruled out (Primary Dx) Start: 04-02-2024 End: 04-02-2024 [facility] Start: 04-01-2024 End: 04-01-2024 Chart abstracting Mariia Magallanes MD Work Phone: [facility] Start: 04-01-2024 End: 04-01-2024 Telephone encounter Ronan Ellis Floro CNM Work Phone: [facility] Start: 03-30-2024 End: 03-30-2024 Chart abstracting Mariia Magallanes MD Work Phone: [facility] Start: 03-23-2024 End: 03-23-2024 ambulatory RONAN L FLORO Not Available Start: 03-09-2024 End: 03-09-2024 Subsequent care visit Ronan Caleb Castilloo CNM Work Phone: [facility] Start: 02-10-2024 End: 02-10-2024 ambulatory RONAN L FLORO Not Available Start: 02-10-2024 End: 02-10-2024 Subsequent care visit Ornan Caleb Floro CNM Work Phone: [facility] Comment on above: Encounter for superv ision of other normal , second trimester (Primary Dx); Encounter for supervision of other normal , first trimester Start: 01-09-2024 End: 07-25-2024 Initial care visit Ronan L Floro CNM Work Phone: [facility] Comment on above: Encounter for superv ision of other normal , first trimester (Primary Dx) Start: 01-09-2024 End: 01-09-2024 ambulatory RONAN ZAPATA Not Available Start: 07-13-2022 End: 07-13-2022 ambulatory Hayley Phipps Other [employer] Other Start: 07-13-2022 Office outpatient vi sit 15 minutes Hayley Phipps [facility] Start: 04-27-2021 End: 04-30-2021 Evaluation and management of inpatient RONAN ZAPATA [facility] Start: 04-27-2021 End: 04-30-2021 Evaluation and management of inpatient Ronan Zapata UR COORDINATOR - CNM Work Phone: [facility] Labor and Delivery Start: 10-08-2018 Patient encounter procedure Merlin Sainz Facility:[id number] Start: 05-26-2018 Patient encounter procedure Tatyana Baptiste Facility:[id number] Start: 03-05-2018 Patient encounter procedure Merlin Sainz Facility:[id number] Start: 02-18-2018 Patient encounter procedure Sonia Melo Facility:[id number] Start: 01-03-2018 Patient encounter procedure Tatyana [facility] Facility:[id number] Start: 10-12-2017 End: 10-13-2017 Ambulatory DOCTOR MISC Facility:[id number] Start: 06-19-2017 End: 06-20-2017 Ambulatory DOCTOR MISC Facility:[id number] Procedures Date Procedure Procedure Detail Performing Clinician Start: 07-16-2024 US OB GROWTH Ronan Zapata CNM Work Phone: Start: 03-25-2024 ULTRASOUND OFFICE Not I n System Ref Prov Start: 01-10-2024 CHLAMYDIA/GC BY PCR FABI SWAB Not In System Ref Prov Start: 01-10-2024 Drug scrn 1+ class nonchromo Not In System Ref Prov Start: 01-10-2024 Culture bacterial quanttative colony count urine Ronan Zapata CNM Work Phone: Start: 01-10-2024 DRUG TOX MONITORIGN 6 W/ CONF,URINE Ronan FELDMAN Work Phone: Start: 01-10-2024 URINALYSIS MICROSCOPIC Ronan FELDMAN Work Phone: Start: 01-09-2024 End: 01-09-2024 Antibody screen rbc each serum technique Ronan Zapata CN Work Phone: Start: 01-09-2024 End: 01-09-2024 Hemoglobin glycosylated a1c Ronan FELDMAN Work Phone: Start: 01-09-2024 End: 01-09-2024 Iaad ia hepatitis b surface antigen Ronan FELDMAN Work Phone: Start: 01-09-2024 TSH W/REFLEX TO FT4 Gal FELDMAN Work Phone: Start: 01-09-2024 Antibody screen Mariia Magallanes MD Work Phone: Start: 01-09-2024 HIV 1&2 AB/AG SCREEN (P24 AG) Not In System Ref Prov Start: 01-09-2024 TYPE AND SCREEN Not In System Ref Prov Start: 01-09-2024 ULTRASOUND OFFICE Not I n System Ref Prov Start: 04-27-2021 Blood count complete auto&auto difrntl wbc Ronan Zapata UR COORDINATOR - CN Work Phone: Start: 04-27-2021 Drug screen class list a Ronan Zapata UR COORDINATOR - CN Work Phone: Start: 04-06-2021 Antibody chlamydia Hist orical Provider Start: 04-06-2021 Chlamydia culture Amada Zapata UR COORDINATOR - CN Work Phone: Start: 04-06-2021 GBS, EXTERNAL RESULT Hi storical Provider Start: 10-05-2020 Antibody hiv-1&hiv-2 single result Historical Provider Start: 10-05-2020 Antibody screen Ronan Zapata UR COORDINATOR - CNM Work Phone: Start: 10-05-2020 Iaadiadoo neisseria gonorrhoeae Historical Provider Start: 05-26-2018 Follow-up visit Start: 03-05-2018 Follow-up visit Start: 02-18-2018 Follow-up visit Plan of Treatment Date Care Activity Detail Author Start: 01-24-2031 DTaP,Tdap and Td Vaccines (8 - Td or Tdap) DTaP,Tdap and Td Vaccines (8 - Td or Tdap) [facility] Start: 01-24-2031 DTaP/Tdap/Td vaccine (8 - Td or Tdap) DTaP/Tdap/Td vaccine (8 - Td or Tdap) [facility] Start: 04-02-2025 Tobacco Screening Tobacco Screening [facility] Start: 01-09-2025 Screening for Chlamy marcel trachomatis Chlamydia Screening [facility] Start: 08-06-2024 End: 08-06-2024 Patient encounter procedure 08/06/2024 11:30 AM EST Routine [facility] [address] [place] [address] Ronan Zapata, CNM [address] [place] [address] [facility] Start: 07-27-2024 End: 07-27-2024 Patient encounter procedure 07/27/2024 1:30 PM EST Routine [facility] [address] [facility] [place] [address] Ronan Zapata, CNM [address] [place] [address] [facility] Start: 07-20-2024 End: 07-20-2024 Patient encounter procedure 07/20/2024 4:30 PM EST Routine [facility] [address] [facility] [place] [address] Ronan Zapata, CNM [address] [place] [address] [facility] Start: 07-20-2024 End: 07-20-2025 STREPTOCCOUS, GROUP B CULTURE STREPTOCCOUS, GROUP B CULTURE Lab Routine screening for streptococcus B Expected: 07/20/2024 (Approximate), Expires: 07/20/2025 [facility] Work Phone: Comment on above: Expected: 07/20/2024 (Approximate), Expires: 07/20/2025 Start: 07-06-2024 End: 07-06-2024 Patient encounter procedure 07/06/2024 2:30 PM EST Routine [facility] [address] [facility] [place] [id number] Ronan Zapata, CNM [address] [place] [address] [facility] Start: 06-22-2024 End: 06-22-2024 Patient encounter procedure 06/22/2024 2:00 PM EST Routine [facility] [address] [facility] [place] [address] Ronan Zapata, CNM [address] [place] [address] [facility] Start: 06-04-2024 End: 06-04-2024 ambulatory 06/04/2024 3:00 PM EST Initial [facility] [address] [facility] [place] [address] Ronan Zapata, CNM [address] [place] [address] [facility] Start: 06-04-2024 End: 06-04-2024 Patient encounter procedure 06/04/2024 3:00 PM EST Routine [facility] [address] [facility] [place] [address] Ronan Zapata, CNM [address] [place] [address] [facility] Start: 06-04-2024 End: 06-04-2025 GLUCOSE TOLERANCE TEST, GESTATIONAL,4SPEC(100G) GLUCOSE TOLERANCE TEST, GESTATIONAL,4SPEC(100G) Lab Routine Elevated glucose tolerance test Expected: 06/04/2024 (Approximate), Expires: 06/04/2025 [facility] Work Phone: Comment on above: Expected: 06/04/2024 (Approximate), Expires: 06/04/2025 Start: 05-07-2024 End: 05-07-2025 CBC panel - Blood by Automated count CBC Lab Routine Screening for iron deficiency anemia Expected: 05/07/2024 (Approximate), Expires: 05/07/2025 [facility] Comment on above: Expected: 05/07/2024 (Approximate), Expires: 05/07/2025 Start: 05-07-2024 End: 05-07-2025 GLUCOSE, GESTATIONAL SCREEN (50G)-135 CUTOFF GLUCOSE, GESTATIONAL SCREEN (50G)-135 CUTOFF Lab Routine Screening for diabetes mellitus Expected: 05/07/2024 (Approximate), Expires: 05/07/2025 [facility] Work Phone: Comment on above: Expected: 05/07/2024 (Approximate), Expires: 05/07/2025 Start: 05-07-2024 End: 05-07-2025 US for US OB follow up transabdominal approach Imaging Routine related condition in third trimester Expected: 05/07/2024, Expires: 05/07/2025 [facility] Comment on above: Expected: 05/07/2024 , Expires: 05/07/2025 Start: 05-04-2024 End: 05-04-2024 Patient encounter procedure 05/04/2024 2:30 PM EST Routine [facility] [address] [place] [address] Ronan Zapata CNM [address] [place] [address] [facility] Start: 04-06-2024 End: 04-06-2024 Patient encounter procedure [facility] Comment on above: Arrived Start: 04-02-2024 End: 04-02-2024 Patient encounter procedure 04/02/2024 1:30 PM EDT Office Visit [facility] [address] [place] [address] Mariia Magallanes MD [address] [place] [address] [facility] Start: 04-02-2024 End: 04-02-2024 Patient encounter procedure 04/02/2024 11:30 AM EDT Appointment [facility] [address] [place] [phone] [facility] Start: 03-23-2024 End: 03-23-2024 Professional / ancillary services management 03/23/2024 2:15 PM EDT Ancillary Procedure [facility] [address] [address] [facility] Start: 03-09-2024 End: 03-09-2024 [...] EDT Procedure Visit [facility] [address] [place] [address] Ronan Zapata, GASTONM [address] [place], [place] [id number] [facility] Start: 02-16-2024 Influenza vaccination N [facility] Start: 02-06-2024 End: 02-06-2024 Patient encounter procedure 02/06/2024 4:00 PM EDT Routine [facility] [address] [place] [id number] Ronan Zapata CNM [address] [place], [place] [id number] [facility] Start: 04-06-2022 Screening for Chlamy marcel trachomatis Chlamydia screen [facility] Start: 2021 Screening for malign ant neoplasm of cervix Pap Smear [facility] Start: 02-15-2021 Influenza vaccination Flu vaccine (# 1) [facility] Start: 10-26-2019 DTaP,Tdap and Td Vaccines (1 - Tdap) DTaP,Tdap and Td Vaccines (1 - Tdap) [facility] Start: 2018 Adult BMI Screening Adult BMI Screen ing [facility] Start: 2012 Depression Screening Depression Scre ening [facility] Start: 2012 Tobacco Screening Tobacco Screening [facility] Start: 10-26-2011 HPV vaccine (1 - 2-d ose series) HPV vaccine (1 - 2-dose series) [facility] Start: 2000 Hepatitis C screening Hepatitis C sc reen [facility] Start: 2000 Screening for Chlamy marcel trachomatis Chlamydia Screening [facility] Immunizations Immunization Date Immunization Notes Care Provider Fa cility 04-04-2023 influenza virus vaccine, unspecified formulation Ronan Zapata [facility] Work Phone: [facility] 04-28-2021 diphtheria, tetanus toxoids and acellular pertussis vaccine, unspecified formulation Ronan Jodi UR COORDINATOR - CN Work Phone: [facility] Work Phone: 04-28-2021 measles, mumps and rubella virus vaccine Ronan Bhavanio UR COORDINATOR - CNM Work Phone: [facility] Work Phone: Payers Date Payer Category Payer Private Health Insurance [id number] 2022 Unknown FRONTPATH FRONTP ATH [id number] 2022-Present [phone] [address] [place] [address] [id number] 2021 Unknown [id number] [id number]. [id number] 2020 Unknown [id number] 2000 Unknown [id number] 2.16.840.1.766663.3.579.2. 173 2000 Unknown [id number] 2.16.840.1.589047.3.579.2. 128 2000 Unknown [id number] 2.16.840.1.238787.3.579.2. 128 2000 Unknown [id number] 2.16.840.1.769771.3.579.2. 1258 2000 Unknown [id number] 2.16.840.1.760325.3.579.2. 1258 2000 Unknown [id number] 2.16.840.1.560696.3.579.2. 1258 2000 Unknown [id number] 2.16.840.1.695986.3.579.2. 1258 2000 Unknown [id number] 2.16.840.1.830816.3.579.2. 1258 2000 Unknown [id number] 2.16.840.1.905784.3.579.2. 1258 2000 Unknown [id number] 2.16.840.1.434573.3.579.2. 1258 2000 Unknown [id number] 2.16.840.1.971432.3.579.2. 9 2000 Unknown [id number] 2.16.840.1.590485.3.579.2. 1258 2000 Unknown [id number] 2.16.840.1.783718.3.579.2. 1258 2000 Unknown [id number] 2.16.840.1.734003.3.579.2. 1258 2000 Unknown [id number] 2.16.840.1.173546.3.579.2. 1258 2000 Unknown [id number] 2.16.840.1.850417.3.579.2. 1258 2000 Unknown [id number] 2.16.840.1.000609.3.579.2. 9 1959 Unknown [id number] [employer] Other (unspecified) [id number]. [id number] Unknown [id number] 2.16.840.1.424243.3.579.2. 356 Unknown [id number] 2.16.840.1.934266.3.579.2. 356 Unknown [id number] 2.16.840.1.137000.3.579.2. 356 Unknown [id number] 2.16840.1.285732.3.579.2. 356 Unknown [id number] 2.16840.1.392369.3.579.2. 356 Unknown [id number] 2.16.840.1.972907.19 Unknown [id number] 2.16.840.1.580834.19 Social History Date Type Detail Facility Start: 04-27-2021 End: 05-28-2023 Tobacco smoking status AKIS Never smoked tobacco [facility] Phone: Start: 04-28-2021 Alcohol intake Lifetime non-d trish (finding) [facility] Phone: Start: 04-27-2021 History SDOH Alcohol Frequency 1 [facility] Phone: Start: 2000 Sex Assigned At Not on file [facility] Work Phone: Exposure to SARS-CoV-2 (event) Not sure [facility] Phone: Start: 01-09-2024 End: 04-02-2024 Sex Assigned At [facility] [employer] Other Start: 05-28-2023 End: 04-01-2024 Tobacco use and exposure Smokeless tobacco non-user [facility] Start: 01-09-2024 End: 04-02-2024 Alcoholic beverage intake Ex-drinker (finding) [facility] Start: 01-09-2024 End: 04-02-2024 History of Social function [facility] Start: 05-28-2023 Alcohol Comment caffeine: none [facility] Start: 11-21-2023 [facility] Start: 06-18-2023 Gender identity Identifies as female gender (finding) [facility] Tobacco smoking status NHIS Tobacco smoking consumption unknown [facility] Start: 03-27-2024 Sex Female (finding) [facility] Within the past 12 months we worried whether our food would run out before we got money to buy more. Never True [facility] Clinical Notes 04-29-2021 to 07-28-2024 Ronan Zapata CNM - 07/28/2024 9:00 AM Jung Zapata CNM - 07/20/2024 4:30 PM ESTTelephone Encounter - Rachel Raines MA - 07/13/2024 3:09 PM EST Note Date & Type Note Facility 07-28-2024 History of Presen t illness Narrative Subjective No chief complaint on file. Mel Hester is a 23 y.o. at 37w5d with a working estimated date of delivery [...] is complicated by: Objective Physical Exam weight: 176 lb Expected Total Weight Gain: 15 lb-25 lb Pregravid BMI: 25.51 BP: 110/70 Urine protein-negative Urine glucose-negative Assessment/Plan Diagnoses and all orders for this visit: Encounter for supervision of other normal , third trimester Large for dates Continue vitamin. Labs reviewed. GBS taken. Expected mode of delivery Follow up in 1 week for a routine visit. documented in this encounter [facility] 07-20-2024 History of Presen t illness Narrative Subjective No chief complaint on file. Mel Hester is a 23 y.o. at 36w4d with a working estimated date of delivery [...] is complicated by: Objective Physical Exam weight: 174 lb Expected Total Weight Gain: 15 lb-25 lb Pregravid BMI: 25.51 Urine protein-negative Urine glucose-negative Assessment/Plan Diagnoses and all orders for this visit: Encounter for supervision of other normal , third trimester screening for streptococcus B - STREPTOCCOUS, GROUP B CULTURE; Future Large for dates Continue vitamin. Labs reviewed. GBS taken today Expected mode of delivery Follow up in 1 week for a routine visit. documented in this encounter [facility] 07-13-2024 Telephone encount er Note Spoke with pt [facility] 07-13-2024 Miscellaneous Notes Formattin g of this note might be different from the original. Spoke with pt Hi, my name is Prerna Hester. I am calling to talk to [facility]'s office. If you can give me a call back at [phone]. Thanks. documented in this encounter [facility] 07-13-2024 Telephone encount er Note Hi, my name is Prerna Hester. I am calling to talk to F[facility]'s office. If you can give me a call back at [phone]. Thanks. [facility] 07-06-2024 History of Presen t illness Narrative Subjective No chief complaint on file. Mel Hester is a 23 y.o. at 34w4d with [...] a routine visit. documented in this encounter [facility] 06-22-2024 History of Presen t illness Narrative Subjective No chief complaint on file. Mel Hester is a 23 y.o. at 32w4d with [...] a routine visit. documented in this encounter [facility] 06-04-2024 History of Presen t illness Narrative Subjective No chief complaint on file. Mel Hester is a 23 y.o. at 30w0d with [...] 04/28/21 Vag-Spont Her is complicated by: saw [facility] early for rule out anasarca and hydrops. Normal per [facility] Objective Physical Exam weight: 166 lb [...] a routine visit. documented in this encounter [facility]29[facility]2024 [facility] Pt would like a callback concerning moving up her appointment to an earlier time. Please return her call. She is scheduled for at 3pm [facility] 05-29-2024 Miscellaneous Notes Formattin g of this note might be different from the original. Pt would like a callback concerning moving up her appointment to an earlier time. Please return her call. She is scheduled for at 3pm documented in this encounter [facility] 05-19-2024 [facility] Gal spoke with pt [facility] 05-19-2024 Miscellaneous Notes Formattin g of this note might be different from the original. Gal spoke with pt Pt asking for calll to clarify US questions documented in this encounter [facility] 05-18-2024 Telephone encount er Note Pt asking for calll to clarify US questions [facility] 05-07-2024 History of Presen t illness Narrative Subjective No chief complaint on file. Mel Hester is a 23 y.o. at 26w0d with [...] a routine visit. documented in this encounter [facility] 04-06-2024 History of Presen t illness Narrative Subjective No chief complaint on file. Mel Hester is a 23 y.o. at 21w4d with [...] from 20 week US . Went to [facility] and received normal report. Ruled out anasarca and hydrops. [facility] with patient and she states they [...] a routine visit. documented in this encounter [facility] 04-02-2024 History of Presen t illness Narrative [...] no Have you been seen here at [facility] in a previous ? no Recent ER visits or hospitalizations? no Bring blood sugar log or meter with you today? (Please bring them with you for every visit at [facility]) n/a Flu vaccine (Apr-August)? no Any concerns that you would like me to mention to the provider today? no REASON FOR CONSULTATION: Suspected anomaly ruled. HISTORY OF PRESENT ILLNESS: Mel Hester is a pleasant 23 y.o. G to [...] Known Allergies CURRENT MEDICATIONS: Current Outpatient Medications: [id number] acid ( 19) 29 mg iron- 1 [...] and the other consultants, we search on Pro[facility] and all the available care everywhere epic I did review all the imaging studies of the patient available on EMR, ordered by the primary care physician and the other independent consultant HABITS: Patient activity no restrictions, diet [...] patient is in complete care of her junior accountant bookkeeper. Patient does not have any future appointment scheduled with us. Thank you for allowing me to participate in Mel Hester . If there any questions please do not hesitate to contact us. Sincerely, MARIIA MAGALLANES MD documented in this encounter [facility] 04-01-2024 Telephone encount er Note Call Allen you feteal med. She needs any test and stress-test faxed over - she may have an Amnio tomorrow - Call Allen at [phone] [facility] 04-01-2024 Miscellaneous Notes Formattin g of this note might be different from the original. Call Allen w feteal med. She needs any test and stress-test faxed over - she may have an Amnio tomorrow - Call Allen at [phone] documented in this encounter [facility] 03-09-2024 History of Presen t illness Narrative Subjective No chief complaint on file. Mel Hester is a 23 y.o. at 17w4d with [...] a routine visit. documented in this encounter [facility] 02-10-2024 History of Presen t illness Narrative Subjective No chief complaint on file. Mel Hester is a 23 y.o. at 13w4d with [...] a routine visit. documented in this encounter [facility] 01-09-2024 History of Presen t illness Narrative Subjective Mel Hester is a 23 y.o. at 12w5d with [...] also given office phone number and [facility] number to call in case of an emergency or after hours needs. PVU and all questions answered. We did discuss place of delivery. Patient should plan to go to [facility] for all services unless an emergency and they need to go to the closest ER. We can make other arrangements possibly if patient would like to deliver at another facility but I did explain I am now at [facility] 100% of the time and would like to do all deliveries there. documented in this encounter [facility] 07-13-2022 Evaluation note Encounter Date Diagnosis Assessment [...] primary care provider to discuss antibiotic therapy [employer] Other 11-14-2021 Hospital course Narrative* CARMEN Maria [...] negative Final HIV: No results found for: [id number] Results for orders placed or performed during [...] # 1.90 1.20 - 5.20 k/uL Absolute Bland # 0.75 0.10 - 1.40 k/uL Absolute [...] 2 and 6 weeks documented [facility] this [facility] Work Phone: 1(311) 449-106511-14-2021 History of Present illness Narrative* Zayda Dejesus APRN - KRISTIN - 04/30/2021 10:34 AM EST Department of [...] order discontinued via verbal order. * Zayda Laurent Oleg, UR COORDINATOR - CNM - 04/29/2021 6:51 AM EST Department of Obstetrics and Gynecology Labor and Delivery Post Progress Note SUBJECTIVE: 1st day , s/p , denies c/o OBJECTIVE: Vitals: BP 112/68 Pulse 82 Temp 98.6 F (37 C) Resp 16 Ht 5' 3 (1.6 m) Wt 153 lb (69.4 kg) DsF549% Unknown BMI 27.10 kg/m Patient Vitals for [...] 115/61 81 04/28/21 1117 (!) 107/56 66 04/28/21 1047 122/66 69 04/28/21 1036 97.9 F (36.6 C) Oral 11/12/21 1025 98 % 11/12/21 1020 98 % 11/12/21 1018 71 11/12/21 1017 (!) 86 % 11/12/21 1015 105/61 16 94 % 11/12/21 1010 93 % 11/12/21 1005 93 % 11/12/21 1000 93 % 11/12/21 0955 93 % 11/12/21 0950 94 % 11/12/21 0946 112/67 67 /12/21 0945 94 % 11/12/21 0940 95 % [...] 108/71 99 % 11/12/21 0700 99 % 11/12/21 0655 99 % ABDOMEN: normal shape, position [...] EFM continuously assessed. Vaginal delivery of viable .RN remained at bedside throughout pushing. EFM continuously [...] Finley RN - 04/27/2021 9:45 PM EST Eshter Zapata CNM called and notified of 4 [...] bed and EFM applied documented in this [facility] [employer] Work Phone: 1(468) 253-584211-13-2021 Hospital Discharge instructions* Instructions* Mari Suero RN - 04/29/2021 Follow-up with your OB doctor as specified. [facility] OB Department phone: Gal Zapata, MSN, UR COORDINATOR, CNM [place] [address] DIET Eat a well balanced diet focusing on foods high in fiber and protein. Drink plenty of fluids especially water. To avoid constipation you may take a mild stool softener as recommended by your doctor or executive administrative assistant. ACTIVITY Gradually increase your activity. Resume exercise regimen only after advice by your doctor or executive administrative assistant. Avoid lifting anything heavier than a gallon of milk for SIX weeks. Avoid driving until your doctor or executive administrative assistant has given their approval. Rise slowly from [...] have thoughts of harming yourself or your . If infant will not stop crying, contact another adult for help or place infant in their crib on their back and take a break. NEVER shake your . BLEEDING Vaginal bleeding will decrease in amount [...] medications as recommended by your doctor or executive administrative assistant for pain If you develop a warm, red, tender area on your breast or develop a fever contact your OB provider. For moms: If you become engorged, feeding may be more difficult or painful for 1-2 days. You may find it helpful to hand express some milk so that the infant can latch on more easily. While , continue to take your vitamins as directed by your doctor or executive administrative assistant. Refer to the booklet in the folder/binder for more information. If you feel you need more assistance or have questions, please call Amanda Kwok IBCLC, office 365 consultant, at or the OB department to [...] area in your calf. [facility] Phone: evaluation note* Diagnosis Term Normal delivery documented in this encounter [employer] Phone: evaluation note* Diagnosis Encounter for supervision of other [...] for dates documented [facility] Diagnosis Encounter for supervision of other normal , third trimester- Primary screening for streptococcus B screening for Streptococcus B Large for dates documented [facility]* Diagnosis Encounter for suspected anomaly ruled out- Primary [facility] Narrative - Reported* Type Description Date Surgical History tonsillectomy [employer] Other InstructionsNot on filedocumented in this encounter [facility]ructionsNot on filedocumented in this encounter [facility] Summary Purpose Family History No Family History Records FoundNo Family History Records FoundNo Family History Records FoundNo Family History Records FoundNo Family History Records FoundNo Family History Records Found Advance Directives No Advanced Directives Records FoundLatest Code Status on File Code Status Date Activated Date Inactivated Comments Full Code 04/28/2021 1:45 PM Full Code 04/27/2021 8:22 PM 04/28/2021 1:45 PM Reason for Referral Specialty Diagnoses / Procedures Referred By Leif sheppard Referred To Contact Obstetrics and Gynecology Diagnoses Encounter for supervision of other normal , first trimester Procedures CO OFFICE/OUTPATIENT [facility] 60 MINUTES Ronan Zapata, KRISTIN [address] [place] [address] Ronan Zapata CNM [address] [place] [address] Referral ID Status Reason Start Date Expiration Date Visits Requested Visits Authorized [id number] Pending Review Specialty Services Required 02/04/2024 08/02/2024 1 1 Additional Source Comments INFORMATION SOURCE (unrecogn ized section and content) DATE CREATED AUTHOR 12/05/2017 [facility] DATE CREATED AUTHOR AUTHOR'S ORGANIZ ATION 05/28/2018 [facility] DATE CREATED AUTHOR AUTHOR'S ORGANIZ ATION 10/09/2018 [facility] DATE CREATED AUTHOR AUTHOR'S ORGANIZ ATION 05/04/2021 [facility] DATE CREATED AUTHOR AUTHOR'S ORGANIZ ATION 04/05/2024 [facility] DATE CREATED AUTHOR AUTHOR'S ORGANIZ ATION 08/08/2024 [facility] dical Specialists EPIC Reason for Visit (unrecogniz ed section and content) Reason Comments Scheduled Induction Specialty Diagnoses / Procedures Referred By Contac t Referred To Contact Diagnoses Term Ronan Zapata APRN - CNM [address] [place] [address] [facility] Referral ID Status Reason Start Date Expiration Date Visits Re quested Visits Authorized [id number] 1 1 Specialty Diagnoses / Procedures Referred By Contac t Referred To Contact Obstetrics and Gynecology Diagnoses Encounter for supervision of other normal , first trimester Procedures CO OFFICE/OUTPATIENT [facility] MDM 60 MINUTES Ronan Zapata, CNM [address] [place] [address] Ronan Zapata, CNM [address] [place] [address] Referral ID Status Reason Start Date Expiration Date V isits Requested Visits Authorized [id number] Closed Specialty Services Required 02/04/2024 08/02/2024 1 1 Reason Comments Possible Body Wall edema Possible Hydrops Scheduled Active and Recently Administ ered Medications [...] - Provider: Corinne Redd RN - Reason: Other)221 (Due) 0839 (Not Given - Provider: Chantel Walter RN - Reason: Patient/family refused)1415 (Due)221 (Due) measles, mumps & rubella vaccine (MMR) [...] and Delivery 0106 (Given - Provider: Rachel Finley, FABBY)0606 (Held - Provider: Bibi Mcdermott RN - Reason: Other - Comment: Directed to hold med by Esther Zapata CNM.)0900 (Canceled Entry - Provider: Bibi Mcdermott RN)1300 (Due) ytkaogx-hoqcfc-ortfk pertussis (BOOSTRIX) injection 0.5 mL 0.5 mL, [...] 0456 (Rate/Dose Change - Provider: Bibi Mcdermott, RN)0502 (New Bag - Provider: Daphnie Gonzalez RN)0525 (Rate/Dose Change - Provider: Bibi Mcdermott RN - Comment: epidural bolus)0533 (NoRateChange - Provider: Allie Edwards, UR COORDINATOR - BUYER LIAISON)0622 (New Bag - Provider: Bibi Mcdermott RN)1459 [...] every 2-3 minutes with cervical changes or Charenton units (MVU) greater than 200 in a [...] (38 C) or pain 1-10, Starting on Sat04/28/21 at 1345, Maximum dose of acetaminophen is [...] (166 mL/hr), IntraVENous, PRN, Bleeding, Starting on Marisol 04/27/21 at 2020, For 1 dose, For Post Use Only. Give after delivery of placenta. Following Bolus from bag administration, reduce the rate to 166 mL/hr and administer remaining bag, Post Delivery 1142 (Rate/Dose Change - Provider: Mari Suero RN)1202 (Rate/Dose Change - Provider: Mari Suero RN)1328 (Stopped - Provider: Mari Suero RN) Care Teams (unrecognized sec tion and content) Neuroscience Specialist Relationship Specialty Start Date End Date Dian Cohen MD [address] [place] [address] PCP - General Family Medicine 10/23/22 Neuroscience Specialist Relationship Specialty Start Date End Date Dian Cohen MD [address] [place] [address] PCP - General Family Medicine 10/23/22 Neuroscience Specialist Relationship Specialty Start Date End Date Dian Cohen MD [address] [facility] [place] [address] PCP - General Family Medicine 10/23/22 Neuroscience Specialist Relationship Specialty Start Date End Date Dian Cohen MD [address] [facility] [place] [address] PCP - General Family Medicine 10/23/22 Neuroscience Specialist Relationship Specialty Start Date End Date Dian Cohen MD [address] [facility] [place] [address] PCP - General Family Medicine 10/23/22 Neuroscience Specialist Relationship Specialty Start Date End Date Dian Cohen MD [address] [place] [address] PCP - General Family Medicine 10/23/22 Neuroscience Specialist Relationship Specialty Start Date End Date Dian Cohen MD [address] [place] [address] PCP - General Family Medicine 10/23/22 Neuroscience Specialist Relationship Specialty Start Date End Date Dian Cohen MD [address] [place] [address] PCP - General Family Medicine 10/23/22 Neuroscience Specialist Relationship Specialty Start Date End Date Dian Cohen MD [address] [place] [address] PCP - General Family Medicine 10/23/22 Neuroscience Specialist Relationship Specialty Start Date End Date Dian Cohen MD [address] [place] [address] PCP - General Family Medicine 10/23/22 Neuroscience Specialist Relationship Specialty Start Date End Date Dian Cohen MD [address] [facility] [place] [address] PCP - General Family Medicine 10/23/22 Neuroscience Specialist Relationship Specialty Start Date End Date Dian Cohen MD [address] [facility] [place] [address] PCP - General Family Medicine 10/23/22 FOR [...] BE BASED ON THE PRIMARY CLINICAL RECORDS. [facility]. provides no warranty or guarantee of the accuracy or completeness of information in this document.
[2024-08-09] MEDS: DINOPROSTONE 10 MG VAG INSERT.ER VAGINAL (19:59)
[2024-08-09 20:07] LABS: Hematocrit 32.5 % (36.0-48.0); Mean Corpuscular HGB Conc 33.8 g/dL (29.9-35.2); Mean Corpuscular Volume 85.8 fL (81.0-99.0); Mean Platelet Volume 9.7 fL (9.5-13.5); Platelet Count 301 10^3/uL (150-450); Red Blood Count 3.79 10^6/uL (4.20-5.40); Red Cell Distribution Width 14.6 % (11.0-15.0); White Blood Count 10.2 10^3/uL (4.0-11.0)
[2024-08-09 20:19] LABS: Amphetamine Screen Urine NEGATIVE (NEGATIVE); Barbiturates Screen Urine NEGATIVE (NEGATIVE); Benzodiazepines Screen Urine NEGATIVE (NEGATIVE); Buprenorphine Screen Urine NEGATIVE (NEGATIVE); Cannabinoid Screen Urine NEGATIVE (NEGATIVE); Cocaine Screen Urine NEGATIVE (NEGATIVE); Methadone Screen Urine NEGATIVE (NEGATIVE); Methamphetamines Screen Urine NEGATIVE (NEGATIVE); Opiate Screen Urine NEGATIVE (NEGATIVE); Oxycodone Screen Urine NEGATIVE (NEGATIVE); Phencyclidine Screen Urine NEGATIVE (NEGATIVE); Tricyclic Antidepressant Urine NEGATIVE (NEGATIVE)
[2024-08-10] VITALS (58 sets, daily range): BP systolic 72–122; BP diastolic 35–89; PULSE 65–110; TEMP 36.4–37
[2024-08-10] MEDS: LACTATED RINGER'S SOLUTION 1,000 ML 125 ML IV ×3 (01:22→04:39)
[2024-08-10] MEDS: ROPIVACAINE HCL/PF 400 MG/200 ML PREMIX 8 MG EPIDURAL (02:40)
[2024-08-10] MEDS: LIDOCAINE VISCOUS 2% 15 ML SOLUTION 5 ML TOPICAL (05:40)
[2024-08-10] MEDS: OXYTOCIN/0.9 % SODIUM CHLORIDE 20 UNITS/1,000 ML PLAST..BAG 125 UNIT IV (06:10)
--- NOTE | 2024-08-10 06:38 | PM.OBPRCVD ---
Procedure Procedure: Intrapartal events: None Induction method: other (cervidil cervical ripening ) Delivery monitor: external FHT and external uterine Route of delivery: Episiotomy Description: none L&D Laceration Description: none Estimated blood loss (mL): 250 Anesthesia type: Epidural Disposition: no change Infant Delivery date: 08/10/24 Gender: male presentation: vertex Placental delivery description: Spontaneous cord description: Loose and Around Body x2 heart rate - 1 minute: 100 bpm or Greater respiratory effort - 1 minute: Slow Respiration/Weak Cry muscle tone - 1 minute: Active Movement reflex response - 1 minute: Prompt Response color - 1 minute: Bluish Hands or Feet total score - 1 minute: 8 heart rate - 5 minute: 100 bpm or Greater respiratory effort - 5 minute: Spontaneous/Strong Cry muscle tone - 5 minute: Active Movement reflex response - 5 minute: Prompt Response color - 5 minute: Bluish Hands or Feet total score - 5 minute: 9
--- NOTE | 2024-08-10 06:40 | P.OBHP_ITS ---
OB - H&P: HPI History of Present Illness Chief complaint: induction : 2 Para: 1 Indications for induction: other (elective ) History of Present Dating criteria: LMP confirmed by 1st trimester US care: good care Ultrasounds: normal 1st trimester US and normal mid trimester US Medical complications OB: none Labs Blood type: A (+) positive Rubella: immune RPR/VDLR: nonreactive GBS status: negative HBsAG: negative Review of Systems ROS Status of ROS: 10 or more systems reviewed and unremarkable except as noted in history and below PFSH PFS Medical History (Updated 08/10/24 @ 06:46 by RONAN KOWALSKI APRN, KRISTIN) HPV (human papilloma virus) infection ?B97.7 - Papillomavirus as the cause of diseases classified elsewhere (ICD- 10) Surgical History (Updated 08/09/24 @ 21:52 by Myranda Garnica) [place] teeth extracted ?K08.409 - Partial loss of teeth, unspecified cause, unspecified class (ICD- 10) History of tonsillectomy ?Z90.89 - Acquired absence of other organs (ICD-10) Family History (Updated 08/09/24 @ 21:53 by Myranda Garnica) Grandfather Family history of cancer Social History (Updated 08/09/24 @ 21:54 by Myranda Garnica) Within the past year, how often did you have a drink containing alcohol: never Score interpretation: A score less than 3 is consistent with normal alcohol consumption. Smoking status: Never smoker Non-prescribed substance use: denies use Highest level of school completed/degree received: Bachelor's degree Are you now , , , , never or living with a partner: living with partner Little interest or pleasure in doing things: not at all Feeling down, depressed, or hopeless: not at all Feel stressed/tense/nervous/anxious/difficulty sleeping: not at all Do you think of yourself as: straight/heterosexual Gender Identity: female Meds Home Medications and Allergies Home Medications ?Medication ?Instructions ?Recorded ?Confirmed ?Type yukbohar-sjk-Ef-FA 1 mg 1 tab PO DAILY 08/09/24 08/09/24 History tablet Allergies Allergy/AdvReac Type Severity Reaction Status Date / Time No Known Drug Allergies Allergy Verified 08/09/24 21:49 Exam Constitutional Vital Signs, click to edit/add: Last Vital Signs Temp 98.6 F 08/10/24 04:11 Pulse 83 08/10/24 06:29 Resp 16 08/10/24 04:11 BP 111/71 08/10/24 06:29 O2 Del Method Room Air 08/09/24 23:44 Documenting provider has reviewed patient's vital signs: yes Common normals: no apparent distress, average body habitus, oriented x3, no limitations, healthy appearing, alert and well nourished General appearance: cooperative, comfortable and well kempt Orientation/consciousness: Yes awake, Yes oriented to person, Yes oriented to place and Yes oriented to time HENMT Common normals: normocephalic Eye Common normals: EOMs intact bilaterally Neck & C-Spine Common normals: full ROM and no lymphadenopathy General: normal visual inspection Lymph Lymphatic: no lymphadenopathy noted Chest Common normals: inspection of chest normal Respiratory Common normals: normal respiratory effort, no retractions, no use of accessory muscles, clear to auscultation bilaterally and percussion normal Effort & inspection: able to speak in complete sentences Auscultation: clear to auscultation bilaterally Cardio Common normals: regular rate Rate: regular rate Rhythm: regular rhythm GI Common normals: Normal to inspection, nondistended, normoactive bowel sounds present Inspection: normal to inspection Auscultation: normoactive bowel sounds Palpation: soft Percussion: normal to percussion Common normals: no CVA tenderness Back & Pelvis Common normals: no CVA tenderness Lumbar spine/lower back: normal to inspection Extremity Common normals: normal to inspection Neuro Common normals: oriented x3 Sensorium/orientation: awake, alert, oriented to person, oriented to place and oriented to time Psych Common normals: mental status grossly normal, thought process normal, cooperative, affect normal, speech normal, activity/motor behavior normal, denies hallucinations, denies homicidal ideation and denies suicidal ideation Attitude: calm Activity/motor behavior: appropriate eye contact Speech: normal speech Thought content: normal thought content Results Labs Labs: Short CBC 08/09/24 Range/Units 19:45 WBC 10.2 (4.0-11.0) 10^3/uL Hgb 11.0 L (12.0-16.0) g/dL Hct 32.5 L (36.0-48.0) % Plt Count 301 (150-450) 10^3/uL OB - A/P Assessment and Plan (1) Term : Plan admit to labor and delivery for elective induction of labor Urinary Catheter Management Urinary Catheter Management Urethral: Cath placed during this visit: no
--- NOTE | 2024-08-10 08:51 | PC.NURSE ---
epidural taken out of back at this time with intact tip. patient tolerated well.
[2024-08-10] MEDS: IBUPROFEN 400 MG TABLET 800 MG PO ×2 (09:45→18:11)
--- NOTE | 2024-08-10 10:09 | PC.NURSE ---
RN educates patient to call RN in for next latch for breast feeding so RN can observe for proper latch to avoid and nipple damage and patient verbalizes understanding.
--- NOTE | 2024-08-10 11:27 | PC.NURSE ---
Post Oxytocin IV completed at this time. IV saline locked at this time. RN educated reason of keeping IV in until next lab draw tomorrow morning in case of need of blood transfusion when labs are rechecked and patient verbalizes understanding and is ok with IV saline locked and staying in until it is appropriate.
[2024-08-11 00:01] VITALS: BP 106/61; PULSE 73
[2024-08-11 00:02] VITALS: BP 106/61; PULSE 73; TEMP 36.4
[2024-08-11 06:29] LABS: Basophils Percent Auto 0.3 % (0.2-2.0); Eosinophils Absolute Auto 0.1 10^3/uL (0.0-0.7); Eosinophils Percent Auto 0.4 % (0.9-7.0); Hematocrit 30.8 % (36.0-48.0); Immature Granulocytes Pct Auto 0.7 % (0.0-0.5); Lymphocytes Absolute Auto 2.4 10^3/uL (1.2-3.8); Lymphocytes Percent Auto 17.3 % (20.5-60.0); Mean Corpuscular HGB Conc 32.5 g/dL (29.9-35.2); Mean Corpuscular Hemoglobin 28.2 pg (26.7-34.0); Mean Platelet Volume 9.3 fL (9.5-13.5); Monocytes Percent Auto 7.2 % (1.7-12.0); Neutrophils Absolute Auto 10.4 10^3/uL (1.4-6.5); Neutrophils Percent Auto 74.1 % (43.0-75.0); Platelet Count 237 10^3/uL (150-450); Red Blood Count 3.54 10^6/uL (4.20-5.40)
--- NOTE | 2024-08-11 08:55 | PM.OBPN ---
OB - PN: Subj Subjective Patient comments: no complaints [place] status: doing well and well feeding status: exclusively Exam Constitutional Vital Signs, click to edit/add: Last Vital Signs Temp 97.6 F 08/11/24 00:02 Pulse 73 08/11/24 00:02 Resp 16 08/11/24 00:02 BP 106/61 08/11/24 00:02 O2 Del Method Room Air 08/11/24 00:02 Documenting provider has reviewed patient's vital signs: yes Common normals: no apparent distress General appearance: cooperative, comfortable, well kempt and well developed Orientation/consciousness: Yes awake, Yes oriented to person, Yes oriented to place and Yes oriented to time HENMT Common normals: normocephalic Eye Common normals: EOMs intact bilaterally General eye: normal appearance of both eyes Neck & C-Spine Common normals: full ROM Lymph Lymphatic: no lymphadenopathy noted Chest Common normals: inspection of chest normal Respiratory Common normals: normal respiratory effort, no retractions, no use of accessory muscles, clear to auscultation bilaterally and percussion normal Effort & inspection: able to speak in complete sentences Cardio Common normals: regular rate and regular rhythm Rate: regular rate Rhythm: regular rhythm GI Common normals: Normal to inspection, nondistended, normoactive bowel sounds present, soft to palpation and non-tender Common normals: no CVA tenderness Back & Pelvis Common normals: no CVA tenderness Extremity Common normals: normal to inspection Neuro Common normals: oriented x3 Sensorium/orientation: awake, alert, oriented to person and oriented to place Psych Psychiatry clinicians, please identify where your Mental Status Exam is documented: Mental Status Exam documented in the separate MSE Common normals: mental status grossly normal, thought process normal, cooperative, affect normal, speech normal, activity/motor behavior normal, denies hallucinations, denies homicidal ideation and denies suicidal ideation Appearance: grossly normal Attitude: calm Speech: normal speech Thought process: normal thought process Thought content: normal thought content Results Labs Labs: Short CBC 08/11/24 Range/Units 06:14 WBC 14.0 H (4.0-11.0) 10^3/uL Hgb 10.0 L (12.0-16.0) g/dL Hct 30.8 L (36.0-48.0) % Plt Count 237 (150-450) 10^3/uL Urinary Catheter Management Urinary Catheter Management Urethral: Cath placed during this visit: no OB - PN: A/P Assessment and Plan (1) Term : Plan - Vaginal Delivery day: 1 Plan: discharge home Time Spent with Patient Time: Total time spent is greater than 50% in coordination of care (as documented) at patient's floor/unit and/or counseling patient: Total time spent with greater than 50% in coordination of care (as documented) at patient's floor/unit and/or counseling patient: less than 15 minutes
[2024-08-11 09:13] VITALS: BP 115/65; PULSE 71
[2024-08-11 09:15] VITALS: TEMP 37.2
[2024-08-11] MEDS: DOCUSATE SODIUM 100 MG CAPSULE PO (09:24)
[2024-08-11] MEDS: IBUPROFEN 400 MG TABLET 800 MG PO (09:24)
== END 2024-08-11 15:40 | disposition home or self-care (01) | DRG 807 ==
PROVIDERS: Admitting Provider Midwife; Visit Provider Midwife
DX: O80 Encounter for full-term uncomplicated delivery (principal); Z37.0 Single live birth; Z3A.39 39 weeks gestation of pregnancy
CPT/HCPCS: 36415; 59050; 59410; 80307; 85025; 85027; 86850; 86900; 86901; J2795; J3010